=== PATIENT | male | born 1965 | race Caucasian/White ===

== ENCOUNTER 2017-01-13 07:59 | Inpatient (IN) | payer BC, OTHER ==
[~2017-01-13] VITALS: Ht 177.8 cm; Wt 98.7 kg
[2017-01-13] VITALS (22 sets, daily range): BP systolic 72–122; BP diastolic 60–82; PULSE 93–112; TEMP 36.6–37.3; O2SAT 92–96; Ht 177.8 cm; Wt 98.7 kg
[~2017-01-13 07:59] MED LIST: ASPI81TA21 PO; LEVO200T PO; LISI20TA3 PO; SIMV80TA2 PO
[2017-01-13] MEDS ORDERED: SODIUM CHLORIDE 0.9% 1000ML 2,000 ML IV STA (08:07)
[2017-01-13] MEDS ORDERED: ONDANSETRON INJ 2 MG/ML 2 ML VIAL IV STA (08:07)
[2017-01-13] MEDS ORDERED: MoRPHine SULFATE 10 MG/ML CARP/VIAL IV STA (08:07)
[2017-01-13] MEDS ORDERED: OPTIRAY 320 IV PRN (08:15)
--- NOTE | 2017-01-13 08:17 | EMERGENCY ROOM VISIT NOTE ---
History Report prepared by [place]: Austyn Dugan Under the Supervision of: Dr. Naveen Cavazos D.O. First contact with patient: 08:00 Chief Complaint: ABDOMINAL PAIN Stated Complaint: abd pain Nursing Triage Summary: pt arrives via Ems reports awoke with R groin pain radiates into RUQ and abdomen reports hx of hernia with 7hernia repairs History of Present Illness The patient is a 51 year old male who presents to the Emergency Room by EMS with complaints of constant abdominal pain beginning shortly prior to arrival. He has a history of an inguinal hernia that has been present for years. He notes that he has a history of six previous hernias. The patient states that his current pain feels unlike any he has ever had before. He also complains of pain in his groin. His last normal bowel movement was yesterday. The patient states that his pain began suddenly after waking up and turning off his alarm clock. He states that his pain radiates into his back. Pt denies headache, change in vision, fevers, chest pain, shortness of breath, diarrhea, pain with urination, and melena. He has no history of an appendectomy or cholecystectomy. The patient was seen in July 2012 for his inguinal hernia, but it was unable to be reduced. Source of History: patient Onset: Shortly prior to arrival Position: abdomen Timing: constant Associated Symptoms: + back pain, No fevers, No chest pain, No SOB, No nausea, No vomiting Note: The patient also complains of pain radiating into his groin. Review of Systems See HPI for pertinent positives & negatives. A total of 10 systems reviewed and were otherwise negative. Past Medical & Surgical Medical Problems: (1) Aortic aneurysm Family History Myocardial infarction at age less than 60 Social History Smoking Status: Current Every Day Smoker Marital Status: single Occupation Status: employed Current/Historical Medications Scheduled Aspirin Enteric Coated (Ecotrin Or Generic), 81 MG PO DAILY Levothyroxine Sodium (Synthroid), 200 MCG PO DAILY Lisinopril (Prinivil), 20 MG PO DAILY Simvastatin (Zocor), 80 MG PO QAM Allergies Coded Allergies: No Known Allergies (Unverified , 10/31/06) Physical Exam Vital Signs Date Time Temp Pulse Resp B/P (MAP) Pulse Ox O2 Delivery O2 Flow Rate FiO2 01/13/17 10:50 98 28 120/80 91 Nasal Cannula 2.0 01/13/17 10:15 92 Room Air 01/13/17 09:41 114 28 132/70 92 Room Air 01/13/17 08:00 36.6 72 20 141/86 96 Room Air Physical Exam GENERAL: Sitting up in bed, disheveled, moderate distress, holding right mid abdomen EYE EXAM: normal conjunctiva OROPHARYNX: no exudate, no erythema, lips, buccal mucosa, and tongue normal and mucous membranes are moist NECK: supple, no nuchal rigidity, no adenopathy, non-tender LUNGS: Clear to auscultation. Normal chest wall mechanics HEART: no murmurs, S1 normal and S2 normal ABDOMEN: Acutely tender to palpation throughout the right side of the abdomen. no masses, no rebound or guarding. BACK: Back is symmetrical on inspection and there is no deformity, no midline tenderness, no CVA tenderness. : Normal external genitalia. Right inguinal hernia which is non-tender. Tentacles are non-tender. SKIN: no rashes and no bruising UPPER EXTREMITIES: upper extremities are grossly normal. LOWER EXTREMITIES: No pitting edema. NEURO EXAM: Normal sensorium, cranial nerves II-XII grossly intact, normal speech, no gross weakness of arms, no gross weakness of legs. Medical Decision & Procedures ER Provider Diagnostic Interpretation: CT:Per my review, radiologist interpretation CT ABD/PELVIS IV CONTRAST ONLY FINDINGS: Lower chest: There are dependent atelectatic changes. Is small hiatal hernia. Liver: There is a stable 7 mm hepatic hypodensity likely representing a cyst. Gallbladder: Unremarkable. Spleen: Normal in size and attenuation. Pancreas: Unremarkable. Adrenal glands: Unremarkable. Kidneys: There is symmetric renal cortical enhancement. The kidneys are normal in size without hydronephrosis. Bowel: There is a right inguinal hernia which contains a knuckle of sigmoid colon. There is sigmoid colon wall thickening. There is scattered sigmoid diverticula. There is mild diffuse infiltration of the peritoneal fat. There are scattered extraluminal air bubbles. In the setting of abdominal pain, the findings are indicative of a perforated viscus. There is infiltration of the fat within the right inguinal hernia. There are no transition zone to indicate a high-grade bowel obstruction.. There is infiltration the periappendiceal fat. This may be a secondary finding given the diffuse pelvic inflammatory changes. A perforated appendicitis cannot be excluded, although this diagnosis is not suspected Peritoneum: There are small droplets of free intraperitoneal air. There is minimal free fluid within the abdomen and pelvis. Vasculature: The abdominal aorta is normal in course and caliber. Adenopathy: None. Pelvic viscera: The bladder, and pelvic viscera are unremarkable. Skeletal structures: No destructive osseous lesions are seen. IMPRESSION: 1. Small amounts of free intraperitoneal air. In the setting of abdominal pain, the findings are indicative of a perforated viscus. Surgical consultation is recommended 2. Right inguinal hernia containing a small knuckle of sigmoid colon. There is fluid within the hernia sac and infiltration of the fat within the hernia sac. 3. Scattered sigmoid diverticula. Sigmoid wall thickening. Infiltration of the pelvic peritoneal fat. Perforated diverticulitis must be considered as a possible etiology of the patient's free intraperitoneal air 4. No current evidence of bowel obstruction Electronically signed by: Thaddeus Lewis M.D. 01/13/2017 9:33 AM Laboratory Results 01/13/17 08:05 Red Blood Count 5.43, Mean Corpuscular Volume 93.2, Mean Corpuscular Hemoglobin 29.7, Mean Corpuscular Hemoglobin Concent 31.8, Mean Platelet Volume 10.3, Neutrophils (%) (Auto) 69.0, Lymphocytes (%) (Auto) 21.9, Monocytes (%) (Auto) 6.8, Eosinophils (%) (Auto) 1.2, Basophils (%) (Auto) 0.2, Neutrophils # (Auto) 5.57, Lymphocytes # (Auto) 1.77, Monocytes # (Auto) 0.55, Eosinophils # (Auto) 0.10, Basophils # (Auto) 0.02 01/13/17 08:05 Test 01/13/17 08:05 01/13/17 08:30 01/13/17 08:39 01/13/17 10:20 White Blood Count 8.08 K/uL (4.8-10.8) Red Blood Count 5.43 M/uL (4.7-6.1) Hemoglobin 16.1 g/dL (14.0-18.0) Hematocrit 50.6 % (42-52) Mean Corpuscular Volume 93.2 fL (80-100) Mean Corpuscular Hemoglobin 29.7 pg (25-34) Mean Corpuscular Hemoglobin Concent 31.8 g/dl (32-36) Platelet Count 177 K/uL (130-400) Mean Platelet Volume 10.3 fL (7.4-10.4) Neutrophils (%) (Auto) 69.0 % Lymphocytes (%) (Auto) 21.9 % Monocytes (%) (Auto) 6.8 % Eosinophils (%) (Auto) 1.2 % Basophils (%) (Auto) 0.2 % Neutrophils # (Auto) 5.57 K/uL (1.4-6.5) Lymphocytes # (Auto) 1.77 K/uL (1.2-3.4) Monocytes # (Auto) 0.55 K/uL (0.11-0.59) Eosinophils # (Auto) 0.10 K/uL (0-0.5) Basophils # (Auto) 0.02 K/uL (0-0.2) RDW Standard Deviation 50.1 fL (36.4-46.3) RDW Coefficient of Variation 14.6 % (11.5-14.5) Immature Granulocyte % (Auto) 0.9 % Immature Granulocyte # (Auto) 0.07 K/uL (0.00-0.02) Red Blood Cell Morphology Unremarkable Est Creatinine Clear Calc Drug Dose 118.5 ml/min Estimated GFR () 116.9 Estimated GFR (Non- 100.9 BUN/Creatinine Ratio 23.8 (10-20) Calcium Level 8.9 mg/dl (8.5-10.1) Total Bilirubin 0.3 mg/dl (0.2-1) Direct Bilirubin < 0.1 mg/dl (0-0.2) Aspartate Amino Transf (AST/SGOT) 16 U/L (15-37) Alanine Aminotransferase (ALT/SGPT) 32 U/L (12-78) Alkaline Phosphatase 57 U/L (45-117) Total Protein 7.0 gm/dl (6.4-8.2) Albumin 4.1 gm/dl (3.4-5.0) Lipase 848 U/L (73-393) Lactic Acid Level 1.3 mmol/L (0.4-2.0) Bedside Hemoglobin 16.7 g/dl (14.0-18.0) Bedside Hematocrit 49 % (42-52) Bedside Sodium 143 mEq/L (135-144) Bedside Potassium 4.6 mEq/L (3.3-5.0) Bedside Chloride 106 mEq/L (101-112) Bedside Total CO2 21 mEq/l (24-31) Anion Gap 22.0 mmol/L (16-25) Bedside Blood Urea Nitrogen 22 mg/dl (7-18) Bedside Creatinine 0.8 mg/dl (0.6-1.3) Bedside Glucose (other) 125 mg/dl (70-99) Bedside Ionized Calcium (Shankar) 1.18 mmol/l (1.12-1.32) Urine Color YELLOW Urine Appearance CLEAR (CLEAR) Urine pH 5.5 (4.5-7.5) Urine Specific Oliver > 1.045 (1.000-1.030) Urine Protein NEG (NEG) Urine Glucose (UA) NEG (NEG) Urine Ketones NEG (NEG) Urine Occult Blood 1+ (NEG) Urine Nitrite NEG (NEG) Urine Bilirubin NEG (NEG) Urine Urobilinogen NEG (NEG) Urine Leukocyte Esterase NEG (NEG) Urine WBC (Auto) 5-10 /hpf (0-5) Urine RBC (Auto) 0-4 /hpf (0-4) Urine Hyaline Casts (Auto) 1-5 /lpf (0-5) Urine Epithelial Cells (Auto) 20-30 /lpf (0-5) Urine Bacteria (Auto) NEG (NEG) Laboratory results per my review. Medications Administered Medications (Trade) Dose Ordered Sig/Luis Fernando Route Start Time Stop Time Status Last Admin Dose Admin Sodium Chloride 2,000 ml @ 999 mls/hr Q2H1M STAT IV 01/13/17 08:07 01/13/17 10:07 DC 01/13/17 08:12 999 MLS/HR Ondansetron HCl (Zofran Inj) 4 mg NOW STAT IV 01/13/17 08:07 01/13/17 08:09 DC 01/13/17 08:12 4 MG Morphine Sulfate (MoRPHine SULFATE INJ) 6 mg NOW STAT IV 01/13/17 08:07 01/13/17 08:09 DC 01/13/17 08:12 6 MG Hydromorphone HCl (Dilaudid Inj) 1 mg NOW STAT IV 01/13/17 08:24 01/13/17 08:25 DC 01/13/17 08:32 1 MG Fentanyl Citrate (Fentanyl Inj) 50 mcg NOW STAT IV 01/13/17 08:41 01/13/17 08:43 DC 01/13/17 08:41 50 MCG Fentanyl Citrate (Fentanyl Inj) 100 mcg ONE ONCE IV 01/13/17 09:30 01/13/17 09:31 DC 01/13/17 09:30 100 MCG Piperacillin Sod/ Tazobactam Sod (Zosyn Iv) 4.5 gm NOW STAT IV 01/13/17 09:36 01/13/17 09:37 DC 01/13/17 09:36 4.5 GM Fentanyl Citrate (Fentanyl Inj) 50 mcg NOW STAT IV 01/13/17 10:33 01/13/17 10:34 DC 01/13/17 10:33 50 MCG Hydromorphone HCl (Dilaudid Inj) 1 mg STK-MED ONCE .ROUTE 01/13/17 11:00 01/13/17 11:01 DC 01/13/17 11:00 1 MG Metronidazole 500 mg/Prmx 100 ml @ 100 mls/hr TODAY@1200 IV 01/13/17 12:00 01/13/17 16:00 01/13/17 12:15 100 MLS/HR Piperacillin Sod/ Tazobactam Sod 4.5 gm/Dextrose 120 ml @ 200 mls/hr TODAY@1200 IV 01/13/17 12:00 01/13/17 16:00 01/13/17 12:15 200 MLS/HR Vancomycin HCl (Vancomycin Inj) 100 mg STK-MED ONCE .ROUTE 01/13/17 12:41 01/13/17 12:42 DC 01/13/17 12:41 100 MG Lidocaine HCl (Xylocaine 1% Inj (Local)) 20 ml STK-MED ONCE .ROUTE 01/13/17 12:42 01/13/17 12:43 DC 01/13/17 12:42 20 ML Bacitracin (Bacitracin Oint) 45 appln STK-MED ONCE .ROUTE 01/13/17 12:42 01/13/17 12:43 DC 01/13/17 13:37 45 APPLN Bupivacaine HCl (Marcaine 0.5% MPF Inj) 30 ml STK-MED ONCE .ROUTE 01/13/17 12:42 01/13/17 12:43 DC 01/13/17 12:42 30 ML ED Course ED COURSE: Vital signs were reviewed and showed hypertension The patients medical record was reviewed The above diagnostic studies were performed and reviewed. ED treatments and interventions as stated above. 0804: The patient was evaluated in room A3. A complete history and physical examination was performed. 0807: Ordered Morphine Sulfate 6 mg IV, Zofran Inj 4 mg IV, Sodium Chloride 2000 ml @ 999 mls/hr IV. 0824: Ordered Dilaudid Inj 1 mg IV. 0838: The patient is still having significant pain, and states that the pain is going through to his back. 0841: Ordered Fentanyl Inj 50 mcg IV. 0930: Ordered Fentanyl Inj 100 mcg IV. 0936: Ordered Zosyn IV 4.5 gm IV. 0912: The patient has seen no relief from his pain medication. 0945: Upon reevaluation, the patient is resting comfortably. I discussed my findings with the patient and he understands and agrees with the treatment plan. Based on the patients age, coexisting illnesses, exam and lab findings the decision to treat as an inpatient was made. The patient remained stable while under my care. The patient will be evaluated for further management. Medical Decision Differential diagnoses includes but is not limited to gastritis, peptic ulcer disease, GERD, gallbladder disease, pancreatitis, small bowel obstruction, acute coronary syndrome, pericarditis, ischemic bowel, irritable bowel disease, irritable bowel syndrome, appendicitis, diverticulitis, malignancy, hernia, urinary tract infection, torsion, perforation, trauma, infectious. Patient is a 51-year-old male who presents the ER for severe right sided abdominal pain. On exam he does have a inguinal hernia which is nonreducible. He was given IV morphine, Dilaudid and fentanyl with no significant improvement of his pain. He did become hypoxic and was placed on nasal cannula. CT of his abdomen pelvis shows free air associated with fluid around his right inguinal hernia favor an incarcerated hernia. General surgery was consulted emergently. He was given Zosyn. She was given a bolus of normal saline. Patient was admitted and taken to the OR with peritonitis and a perforation likely secondary to his incarcerated hernia. Consults Time Called: [phone] Consulting Physician: Kate Mccrary PA-C -General Surgery Returned Call: [phone] I reviewed the patient's case with Kate Mccrary PA-C. She will evaluate the patient for further management. Impression Primary Impression: Peritonitis Additional Impressions: Intra-abdominal free air of unknown etiology Incarcerated hernia Critical Care I have personally spent 35 minutes of critical care time in the direct management of this patient. This includes bedside care, interpretation of diagnostic studies, and testing, discussion with consultants, patient, and family members, and other required patient management activities. This 35 minutes is in excess of all separately billable procedures. Scribe Attestation The scribe's documentation has been prepared under my direction and personally reviewed by me in its entirety. I confirm that the note above accurately reflects all work, treatment, procedures, and medical decision making performed by me. Departure Information Dispostion Being Evaluated By Surgeon Tc Lockett Jr,D.O. (PCP) Patient Instructions My [facility] Problem Qualifiers
[2017-01-13 08:20] LABS: HEMATOCRIT 50.6 % (42-52); MEAN CELL VOLUME 93.2 fL (80-100); MEAN CORPUSCULAR HEMOGLOBIN 29.7 pg (25-34); MEAN CORPUSCULAR HGB CONC 31.8 g/dl (32-36); MEAN PLATELET VOLUME 10.3 fL (7.4-10.4); PLATELET COUNT 177 K/uL (130-400); RED BLOOD COUNT 5.43 M/uL (4.7-6.1); WHITE BLOOD COUNT 8.08 K/uL (4.8-10.8)
[2017-01-13] MEDS ORDERED: HYDROmorphone INJ 1 MG/ML SYR IV STA (08:24)
[2017-01-13 08:39] LABS: BASO % 0.2 %; BASO ABS # 0.02 K/uL (0-0.2); COMPLETE YES; EOS % 1.2 %; IG% 0.9 %; LYMPH % 21.9 %; LYMPH ABS # 1.77 K/uL (1.2-3.4); MONO % 6.8 %
[2017-01-13] MEDS ORDERED: FENTANYL CITRATE INJ 50 MCG/1 ML 2 ML VIAL IV STA ×2 (08:41→10:33)
[2017-01-13 08:44] LABS: ALT/SGPT 32 U/L (12-78); BLOOD UREA NITROGEN 21 mg/dl (7-18); BUN/CREATININE RATIO 23.8 (10-20); CARBON DIOXIDE 24 mmol/L (21-32); CHLORIDE 111 mmol/L (98-107); CREATININE 0.88 mg/dl (0.60-1.40); GLUCOSE 124 mg/dl (70-99); POTASSIUM 4.4 mmol/L (3.5-5.1); SODIUM 144 mmol/L (136-145)
[2017-01-13 08:47] LABS: ALKALINE PHOSPHATASE 57 U/L (45-117); AST/SGOT 16 U/L (15-37)
[2017-01-13 08:50] LABS: CALCIUM 8.9 mg/dl (8.5-10.1)
[2017-01-13 08:52] LABS: ISTAT CREATININE 0.8 mg/dl (0.6-1.3); ISTAT HEMOGLOBIN 16.7 g/dl (14.0-18.0); ISTAT IONIZED CALCIUM 1.18 mmol/l (1.12-1.32)
[2017-01-13] MEDS ORDERED: FENTANYL CITRATE INJ 50 MCG/1 ML 2 ML VIAL IV ONE (09:30)
--- NOTE | 2017-01-13 09:34 | DIAGNOSTIC IMAGING REPORT ---
CT ABD/PELVIS IV CONTRAST ONLY CLINICAL HISTORY: Right-sided abdominal pain COMPARISON STUDY: 10/04/2013 TECHNIQUE: Following the IV administration of 91 mL of Optiray-320, CT scan of the abdomen and pelvis was performed from the lung bases to the proximal femurs. Images are reviewed in the axial, sagittal, and coronal planes. IV contrast was administered without complication. CT DOSE: 625.48 mGy.cm FINDINGS: Lower chest: There are dependent atelectatic changes. Is small hiatal hernia. Liver: There is a stable 7 mm hepatic hypodensity likely representing a cyst. Gallbladder: Unremarkable. Spleen: Normal in size and attenuation. Pancreas: Unremarkable. Adrenal glands: Unremarkable. Kidneys: There is symmetric renal cortical enhancement. The kidneys are normal in size without hydronephrosis. Bowel: There is a right inguinal hernia which contains a knuckle of sigmoid colon. There is sigmoid colon wall thickening. There is scattered sigmoid diverticula. There is mild diffuse infiltration of the peritoneal fat. There are scattered extraluminal air bubbles. In the setting of abdominal pain, the findings are indicative of a perforated viscus. There is infiltration of the fat within the right inguinal hernia. There are no transition zone to indicate a high-grade bowel obstruction.. There is infiltration the periappendiceal fat. This may be a secondary finding given the diffuse pelvic inflammatory changes. A perforated appendicitis cannot be excluded, although this diagnosis is not suspected Peritoneum: There are small droplets of free intraperitoneal air. There is minimal free fluid within the abdomen and pelvis. Vasculature: The abdominal aorta is normal in course and caliber. Adenopathy: None. Pelvic viscera: The bladder, and pelvic viscera are unremarkable. Skeletal structures: No destructive osseous lesions are seen. IMPRESSION: 1. Small amounts of free intraperitoneal air. In the setting of abdominal pain, the findings are indicative of a perforated viscus. Surgical consultation is recommended 2. Right inguinal hernia containing a small knuckle of sigmoid colon. There is fluid within the hernia sac and infiltration of the fat within the hernia sac. 3. Scattered sigmoid diverticula. Sigmoid wall thickening. Infiltration of the pelvic peritoneal fat. Perforated diverticulitis must be considered as a possible etiology of the patient's free intraperitoneal air 4. No current evidence of bowel obstruction Electronically signed by: Thaddeus Lewis M.D. 01/13/2017 9:33 AM Dictated Date/Time: 01/13/2017 9:19 AM
[2017-01-13] MEDS ORDERED: PIPERACILLIN/TAZOBACTAM 4.5 GM/100ML D5W IV STA (09:36)
--- NOTE | 2017-01-13 10:28 | History and Physical: Surg Cnt ---
History & Physical Date Jan 13, 2017. Chief Complaint Abdominal pain, RLQ around to back History of Present Illness The patient is a 51 year old male with complaints of right sided abdominal pain with radiation to the back that began this morning. States he woke up this morning and pain was severe. States he was in his normal state of health yesterday and was even at his doctors office for routine examination. States he has a known right inguinal hernia for years and has not bothered him. States he has a bulge in the right groin at times but is able to reduce back in. Last bowel movement a few days ago and was normal. Has had 6 previous inguinal hernia repairs in the past. 3 on the right side and 3 on the left. His last hernia repair was in the 's on the left side. 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 Has never had this type of pain before. Labs showed no leukocytosis and lactic acid normal at 1.3. CT scan shows right inguinal hernia with a knuckle of sigmoid colon and sigmoid wall thickening with extraluminal air suggesting perforated viscous. Acute diverticulitis with perforation cannot be excluded. Past Medical/Surgical History Medical Problems: (1) Aortic aneurysm Allergies Coded Allergies: No Known Allergies (Unverified , 10/31/06) Home Medications Scheduled Aspirin Enteric Coated (Ecotrin Or Generic), 81 MG PO DAILY Levothyroxine Sodium (Synthroid), 200 MCG PO DAILY Lisinopril (Prinivil), 20 MG PO DAILY Simvastatin (Zocor), 80 MG PO QAM Physical Examination Skin: warm/dry, no rash Eyes: sclerae normal Head: normocephalic, atraumatic Neck: trachea midline Respiratory/Chest: no respiratory distress Cardiovascular: + pertinent finding (tachycardic) Abdomen / GI: + pertinent finding (peritonitis of the entire abdomen, with rigidity and guarding in the RLQ) Back: normal inspection Extremities: normal inspection Neurologic/Psych: alert, oriented x 3 Addiitonal Comments: patient in moderate distress, uncomfortable Diagnosis CT ABD/PELVIS IV CONTRAST ONLY CLINICAL HISTORY: Right-sided abdominal pain COMPARISON STUDY: 10/04/2013 TECHNIQUE: Following the IV administration of 91 mL of Optiray-320, CT scan of the abdomen and pelvis was performed from the lung bases to the proximal femurs. Images are reviewed in the axial, sagittal, and coronal planes. IV contrast was administered without complication. CT DOSE: 625.48 mGy.cm FINDINGS: Lower chest: There are dependent atelectatic changes. Is small hiatal hernia. Liver: There is a stable 7 mm hepatic hypodensity likely representing a cyst. Gallbladder: Unremarkable. Spleen: Normal in size and attenuation. Pancreas: Unremarkable. Adrenal glands: Unremarkable. Kidneys: There is symmetric renal cortical enhancement. The kidneys are normal in size without hydronephrosis. Bowel: There is a right inguinal hernia which contains a knuckle of sigmoid colon. There is sigmoid colon wall thickening. There is scattered sigmoid diverticula. There is mild diffuse infiltration of the peritoneal fat. There are scattered extraluminal air bubbles. In the setting of abdominal pain, the findings are indicative of a perforated viscus. There is infiltration of the fat within the right inguinal hernia. There are no transition zone to indicate a high-grade bowel obstruction.. There is infiltration the periappendiceal fat. This may be a secondary finding given the diffuse pelvic inflammatory changes. A perforated appendicitis cannot be excluded, although this diagnosis is not suspected Peritoneum: There are small droplets of free intraperitoneal air. There is minimal free fluid within the abdomen and pelvis. Vasculature: The abdominal aorta is normal in course and caliber. Adenopathy: None. Pelvic viscera: The bladder, and pelvic viscera are unremarkable. Skeletal structures: No destructive osseous lesions are seen. IMPRESSION: 1. Small amounts of free intraperitoneal air. In the setting of abdominal pain, the findings are indicative of a perforated viscus. Surgical consultation is recommended 2. Right inguinal hernia containing a small knuckle of sigmoid colon. There is fluid within the hernia sac and infiltration of the fat within the hernia sac. 3. Scattered sigmoid diverticula. Sigmoid wall thickening. Infiltration of the pelvic peritoneal fat. Perforated diverticulitis must be considered as a possible etiology of the patient's free intraperitoneal air 4. No current evidence of bowel obstruction DIAGNOSIS Incarcerated Right inguinal hernia containing Sigmoid colon with free intraperitoneal air -concern for sigmoid colon perforation due to incarceration or acute diverticulitis - abdominal examination shows peritonitis and rigidity - nonreducible right inguinal hernia - no leukocytosis - lactic acid 1.3 Plan of Treatment Plan to take patient back to operating room for exploratory laparotomy, possible bowel resection, possible ostomy, possible right inguinal hernia repair Informed patient of procedure and risks including bleeding, infection, injury to surrounding organs/tissues, cardiopulmonary complications, blood clots, including . Patient understood and informed consent obtained Will be admitted to Med/surg floor post operatively Has received IV zosyn and 1 L of NS 1 L of LR wide open Continue IV Zosyn 1 mg of IV Dilaudid stat Dr. Whitten has seen and examined patient, agrees with assessment and plan.
[2017-01-13 10:41] LABS: URINE APPEARANCE CLEAR (CLEAR); URINE BILIRUBIN NEG (NEG); URINE COLOR YELLOW; URINE EPITHELIAL CELL AUTO 20-30 /lpf (0-5); URINE NITRITE NEG (NEG); URINE PH 5.5 (4.5-7.5); URINE SPECIFIC GRAVITY > 1.045 (1.000-1.030); UROBILINOGEN NEG (NEG); ZZUR CULT IF INDIC CLEAN CATCH NO
[2017-01-13 10:43] LABS: MANUAL MICROSCOPIC REQUIRED? NO; REVIEW REQ? NO
[2017-01-13] MEDS ORDERED: HYDROmorphone INJ 1 MG/ML SYR ONE (11:00)
--- NOTE | 2017-01-13 11:32 | History & Physical Bridge Note ---
H&P Re-Evaluation Bridge Note: I have examined the patient, reviewed the History & Physical and in the interval since the performance of the History & Physical I have noted the following changes of clinical significance: No changes noted
[2017-01-13] MEDS ORDERED: NURSING VERBAL MED ORDER ONE (11:45)
[2017-01-13] MEDS ORDERED: KETAMINE HCL INJ 50 MG/ML 10 ML VIAL ONE (11:50)
[2017-01-13] MEDS ORDERED: FENTANYL CITRATE INJ 50 MCG/1 ML 2 ML VIAL ONE ×3 (11:50→14:18)
[2017-01-13] MEDS ORDERED: MIDAZOLAM HCL 1 MG/ML 2ML VIAL ONE (11:50)
[2017-01-13] MEDS ORDERED: PIPERACILL/TAZOBAC IV 4.5 GM in DEXTROSE 5% 100ML IV SCH (12:00)
[2017-01-13] MEDS ORDERED: METRONIDAZOLE 500MG / NSS IV SCH (12:00)
[2017-01-13] MEDS ORDERED: HYDROmorphone INJ 2 MG/ML SYR/VIAL ONE ×3 (12:37→16:14)
[2017-01-13] MEDS ORDERED: VANCOMYCIN HCL 1000MG/20ML VIAL ONE (12:41)
[2017-01-13] MEDS ORDERED: LIDOCAINE HCL 1% 20 ML VIAL ONE (12:42)
[2017-01-13] MEDS ORDERED: BUPIVACAINE 0.5 % 5 MG/1 ML MPF 30ML VIAL ONE (12:42)
[2017-01-13] MEDS ORDERED: BACITRACIN OINT 15 GM TUBE ONE (12:42)
[2017-01-13] MEDS ORDERED: EpHEDrine SULFATE INJ 50 MG/ML AMP IV PRN (14:00)
[2017-01-13] MEDS ORDERED: ONDANSETRON INJ 2 MG/ML 2 ML VIAL IV PRN ×2 (14:00→15:45)
[2017-01-13] MEDS ORDERED: ATROPINE SULFATE 0.1 MG/ML 5ML SYR IV PRN (14:00)
[2017-01-13] MEDS ORDERED: CISATRACURIUM BESYLATE IV SOLN 2 MG/ML 10 ML VIAL ONE (14:31)
[2017-01-13] MEDS ORDERED: ONDANSETRON INJ 2 MG/ML 2 ML VIAL ONE (14:31)
[2017-01-13] MEDS ORDERED: SUCCINYLCHOLINE CHLORIDE 20 MG/ML 10 ML VIAL IV ONE (14:31)
[2017-01-13] MEDS ORDERED: GLYCOPYRROLATE INJ 0.2 MG/ML VIAL ONE (14:31)
[2017-01-13] MEDS ORDERED: PHENYLEPHRINE HCL INJ 10 MG/ML VIAL ONE (14:31)
[2017-01-13] MEDS ORDERED: NEOSTIGMINE METHYLSULFATE 5 MG/5 ML SYR ONE (14:31)
[2017-01-13] MEDS ORDERED: DEXAMETHASONE SOD INJ 4 MG/ML VIAL ONE (14:31)
[2017-01-13] MEDS ORDERED: VASOPRESSIN 20 UNIT/ML VIAL ONE (15:02)
--- NOTE | 2017-01-13 15:34 | [facility] Post Operative Brief Note ---
Immediate Operative Summary Operative Date Jan 13, 2017. Pre-Operative Diagnosis incarcerated right inguinal hernia, pneumoperitoneum Post-Operative Diagnosis incarcerated right inguinal hernia, pneumoperitoneum, perforated sigmoid colon Procedure(s) Performed Exploratory Laparotomy; Sigmoid Colon Resection, Creation Greg Pouch, Colostomy, primary Repair Right Inguinal Hernia Surgeon Dr. Nacho Whitten [employer] Workflow Consultant Surgeon(s) Valencia Mccrary PA-C Estimated Blood Loss 30mL Findings perforation of sigmoid colon, peritonitis, incarcerated right inguinal hernia Fluids (cc crystalloids) 5000ml Specimens B. Right Hernia Sac, sigmoid colon Drains AYDIN X 1, right inguinal drainage with ayah Anesthesia general Complication(s) None Disposition Surgical ICU
[2017-01-13] MEDS: FENTANYL CITRATE INJ 50 MCG/1 ML 2 ML VIAL IV PRN ×4 (15:42→15:57)
[2017-01-13] MEDS ORDERED: ACETAMINOPHEN 325 MG TAB PO PRN (15:45)
[2017-01-13] MEDS: HYDROmorphone INJ 1 MG/ML SYR IV PRN ×4 (16:14→21:48)
--- NOTE | 2017-01-13 16:41 | Anesthesiology Progress Note ---
Anesthesia Post Op Note Date & Time Jan 13, 2017 at 16:41 Vital Signs Pain Intensity: 4 Vital Signs Past 12 Hours Date Time Temp Pulse Resp B/P (MAP) Pulse Ox O2 Delivery O2 Flow Rate FiO2 01/13/17 16:30 37.4 106 14 115/86 93 Nasal Cannula 4 01/13/17 16:20 37.4 104 14 125/81 93 Nasal Cannula 4 01/13/17 16:10 104 14 124/71 93 Nasal Cannula 4 01/13/17 16:00 105 14 133/86 93 Nasal Cannula 4 01/13/17 15:50 96 14 144/84 92 Nasal Cannula 4 01/13/17 15:40 101 14 138/93 96 Mask 10 01/13/17 15:32 37.1 101 14 146/105 95 Mask 10 01/13/17 10:50 98 28 120/80 91 Nasal Cannula 2.0 01/13/17 10:15 92 Room Air 01/13/17 09:41 114 28 132/70 92 Room Air 01/13/17 08:00 36.6 72 20 141/86 96 Room Air Notes Mental Status: alert / awake / arousable, participated in evaluation Pt Amnestic to Procedure: Yes Nausea / Vomiting: adequately controlled Pain: adequately controlled Airway Patency, RR, SpO2: stable & adequate BP & HR: stable & adequate Hydration State: stable & adequate Anesthetic Complications: no major complications apparent
[2017-01-13] MEDS ORDERED: PIPERACILL/TAZOBAC CONSULT ACTIVE PRN ×2 (17:30→18:10)
[2017-01-13] MEDS ORDERED: VANCOMYCIN CONSULT ACTIVE PRN ×2 (17:30→18:09)
[2017-01-13] MEDS ORDERED: VANCOMYCIN INJ 2,400 MG in SODIUM CHLORIDE 0.9% 500ML 500 ML IV SCH (18:00)
[2017-01-13 18:10] LABS: PROTHROMBIN TIME (PATIENT) 10.9 SECONDS (9.0-12.0)
--- NOTE | 2017-01-13 18:13 | Critical Care Consultation ---
Critical Care Consultation Date of Consultation: Jan 13, 2017. Attending Physician: Nacho Whitten MD Reason for Consultation: post op peritonitis due to perforated viscus History of Present Illness Mr Lin is a 51 year old male who has a long standing history with inguinal hernias. he has had 3 hernia surgeries on each side in the past. He woke up this morning with right sided abdominal pain radiating to the back. He has been to his PCP the day earlier and was in his usual state of health with a bulging hernia on the right. His pain was more severe than any he had experienced before so he presented to ED where a CT scan of the abdomen showed: "Avimor 5d Small amounts of free intraperitoneal air.suggesting a perforated viscus. Right inguinal hernia with incarcerated sigmoid colon. Sigmoid diverticulae and Sigmoid wall thickening. Infiltration of the pelvic peritoneal fat and inguinal far. Therefore he was taken by Dr Whitten who performed Exploratory Laparotomy; Sigmoid Colon Resection, Creation Greg Pouch, Colostomy, primary Repair Right Inguinal Hernia. The patient received 5 liters of crystalloids intraop and had EBL of 30 ml. The patient was then transferred to MICU. He has a AYDIN drain with 50 ml of serosanguinous fluid. He reports pain 5/10, and appropriate tenderness in the belly. He denies headache chest pain or shortness of breath. Family History Myocardial infarction at age less than 60 non contributory to this admission Social History Smoking Status: Current Every Day Smoker Marital Status: single Occupation Status: employed Allergies Coded Allergies: No Known Allergies (Unverified , 10/31/06) Home Medications Scheduled Aspirin Enteric Coated (Ecotrin Or Generic), 81 MG PO DAILY Levothyroxine Sodium (Synthroid), 200 MCG PO DAILY Lisinopril (Prinivil), 20 MG PO DAILY Simvastatin (Zocor), 80 MG PO QAM Current Inpatient Medications Current Inpatient Medications Medications (Trade) Dose Ordered Sig/Luis Fernando Route Start Time Stop Time Status Last Admin Dose Admin Ioversol (Optiray 320) 100 ml UD PRN IV 01/13/17 08:15 01/17/17 08:14 Fentanyl Citrate (Fentanyl Inj) 50 mcg Q5M PRN IV 01/13/17 14:00 01/13/17 19:00 01/13/17 15:57 50 MCG Hydromorphone HCl (Dilaudid Inj) 0.5 mg Q5M PRN IV 01/13/17 14:00 01/13/17 19:00 01/13/17 16:19 0.5 MG Ondansetron HCl (Zofran Inj) 4 mg ONE PRN IV 01/13/17 14:00 01/13/17 19:00 Ephedrine Sulfate (EpHEDrine SULFATE INJ) 5 mg Q5M PRN IV 01/13/17 14:00 01/13/17 19:00 Atropine Sulfate (Atropine Sulfate 0.1MG/Ml Inj) 0.5 mg Q1M PRN IV 01/13/17 14:00 01/13/17 19:00 Potassium Chloride/Dextrose/ Sod Cl 1,000 ml @ 150 mls/hr Q6H40M IV 01/13/17 15:34 02/12/17 15:33 UNV Piperacillin Sod/ Tazobactam Sod 3.375 gm/Dextrose 115 ml @ 28.7 mls/hr Q6 IV 01/13/17 18:00 01/14/17 17:59 UNV Ondansetron HCl (Zofran Inj) 4 mg Q4H PRN IV 01/13/17 15:45 02/12/17 15:44 Acetaminophen (Tylenol Tab) 650 mg Q6H PRN PO 01/13/17 15:45 02/12/17 15:44 Hydromorphone HCl (Dilaudid Inj) 1 mg Q3H PRN IV 01/13/17 15:45 01/27/17 15:44 UNV Hydromorphone HCl (Dilaudid Inj) 1.2 mg Q3H PRN IV 01/13/17 15:45 01/27/17 15:44 UNV Vancomycin HCl 1000 mg/Sodium Chloride 270 ml @ 125 mls/hr Q12 IV 01/13/17 21:00 01/15/17 20:59 UNV Pantoprazole Sodium 40 mg/ Syringe 10 ml @ 5 mls/min DAILY@,21 IV 01/13/17 21:00 02/12/17 20:59 UNV Vancomycin HCl (Consult) 1 ea UD PRN N/A 01/13/17 17:30 02/12/17 17:29 Piperacillin Sod/ Tazobactam Sod (Consult) 1 ea UD PRN N/A 01/13/17 17:30 02/12/17 17:29 Vancomycin HCl 2400 mg/Sodium Chloride 548 ml @ 200 mls/hr TODAY@1800 IV 01/13/17 18:00 01/13/17 23:00 Levothyroxine Sodium 100 mcg/ Syringe 5 ml @ 2 mls/min DAILY@09 IV 01/14/17 09:00 02/13/17 08:59 UNV Enalaprilat 2.5 mg/Dextrose 27 ml @ 100 mls/hr Q12 IV 01/14/17 09:00 02/13/17 08:59 UNV Miscellaneous Information (Pharmacy Consult) 1 ea NOW STAT N/A 01/13/17 17:25 01/13/17 17:26 UNV Miscellaneous Information (Pharmacy Consult) 1 ea NOW STAT N/A 01/13/17 17:25 01/13/17 17:26 UNV Miscellaneous (Xopenex/ Atrovent Neb) 1 ea Q6R INH 01/13/17 21:00 02/12/17 20:59 UNV Heparin Sodium (Porcine) (Heparin Sq 5000 Unit/0.5ml) 5,000 unit Q8 SQ 01/14/17 08:00 02/13/17 07:59 UNV Review of Systems The patient admits to having hypertension hyperlipidemia and hypothryoidism with constipation. No headaches no wheezing. He says he has daily cough prodcutive of yellowish sputum. he has no urinary symptoms and no symptoms of polydipsi polyuria or diagnosis of DM. Denies chronic headaches or other pain syndromes aside from the inguinal hernia problem. No claudication or leg swelling either. Denies a history of KUSHAL. otherwise a 10 point ROS is negative Physical Exam Date Time Temp Pulse Resp B/P (MAP) Pulse Ox O2 Delivery O2 Flow Rate FiO2 01/13/17 17:30 110 25 105/71 (82) 95 01/13/17 17:15 37.3 112 23 109/68 (82) 94 Nasal Cannula 4.0 01/13/17 16:40 37.4 106 16 115/86 93 Nasal Cannula 4 01/13/17 16:30 37.4 106 14 115/86 93 Nasal Cannula 4 01/13/17 16:20 37.4 104 14 125/81 93 Nasal Cannula 4 01/13/17 16:10 104 14 124/71 93 Nasal Cannula 4 01/13/17 16:00 105 14 133/86 93 Nasal Cannula 4 01/13/17 15:50 96 14 144/84 92 Nasal Cannula 4 01/13/17 15:40 101 14 138/93 96 Mask 10 01/13/17 15:32 37.1 101 14 146/105 95 Mask 10 01/13/17 10:50 98 28 120/80 91 Nasal Cannula 2.0 01/13/17 10:15 92 Room Air 01/13/17 09:41 114 28 132/70 92 Room Air 01/13/17 08:00 36.6 72 20 141/86 96 Room Air General Appearance: mild distress Head: normocephalic, atraumatic Eyes: PERRLA, no discharge, sclerae normal ENT: normal ear exam, poor dentition Neck: normal range of motion, supple Respiratory: wheezing (bilateral end expiratory) Cardiovasular: regular rate/rhythm, normal S1S2, no M/G/R Abdomen: other (right paraambilical and inguinal dressing with colostomy in the LLQ, clean and pink. with minimal clear fluid in the bag. There is no oozing or bleeding. He has direct tenderness in the RLQ and epigastic areas less so in the LLQ) Genitourinary - Male: external genitalia normal Upper Extremities: no edema, other (no cyanosis and no clubbing) Lower Extremities: no edema (no cyanosis and no clubbing) Neuro: alert, oriented x 3, normal motor exam Psychiatric: normal affect Laboratory Results Last 24 Hours Test 01/13/17 08:05 01/13/17 08:30 01/13/17 08:39 01/13/17 10:20 White Blood Count 8.08 K/uL Red Blood Count 5.43 M/uL Hemoglobin 16.1 g/dL Hematocrit 50.6 % Mean Corpuscular Volume 93.2 fL Mean Corpuscular Hemoglobin 29.7 pg Mean Corpuscular Hemoglobin Concent 31.8 g/dl Platelet Count 177 K/uL Mean Platelet Volume 10.3 fL Neutrophils (%) (Auto) 69.0 % Lymphocytes (%) (Auto) 21.9 % Monocytes (%) (Auto) 6.8 % Eosinophils (%) (Auto) 1.2 % Basophils (%) (Auto) 0.2 % Neutrophils # (Auto) 5.57 K/uL Lymphocytes # (Auto) 1.77 K/uL Monocytes # (Auto) 0.55 K/uL Eosinophils # (Auto) 0.10 K/uL Basophils # (Auto) 0.02 K/uL RDW Standard Deviation 50.1 fL RDW Coefficient of Variation 14.6 % Immature Granulocyte % (Auto) 0.9 % Immature Granulocyte # (Auto) 0.07 K/uL Red Blood Cell Morphology Unremarkable Sodium Level 144 mmol/L Potassium Level 4.4 mmol/L Chloride Level 111 mmol/L Carbon Dioxide Level 24 mmol/L Anion Gap 9.0 mmol/L 22.0 mmol/L Blood Urea Nitrogen 21 mg/dl Creatinine 0.88 mg/dl Est Creatinine Clear Calc Drug Dose 118.5 ml/min Estimated GFR () 116.9 Estimated GFR (Non- 100.9 BUN/Creatinine Ratio 23.8 Random Glucose 124 mg/dl Calcium Level 8.9 mg/dl Total Bilirubin 0.3 mg/dl Direct Bilirubin < 0.1 mg/dl Aspartate Amino Transf (AST/SGOT) 16 U/L Alanine Aminotransferase (ALT/SGPT) 32 U/L Alkaline Phosphatase 57 U/L Total Protein 7.0 gm/dl Albumin 4.1 gm/dl Lipase 848 U/L Lactic Acid Level 1.3 mmol/L Bedside Hemoglobin 16.7 g/dl Bedside Hematocrit 49 % Bedside Sodium 143 mEq/L Bedside Potassium 4.6 mEq/L Bedside Chloride 106 mEq/L Bedside Total CO2 21 mEq/l Bedside Blood Urea Nitrogen 22 mg/dl Bedside Creatinine 0.8 mg/dl Bedside Glucose (other) 125 mg/dl Bedside Ionized Calcium (Shankar) 1.18 mmol/l Urine Color YELLOW Urine Appearance CLEAR Urine pH 5.5 Urine Specific [place] > 1.045 Urine Protein NEG Urine Glucose (UA) NEG Urine Ketones NEG Urine Occult Blood 1+ Urine Nitrite NEG Urine Bilirubin NEG Urine Urobilinogen NEG Urine Leukocyte Esterase NEG Urine WBC (Auto) 5-10 /hpf Urine RBC (Auto) 0-4 /hpf Urine Hyaline Casts (Auto) 1-5 /lpf Urine Epithelial Cells (Auto) 20-30 /lpf Urine Bacteria (Auto) NEG Test 01/13/17 17:37 01/13/17 17:38 01/13/17 17:[address] scan as above Assessment & Plan This is a 51 year old male known to have HTN hypothyroidism smoker of 1 ppd hyperlipidemia admitted with incarcerated R inguinal hernia and sigmoid perforation with peritonitis s/p resection lockett's pouch construction and colostomy. for further observation and management in MICU neurologic pain control with hydromorphone IV Q3 PRN. We may escalate if patient has pain respiratory He seems to have COPD and is wheezing. Ipratropium/levalbuterol Q6 hours incentive spirometer and would suggest outpatietn PFT and pulmonary eval for sleep study as well cardiovascular will resume his simvastatin once it is OK with surgery to have PO intake Will resume ASA once he is able to have PO intake enalaprilat 2.5 mg IV Q12 to control BP until his lisinopril can be resumed 20 mg daily obtain Echo in am GI NPO overnight pantoprazole IV Renal 100 ml/hr LR FU Mg and Phosphorus Maintain UO 0.5ml/kg Bw -hr overnight ID vancomycin and zosyn with pharmacy dosing to cover for colonic star related peritonitis blood culture and urine culture given WBC DVT prophylaxis with SCDs in am will start heparin then progress to lovenox depending on Cr level He has a garcia catheter, an A line in the left radial artery and peripheral IVs. Patient is critically ill and will monitor and manage in ICU total CC time 50 minutes. Family updated at bedside,
[2017-01-13] MEDS ORDERED: LACTATED RINGER'S 1000ML 1,000 ML IV SCH (18:15)
[2017-01-13 18:19] LABS: MAGNESIUM 1.3 mg/dl (1.8-2.4); PHOSPHORUS 2.7 mg/dl (2.5-4.9)
--- NOTE | 2017-01-13 18:28 | Surgery Progress Note ---
Surgery Progress Note Date of Service Jan 13, 2017. Subjective + feeling well pt is doing better, less abdominal pain, no nausea, no vomiting, Objective Vital Signs: Date Time Temp Pulse Resp B/P (MAP) Pulse Ox O2 Delivery O2 Flow Rate FiO2 01/13/17 18:15 100 14 93/71 (78) 94 01/13/17 18:00 109 20 102/71 (81) 93 01/13/17 18:00 109 20 102/71 (81) 93 01/13/17 17:45 104 18 108/70 (83) 95 01/13/17 17:30 110 25 105/71 (82) 95 01/13/17 17:15 37.3 112 23 109/68 (82) 94 Nasal Cannula 4.0 01/13/17 16:40 37.4 106 16 115/86 93 Nasal Cannula 4 01/13/17 16:30 37.4 106 14 115/86 93 Nasal Cannula 4 01/13/17 16:20 37.4 104 14 125/81 93 Nasal Cannula 4 01/13/17 16:10 104 14 124/71 93 Nasal Cannula 4 01/13/17 16:00 105 14 133/86 93 Nasal Cannula 4 01/13/17 15:50 96 14 144/84 92 Nasal Cannula 4 01/13/17 15:40 101 14 138/93 96 Mask 10 01/13/17 15:32 37.1 101 14 146/105 95 Mask 10 01/13/17 10:50 98 28 120/80 91 Nasal Cannula 2.0 01/13/17 10:15 92 Room Air 01/13/17 09:41 114 28 132/70 92 Room Air 01/13/17 08:00 36.6 72 20 141/86 96 Room Air General Appearance: WD/WN Head: normocephalic Neck: supple Respiratory/Chest: lungs clear, normal breath sounds Cardiovascular: regular rate, rhythm, no edema, no gallop, no JVD Abdomen: normal bowel sounds, + tenderness Incision(s): intact Extremities: normal range of motion, non-tender, normal inspection Laboratory Results: Results Past 24 Hours Test 01/13/17 08:05 01/13/17 08:30 01/13/17 08:39 01/13/17 10:20 Range/Units White Blood Count 8.08 4.8-10.8 K/uL Red Blood Count 5.43 4.7-6.1 M/uL Hemoglobin 16.1 14.0-18.0 g/dL Hematocrit 50.6 42-52 % Mean Corpuscular Volume 93.2 80-100 fL Mean Corpuscular Hemoglobin 29.7 25-34 pg Mean Corpuscular Hemoglobin Concent 31.8 32-36 g/dl Platelet Count 177 130-400 K/uL Mean Platelet Volume 10.3 7.4-10.4 fL Neutrophils (%) (Auto) 69.0 % Lymphocytes (%) (Auto) 21.9 % Monocytes (%) (Auto) 6.8 % Eosinophils (%) (Auto) 1.2 % Basophils (%) (Auto) 0.2 % Neutrophils # (Auto) 5.57 1.4-6.5 K/uL Lymphocytes # (Auto) 1.77 1.2-3.4 K/uL Monocytes # (Auto) 0.55 0.11-0.59 K/uL Eosinophils # (Auto) 0.10 0-0.5 K/uL Basophils # (Auto) 0.02 0-0.2 K/uL RDW Standard Deviation 50.1 36.4-46.3 fL RDW Coefficient of Variation 14.6 11.5-14.5 % Immature Granulocyte % (Auto) 0.9 % Immature Granulocyte # (Auto) 0.07 0.00-0.02 K/uL Red Blood Cell Morphology Unremarkable Sodium Level 144 136-145 mmol/L Potassium Level 4.4 3.5-5.1 mmol/L Chloride Level 111 98-107 mmol/L Carbon Dioxide Level 24 21-32 mmol/L Anion Gap 9.0 22.0 16-25 mmol/L Blood Urea Nitrogen 21 7-18 mg/dl Creatinine 0.88 0.60-1.40 mg/dl Est Creatinine Clear Calc Drug Dose 118.5 ml/min Estimated GFR () 116.9 Estimated GFR (Non- 100.9 BUN/Creatinine Ratio 23.8 10-20 Random Glucose 124 70-99 mg/dl Calcium Level 8.9 8.5-10.1 mg/dl Total Bilirubin 0.3 0.2-1 mg/dl Direct Bilirubin < 0.1 0-0.2 mg/dl Aspartate Amino Transf (AST/SGOT) 16 15-37 U/L Alanine Aminotransferase (ALT/SGPT) 32 12-78 U/L Alkaline Phosphatase 57 45-117 U/L Total Protein 7.0 6.4-8.2 gm/dl Albumin 4.1 3.4-5.0 gm/dl Lipase 848 73-393 U/L Lactic Acid Level 1.3 0.4-2.0 mmol/L Bedside Hemoglobin 16.7 14.0-18.0 g/dl Bedside Hematocrit 49 42-52 % Bedside Sodium 143 135-144 mEq/L Bedside Potassium 4.6 3.3-5.0 mEq/L Bedside Chloride 106 101-112 mEq/L Bedside Total CO2 21 24-31 mEq/l Bedside Blood Urea Nitrogen 22 7-18 mg/dl Bedside Creatinine 0.8 0.6-1.3 mg/dl Bedside Glucose (other) 125 70-99 mg/dl Bedside Ionized Calcium (Shankar) 1.18 1.12-1.32 mmol/l Urine Color YELLOW Urine Appearance CLEAR CLEAR Urine pH 5.5 4.5-7.5 Urine Specific [place] > 1.045 1.000-1.030 Urine Protein NEG NEG Urine Glucose (UA) NEG NEG Urine Ketones NEG NEG Urine Occult Blood 1+ NEG Urine Nitrite NEG NEG Urine Bilirubin NEG NEG Urine Urobilinogen NEG NEG Urine Leukocyte Esterase NEG NEG Urine WBC (Auto) 5-10 0-5 /hpf Urine RBC (Auto) 0-4 0-4 /hpf Urine Hyaline Casts (Auto) 1-5 0-5 /lpf Urine Epithelial Cells (Auto) 20-30 0-5 /lpf Urine Bacteria (Auto) NEG NEG Test 01/13/17 17:45 Range/Units Prothrombin Time 10.9 9.0-12.0 SECONDS Prothromb Time International Ratio 1.0 0.9-1.1 Activated Partial Thromboplast Time 24.9 21.0-31.0 SECONDS Partial Thromboplastin Ratio 1.0 Phosphorus Level 2.7 2.5-4.9 mg/dl Magnesium Level 1.3 1.8-2.4 mg/dl Microbiology Results 01/13/17 Blood Culture, Received Pending 01/13/17 Urine Culture, Received Pending 01/13/17 Gram Stain, Received Pending 01/13/17 Bacterial Culture, Received Pending Assessment & Plan IMP S/P Exp lap eliu procedure, repair right inguinal hernia,AYDIN X 1, I update information to pt and pt's family members about OR finding and the procedures pt had, they understood, I answered all questions, continue treatment I called ICU attending, repeat labs in am, ID consult, will F/U
[2017-01-13] MEDS ORDERED: PIPERACILL/TAZOBAC IV 4.5 GM in DEXTROSE 5% 100ML 100 ML IV SCH (18:30)
[2017-01-13] MEDS: D5W AND 1/2NSS 1,000 ML IV SCH (18:42)
[2017-01-13] MEDS ORDERED: D5W AND 1/2NSS + 20MEQ KCL 1,000 ML IV SCH (18:45)
[2017-01-13] MEDS: MAGNESIUM SULFATE 1GM / D5W 1 GM in PREMIXED IN D5W 100 ML IV SCH ×4 (18:45→22:19)
--- NOTE | 2017-01-13 20:22 | OPERATIVE REPORT ---
DATE OF OPERATION: 01/13/2017 PREOPERATIVE DIAGNOSIS: Pneumoperitoneum, free air, possible perforated sigmoid colon, incarcerated right inguinal hernia. POSTOPERATIVE DIAGNOSIS: Perforation sigmoid colon, incarcerated right inguinal hernia, peritonitis, severe contamination of the abdominal cavity. PROCEDURE: Exploratory laparotomy, resection of sigmoid colon partially, Greg procedure, colostomy, AYDIN drainage at x1, primary repair right inguinal hernia. SURGEON: Dr. Nacho Whitten. SENIOR MANAGER CREATIVE SERVICES: Kate Mccrary PA-C. ANESTHESIA: General. ESTIMATED BLOOD LOSS: About 30 mL. IV FLUIDS: 5000 mL. URINE OUTPUT: 250 mL. FINDINGS: The OR finding is pneumoperitoneum, perforated sigmoid colon, incarcerated right inguinal hernia, severe peritonitis. COMPLICATIONS: None. INDICATIONS FOR THE PROCEDURE: This is a 51-year-old gentleman who presented to the ED with 1 day history of severe abdominal pain. The patient had a CT scan showing free air in the intra-abdominal cavity and a possible perforated sigmoid colon and the right inguinal hernia. So we decided to take the patient to the OR to do exploratory laparotomy, possible bowel resection, colostomy. I did talk to the patient and patient's about the benefit and risk, alternate procedure. I indicated the risks may include but not limited such as bleeding, infection, abscess, sepsis, multiple organ failure, myocardial infarction, DVT, stroke, injury to bowel, incisional hernia, even . They understand and the patient and the patient's signed informed consent and I answered all questions. DETAILS OF PROCEDURE: We brought the patient to the OR, put the patient on the supine position. The patient received SCD on bilateral legs to prevent DVT. Also, the patient received 3.375 grams Zosyn IV for prophylactic antibiotic and the patient received general anesthesia without difficulty. Also, the patient received Castelan catheter insertion. The abdomen was prepped and draped in routine sterile fashion. After time out, I made a midline incision, opened the fascia, and opened peritoneum under direct vision. Once we get inside the abdomen, there was some free air coming out, also showing significant peritonitis. There is some stool in tra-abdominal cavity and then we found the patient had his right incarcerated hernia. We tried to reduce this hernia from inside the abdominal cavity and we could not pull out the sigmoid colon which was in right inguinal hernia area. At this moment, we decided to make another incision on the right inguinal area and then we enlarged the hernia sac, hernia neck and completely remove the hernia sac. At this moment, we cannot completely reduce the hernia content back to the abdominal cavity. Now, we found the patient had a perforated sigmoid colon. At this moment, because the patient has significant contamination in the abdominal cavity, we decided to do Greg pouch procedure. We used 80 mm SAM staple transection of the colon near the rectal area and then we used another 80 mm SAM staple transection above the perforation of sigmoid colon about 5 cm and then I used the Endo-SAM vascular staple for transection of the mesentery and I put 2-0 Prolene on the remainder distal of the sigmoid colon to later to identify easily and then we decided to create his colostomy. I made a small incision on the left side of the abdominal wall and passed 2 finger from the incision and we pulled out the sigmoid colon towards the colostomy and I used 2-0 Vicryl to fix the colostomy on the colostomy site. Then, we opened the sigmoid colon and removed the sigmoid colon stable and we created the colostomy as the blood circulation is nicely on the sigmoid colon on the colostomy. No active bleeding and then I used normal saline 2 liter mix 2 gram vancomycin completely flushed the abdominal cavity, suctioned out, and I put a one 10 mm AYDIN drain on the pelvic area. At this moment, we moved onto the right-sided inguinal hernia. We removed the hernia sac and then I used 2-0 Prolene to primarily closed the right inguinal hernia. Then, we used a staple to close the skin, also I put one Oscar drainage on the right inguinal incision area, then moved onto the abdominal cavity. Hemostasis was obtained. I closed the abdominal fascial layer by using #1 PDS continuous running and also interrupted and closed the skin by using staple, packing with tyfon iodin interrupted on the skin. Then, we put the dressing on. I put a colostomy bag, so the patient tolerated the procedure well and all the instrument, needle and sponge count were correct x2 at the end of the case. The specimen sent to pathology. The patient transferred to recovery room in stable condition. After the procedure, I did talk to the patient's , patient's parents about the OR finding and procedure we did, they understand. Also, we informed the patient possibility of develops sepsis in the future and they understand. I attest to the content of the Intraoperative Record and any orders documented therein. Any exceptions are noted below. MTDD
--- NOTE | 2017-01-13 20:30 | Pharmacy Progress Note ---
Pharmacy Antibiotic Consult Date of Service: Jan 13, 2017. Pharmacy Dosing Scope Pharmacy is consulted to initiate vancomycin and Zosyn IV dosing therapy, order appropriate labs and adjust drug dose/frequency. Subjective The patient is a 51 year old male admitted on Jan 13, 2017 at 15:51 with incarcerated hernia. Now S/P exp.lap. with colectomy. Objective Height (Feet): 5 Height (Inches): 10.00 Weight (Kilograms): 96.800 Lab Results (24hrs): Test 01/13/17 08:05 01/13/17 08:30 01/13/17 08:39 01/13/17 10:20 White Blood Count 8.08 K/uL (4.8-10.8) Red Blood Count 5.43 M/uL (4.7-6.1) Hemoglobin 16.1 g/dL (14.0-18.0) Hematocrit 50.6 % (42-52) Mean Corpuscular Volume 93.2 fL (80-100) Mean Corpuscular Hemoglobin 29.7 pg (25-34) Mean Corpuscular Hemoglobin Concent 31.8 g/dl (32-36) Platelet Count 177 K/uL (130-400) Mean Platelet Volume 10.3 fL (7.4-10.4) Neutrophils (%) (Auto) 69.0 % Lymphocytes (%) (Auto) 21.9 % Monocytes (%) (Auto) 6.8 % Eosinophils (%) (Auto) 1.2 % Basophils (%) (Auto) 0.2 % Neutrophils # (Auto) 5.57 K/uL (1.4-6.5) Lymphocytes # (Auto) 1.77 K/uL (1.2-3.4) Monocytes # (Auto) 0.55 K/uL (0.11-0.59) Eosinophils # (Auto) 0.10 K/uL (0-0.5) Basophils # (Auto) 0.02 K/uL (0-0.2) RDW Standard Deviation 50.1 fL (36.4-46.3) RDW Coefficient of Variation 14.6 % (11.5-14.5) Immature Granulocyte % (Auto) 0.9 % Immature Granulocyte # (Auto) 0.07 K/uL (0.00-0.02) Red Blood Cell Morphology Unremarkable Sodium Level 144 mmol/L (136-145) Potassium Level 4.4 mmol/L (3.5-5.1) Chloride Level 111 mmol/L (98-107) Carbon Dioxide Level 24 mmol/L (21-32) Anion Gap 9.0 mmol/L (3-11) 22.0 mmol/L (16-25) Blood Urea Nitrogen 21 mg/dl (7-18) Creatinine 0.88 mg/dl (0.60-1.40) Est Creatinine Clear Calc Drug Dose 118.5 ml/min Estimated GFR () 116.9 Estimated GFR (Non- 100.9 BUN/Creatinine Ratio 23.8 (10-20) Random Glucose 124 mg/dl (70-99) Calcium Level 8.9 mg/dl (8.5-10.1) Total Bilirubin 0.3 mg/dl (0.2-1) Direct Bilirubin < 0.1 mg/dl (0-0.2) Aspartate Amino Transf (AST/SGOT) 16 U/L (15-37) Alanine Aminotransferase (ALT/SGPT) 32 U/L (12-78) Alkaline Phosphatase 57 U/L (45-117) Total Protein 7.0 gm/dl (6.4-8.2) Albumin 4.1 gm/dl (3.4-5.0) Lipase 848 U/L (73-393) Lactic Acid Level 1.3 mmol/L (0.4-2.0) Bedside Hemoglobin 16.7 g/dl (14.0-18.0) Bedside Hematocrit 49 % (42-52) Bedside Sodium 143 mEq/L (135-144) Bedside Potassium 4.6 mEq/L (3.3-5.0) Bedside Chloride 106 mEq/L (101-112) Bedside Total CO2 21 mEq/l (24-31) Bedside Blood Urea Nitrogen 22 mg/dl (7-18) Bedside Creatinine 0.8 mg/dl (0.6-1.3) Bedside Glucose (other) 125 mg/dl (70-99) Bedside Ionized Calcium (Shankar) 1.18 mmol/l (1.12-1.32) Urine Color YELLOW Urine Appearance CLEAR (CLEAR) Urine pH 5.5 (4.5-7.5) Urine Specific [place] > 1.045 (1.000-1.030) Urine Protein NEG (NEG) Urine Glucose (UA) NEG (NEG) Urine Ketones NEG (NEG) Urine Occult Blood 1+ (NEG) Urine Nitrite NEG (NEG) Urine Bilirubin NEG (NEG) Urine Urobilinogen NEG (NEG) Urine Leukocyte Esterase NEG (NEG) Urine WBC (Auto) 5-10 /hpf (0-5) Urine RBC (Auto) 0-4 /hpf (0-4) Urine Hyaline Casts (Auto) 1-5 /lpf (0-5) Urine Epithelial Cells (Auto) 20-30 /lpf (0-5) Urine Bacteria (Auto) NEG (NEG) Test 01/13/17 17:45 Prothrombin Time 10.9 SECONDS (9.0-12.0) Prothromb Time International Ratio 1.0 (0.9-1.1) Activated Partial Thromboplast Time 24.9 SECONDS (21.0-31.0) Partial Thromboplastin Ratio 1.0 Phosphorus Level 2.7 mg/dl (2.5-4.9) Magnesium Level 1.3 mg/dl (1.8-2.4) Procalcitonin 28.74 ng/ml (0-0.5) Micro Results: 01/13 blood pending 01/13 peritoneal fluid pending 01/13 cath urine pending Recent Pertinent Medications Item Value Date Time Piperacillin Sod/ 120 ml @ 30 mls/hr 01/14/17 0400 Tazobactam Sod Q8@0400,1200,2000/IV 4.5 gm/Dextrose Vancomycin HCl 276 ml @ 125 mls/hr 01/14/17 0200 1300 mg/Sodium Q8@0200,1000,1800/IV Chloride Vancomycin HCl 548 ml @ 200 mls/hr 01/13/17 1800 2400 mg/Sodium TODAY@1800/IV 01/13/17 1808 Chloride Metronidazole 500 100 ml @ 100 mls/hr 01/13/17 1200 mg/Prmx TODAY@1200/IV 01/13/17 1215 Piperacillin Sod/ 120 ml @ 200 mls/hr 01/13/17 1200 Tazobactam Sod TODAY@1200/IV 01/13/17 1215 4.5 gm/Dextrose Piperacillin Sod/ 4.5 gm 01/13/17 0936 Tazobactam Sod NOW STAT/IV 01/13/17 0936 (Zosyn Iv) Assessment & Plan Loading dose: vancomycin 2400 mg IV X 1 dose (~25 mg/kg) then: vancomycin 1300 mg IV every 8 hours. Goal peak level estimate: between 25-40 mcg/mL. Goal trough level estimate: between 15-20 mcg/mL. Trough has been ordered for: 01/15/17 before 0200 dose. Zosyn 4.5 gm given over 30 minutes in ED, another 4.5 Gm preop, then Zosyn 4.5 Gm extended infusion (infused over 4 hr) every 8 hr. Pharmacy will continue to follow and will adjust dose/frequency as necessary. Thank you
[2017-01-13] MEDS: LEVALBUTEROL 1.25MG/0.5ML NEB INH SCH (20:34)
[2017-01-13] MEDS: IPRATROPIUM BROMIDE NEB SOLN 0.02% 2.5 ML VIAL INH SCH (20:34)
[2017-01-13] MEDS ORDERED: LEVALBUTEROL/IPRATROPIUM NEB INH SCH (21:00)
[2017-01-13] MEDS: PANTOprazole INJ 40 MG in SYRINGE 0 ML IV SCH (21:16)
[2017-01-14] VITALS (36 sets, daily range): BP systolic 69–148; BP diastolic 50–95; PULSE 91–113; TEMP 36.6–37.3; O2SAT 86–95
[2017-01-14] MEDS: HYDROmorphone INJ 2 MG/ML SYR/VIAL IV PRN ×5 (00:04→20:06)
[2017-01-14] MEDS: VANCOMYCIN INJ 1,300 MG in SODIUM CHLORIDE 0.9% 250ML 250 ML IV SCH ×3 (01:44→17:33)
[2017-01-14] MEDS: HYDROmorphone INJ 1 MG/ML SYR IV PRN ×3 (01:45→09:17)
[2017-01-14] MEDS: IPRATROPIUM BROMIDE NEB SOLN 0.02% 2.5 ML VIAL INH SCH ×4 (02:07→19:25)
[2017-01-14] MEDS: LEVALBUTEROL 1.25MG/0.5ML NEB INH SCH ×4 (02:07→19:25)
[2017-01-14] MEDS ORDERED: NURSING VERBAL MED ORDER ONE ×2 (03:00→20:00)
[2017-01-14] MEDS: PIPERACILL/TAZOBAC IV 4.5 GM in DEXTROSE 5% 100ML 100 ML IV SCH ×3 (03:41→20:04)
[2017-01-14] MEDS: FENTANYL CITRATE INJ 50 MCG/1 ML 2 ML VIAL IV PRN ×7 (03:42→23:02)
[2017-01-14 05:55] LABS: BASO % 0.1 %; BASO ABS # 0.01 K/uL (0-0.2); COMPLETE YES; HEMATOCRIT 43.1 % (42-52); IG% 0.7 %; LYMPH % 7.4 %; LYMPH ABS # 0.78 K/uL (1.2-3.4); MEAN CELL VOLUME 93.5 fL (80-100); MEAN CORPUSCULAR HEMOGLOBIN 29.9 pg (25-34); MEAN PLATELET VOLUME 10.2 fL (7.4-10.4); MONO % 8.4 %; NEUT % 83.4 %; PLATELET COUNT 135 K/uL (130-400); RED BLOOD COUNT 4.61 M/uL (4.7-6.1); WHITE BLOOD COUNT 10.59 K/uL (4.8-10.8)
[2017-01-14] MEDS: D5W AND 1/2NSS 1,000 ML IV SCH ×2 (06:16→07:31)
[2017-01-14 06:32] LABS: BUN/CREATININE RATIO 18.2 (10-20); CALCIUM 7.8 mg/dl (8.5-10.1); CREATININE 0.84 mg/dl (0.60-1.40); POTASSIUM 4.4 mmol/L (3.5-5.1)
[2017-01-14 06:38] LABS: ALB/GLOB RATIO 1.1 (0.9-2)
--- NOTE | 2017-01-14 07:40 | DIAGNOSTIC IMAGING REPORT ---
CHEST ONE VIEW PORTABLE HISTORY: post op wheezing ? aspiration COMPARISON: Chest 10/04/2013. FINDINGS: Low lung volumes. Nasogastric tube terminates in the stomach. No pneumothorax. The heart is mildly enlarged. Mild central pulmonary vascular congestion without overt edema. Bibasilar densities. IMPRESSION: 1. Mild cardiomegaly with mild pulmonary vascular congestion. 2. Bibasilar densities, left greater than right. This could represent atelectasis or pneumonia. Electronically signed by: Uday Gracia M.D. 01/14/2017 7:39 AM Dictated Date/Time: 01/14/2017 7:37 AM
[2017-01-14] MEDS ORDERED: HEPARIN SOD 5000 UNIT/0.5 ML CARP SQ SCH (08:00)
[2017-01-14] MEDS: LEVOTHYROXINE SODIUM INJ 100 MCG in SYRINGE 0 ML IV SCH (09:03)
[2017-01-14] MEDS: ENALAPRILAT IV 2.5 MG in DEXTROSE 5% 25ML 25 ML IV SCH ×2 (09:04→21:04)
[2017-01-14] MEDS: PANTOprazole INJ 40 MG in SYRINGE 0 ML IV SCH ×2 (09:07→21:04)
--- NOTE | 2017-01-14 11:32 | Surgery Progress Note ---
Surgery Progress Note Date of Service Jan 14, 2017. Subjective Post OP Day: 1 + feeling well pt is doing better, no nausea, no vomiting, good urine output, Objective Vital Signs: Date Time Temp Pulse Resp B/P (MAP) Pulse Ox O2 Delivery O2 Flow Rate FiO2 01/14/17 08:00 91 Nasal Cannula 3.0 01/14/17 08:00 37.2 100 24 109/72 (84) 91 3.0 01/14/17 07:32 99 14 93 Nasal Cannula 3.0 01/14/17 06:04 99 31 90 105/91 01/14/17 06:02 96 25 111/72 90 103/90 01/14/17 06:02 96 25 103/90 (94) 90 01/14/17 05:02 91 19 99/58 92 78/66 01/14/17 05:02 91 19 78/66 (70) 92 01/14/17 04:02 92 16 101/68 92 81/68 01/14/17 04:02 36.6 92 16 101/68 92 81/68 01/14/17 04:02 36.6 92 16 81/68 (72) 92 Nasal Cannula 3.0 01/14/17 04:02 92 16 81/68 (72) 92 01/14/17 04:00 93 Nasal Cannula 3.0 01/14/17 03:02 96 17 109/67 92 74/63 01/14/17 03:02 96 17 74/63 (67) 92 01/14/17 02:07 95 14 92 Nasal Cannula 3.0 01/14/17 02:02 91 18 84/72 (76) 93 01/14/17 02:02 91 18 95/66 93 84/72 01/14/17 01:02 92 22 116/82 94 97/79 01/14/17 01:02 92 22 97/79 (85) 94 01/14/17 00:02 37.0 94 22 85/69 (74) 93 Nasal Cannula 3.0 01/14/17 00:02 37.0 94 22 104/70 93 85/69 01/13/17 23:59 93 Nasal Cannula 3.0 01/13/17 23:04 99 27 86/65 (72) 93 01/13/17 23:04 99 27 99/63 93 86/65 01/13/17 22:30 97 29 90/76 (81) 93 01/13/17 22:02 95 15 76/63 (67) 92 3.0 01/13/17 22:00 94 13 78/64 (69) 92 Nasal Cannula 3.0 01/13/17 22:00 94 13 78/64 (69) 92 01/13/17 22:00 94 13 96/68 92 78/64 01/13/17 21:30 95 15 72/60 (64) 92 3.0 01/13/17 21:02 93 14 83/70 (74) 93 01/13/17 21:02 93 14 102/67 93 83/70 01/13/17 21:00 95 15 84/70 (75) 93 3.0 01/13/17 20:35 96 16 94 Nasal Cannula 3.0 01/13/17 20:30 103 20 108/65 (79) 93 01/13/17 20:15 96 18 90/60 (70) 94 01/13/17 20:15 96 18 90/60 (70) 94 01/13/17 20:15 36.6 96 18 98/66 94 90/60 01/13/17 20:00 36.6 100 22 93/76 (82) 94 01/13/17 20:00 96 Nasal Cannula 3.0 01/13/17 20:00 36.6 100 22 93/76 (82) 94 3.0 01/13/17 19:30 109 23 97/82 (87) 94 01/13/17 19:30 109 23 97/82 (87) 94 01/13/17 19:30 109 23 97/82 (87) 94 4.0 01/13/17 19:02 109 23 122/73 95 112/74 01/13/17 19:02 109 23 112/74 (87) 95 01/13/17 19:00 107 26 111/72 (85) 96 01/13/17 18:30 109 23 108/68 (81) 95 01/13/17 18:15 100 14 93/71 (78) 94 01/13/17 18:00 109 20 102/71 (81) 93 01/13/17 18:00 109 20 102/71 (81) 93 01/13/17 17:45 104 18 108/70 (83) 95 01/13/17 17:30 110 25 105/71 (82) 95 01/13/17 17:15 37.3 112 23 109/68 (82) 94 Nasal Cannula 4.0 01/13/17 16:40 37.4 106 16 115/86 93 Nasal Cannula 4 01/13/17 16:30 37.4 106 14 115/86 93 Nasal Cannula 4 01/13/17 16:20 37.4 104 14 125/81 93 Nasal Cannula 4 01/13/17 16:10 104 14 124/71 93 Nasal Cannula 4 01/13/17 16:00 105 14 133/86 93 Nasal Cannula 4 01/13/17 15:50 96 14 144/84 92 Nasal Cannula 4 01/13/17 15:40 101 14 138/93 96 Mask 10 01/13/17 15:32 37.1 101 14 146/105 95 Mask 10 General Appearance: WD/WN, + mild distress Head: normocephalic Neck: supple, no JVD Respiratory/Chest: chest non-tender, lungs clear, normal breath sounds Cardiovascular: regular rate, rhythm, no edema, no gallop, no JVD Abdomen: normal bowel sounds, non distended, soft, + tenderness Incision(s): clean, dry, intact Extremities: normal range of motion, non-tender, normal inspection Laboratory Results: Results Past 24 Hours Test 01/13/17 17:45 01/14/17 00:06 01/14/17 05:40 01/14/17 11:04 Range/Units Prothrombin Time 10.9 9.0-12.0 SECONDS Prothromb Time International Ratio 1.0 0.9-1.1 Activated Partial Thromboplast Time 24.9 21.0-31.0 SECONDS Partial Thromboplastin Ratio 1.0 Phosphorus Level 2.7 2.5-4.9 mg/dl Magnesium Level 1.3 1.8-2.4 mg/dl Procalcitonin 28.74 0-0.5 ng/ml Bedside Glucose 155 70-99 mg/dl White Blood Count 10.59 4.8-10.8 K/uL Red Blood Count 4.61 4.7-6.1 M/uL Hemoglobin 13.8 14.0-18.0 g/dL Hematocrit 43.1 42-52 % Mean Corpuscular Volume 93.5 80-100 fL Mean Corpuscular Hemoglobin 29.9 25-34 pg Mean Corpuscular Hemoglobin Concent 32.0 32-36 g/dl Platelet Count 135 130-400 K/uL Mean Platelet Volume 10.2 7.4-10.4 fL Neutrophils (%) (Auto) 83.4 % Lymphocytes (%) (Auto) 7.4 % Monocytes (%) (Auto) 8.4 % Eosinophils (%) (Auto) 0.0 % Basophils (%) (Auto) 0.1 % Neutrophils # (Auto) 8.84 1.4-6.5 K/uL Lymphocytes # (Auto) 0.78 1.2-3.4 K/uL Monocytes # (Auto) 0.89 0.11-0.59 K/uL Eosinophils # (Auto) 0.00 0-0.5 K/uL Basophils # (Auto) 0.01 0-0.2 K/uL RDW Standard Deviation 52.8 36.4-46.3 fL RDW Coefficient of Variation 15.3 11.5-14.5 % Immature Granulocyte % (Auto) 0.7 % Immature Granulocyte # (Auto) 0.07 0.00-0.02 K/uL Sodium Level 140 136-145 mmol/L Potassium Level 4.4 3.5-5.1 mmol/L Chloride Level 108 98-107 mmol/L Carbon Dioxide Level 23 21-32 mmol/L Anion Gap 9.0 3-11 mmol/L Blood Urea Nitrogen 15 7-18 mg/dl Creatinine 0.84 0.60-1.40 mg/dl Est Creatinine Clear Calc Drug Dose 124.2 ml/min Estimated GFR () 119.2 Estimated GFR (Non- 102.8 BUN/Creatinine Ratio 18.2 10-20 Random Glucose 152 70-99 mg/dl Calcium Level 7.8 8.5-10.1 mg/dl Total Bilirubin 0.6 0.2-1 mg/dl Aspartate Amino Transf (AST/SGOT) 15 15-37 U/L Alanine Aminotransferase (ALT/SGPT) 29 12-78 U/L Alkaline Phosphatase 31 45-117 U/L Total Protein 5.5 6.4-8.2 gm/dl Albumin 2.9 3.4-5.0 gm/dl Globulin 2.6 2.5-4.0 gm/dl Albumin/Globulin Ratio 1.1 0.9-2 Microbiology Results 01/13/17 Blood Culture, Received Pending Assessment & Plan IMP S/P Exp lap eliu procedure, repair right inguinal hernia,AYDIN X 1, I update information to pt and pt's family members about OR finding and the procedures pt had, they understood, I answered all questions, continue treatment I called ICU attending, repeat labs in am, ID consult, will F/U 01/14/2017 AYDIN minimal pt is doing better, continue treatment, will F/U IMP S/P Exp lap eliu procedure, repair right inguinal hernia,AYDIN X 1, I update information to pt and pt's family members about OR finding and the procedures pt had, they understood, I answered all questions, continue treatment I called ICU attending, repeat labs in am, ID consult, will F/U
[2017-01-14 12:13] LABS: MAGNESIUM 2.1 mg/dl (1.8-2.4); PHOSPHORUS 2.4 mg/dl (2.5-4.9)
[2017-01-14] MEDS ORDERED: ENOXAPARIN 40 MG/0.4 ML SYR SQ SCH (14:00)
[2017-01-14] MEDS ORDERED: SODIUM PHOSPHATE 3 MMOL/1 ML INFUSION IV STA (14:02)
[2017-01-14] MEDS ORDERED: SODIUM PHOSPHATE INJ 21 MMOL in SODIUM CHLORIDE 0.9% 500ML 500 ML IV SCH (14:15)
--- NOTE | 2017-01-14 14:15 | Critical Care Progress Note ---
Critical Care Progress Note Date of Service Jan 14, 2017. ICU Day ICU Day Number: [address] Del Valle Subjective 51 yo male known to have HTn, hypothyroidism and hyperlipidemia as well as bilateral inguinal hernia s/p surgical correction x 3 /site He was admitted yesterday with incarcerated inguinal hernia on the right with perforate viscus likely sigmoidcolon. Dr Whitten took him to the OR and performed partial colectomy with heartmans pouch and colostomy construction. Patient has been stable in ICU and is on IVF with antiobiotics due to peritonitis. His says his pain is slightly worse than yesterday. The colostomy bag has minimal clear fluid in it. Spoke to surgical physician Dr Whitten and he would likely to keep him NPO one more day since colostomy is still not fully functional Objective General Appearance: mild distress Head: normocephalic, atraumatic Eyes: PERRLA, no discharge, sclerae normal ENT: normal ear exam, poor dentition Neck: normal range of motion, supple Respiratory: wheezing cleared Cardiovasular: regular rate/rhythm, normal S1S2, no M/G/R Abdomen: other (right paraambilical and inguinal dressing with colostomy in the LLQ, clean and pink. with minimal clear fluid in the bag. There is no oozing or bleeding. He has direct tenderness in the RLQ and epigastic areas less so in the LLQ) Genitourinary - Male: external genitalia normal Extremities: no edema clubbing or cyanosis Neuro: alert, oriented x 3, normal motor exam Psychiatric: normal affect Current SOFA Score SOFA Score Response (Comments) Value Platelets (x10) < 150 1 Bilirubin (mg/dL) < 1.2 0 Renny Coma Score 15 0 Level of Hypotension No Hypotension 0 Creatinine (mg/dL) < 1.2 0 Total 1 Previous SOFA Scores 0 Assessment & Plan Assessment & Plan This is a 51 year old male known to have HTN hypothyroidism smoker of 1 ppd hyperlipidemia admitted with incarcerated R inguinal hernia and sigmoid perforation with peritonitis s/p resection lockett's pouch construction and colostomy. for further observation and management in MICU neurologic pain control with hydromorphone escalate to 1.5 mg IV Q3 PRN. respiratory He seems to have COPD his wheezing responded to nebulizers Ipratropium/levalbuterol Q6 hours incentive spirometer and would suggest outpatietn PFT and pulmonary eval for sleep study as well cardiovascular will resume his simvastatin once it is OK with surgery to have PO intake Will resume ASA once he is able to have PO intake enalaprilat 2.5 mg IV Q12 to control BP until his lisinopril can be resumed 20 mg daily obtain Echo in am GI NPO one more day pantoprazole IV Renal 125 ml NS His U O is 0.49 ml/Kg BW-hr last 24 hour FU Mg and Phosphorus replete Phosphorus today ID vancomycin and zosyn with pharmacy dosing to cover for colonic star related peritonitis blood culture and urine culture given WBC DVT prophylaxis lovenox SQ Q am He has a garcia catheter, an A line removed Patient is critically ill and will monitor and manage in ICU total CC time 45 minutes. Family updated at bedside, Consults & Procedures Consultants: surgery Procedures: inguinal hernia repair and colostomy a line insertion Data Medications: Current Inpatient Medications Medications (Trade) Dose Ordered Sig/Luis Fernando Route Start Time Stop Time Status Last Admin Dose Admin Ioversol (Optiray 320) 100 ml UD PRN IV 01/13/17 08:15 01/17/17 08:14 Potassium Chloride/Dextrose/ Sod Cl 1,000 ml @ 150 mls/hr Q6H40M IV 01/13/17 18:45 02/12/17 15:33 Future Hold Ondansetron HCl (Zofran Inj) 4 mg Q4H PRN IV 01/13/17 15:45 02/12/17 15:44 Acetaminophen (Tylenol Tab) 650 mg Q6H PRN PO 01/13/17 15:45 02/12/17 15:44 Hydromorphone HCl (Dilaudid Inj) 1 mg Q3H PRN IV 01/13/17 15:45 01/27/17 15:44 01/14/17 09:17 1 MG Hydromorphone HCl (Dilaudid Inj) 1.2 mg Q3H PRN IV 01/13/17 15:45 01/27/17 15:44 01/14/17 11:23 1.2 MG Vancomycin HCl 1300 mg/Sodium Chloride 276 ml @ 125 mls/hr Q8@0200,1000,1800 IV 01/14/17 02:00 01/23/17 17:59 01/14/17 09:09 125 MLS/HR Pantoprazole Sodium 40 mg/ Syringe 10 ml @ 5 mls/min DAILY@09,21 IV 01/13/17 21:00 02/12/17 20:59 01/14/17 09:07 5 MLS/MIN Levothyroxine Sodium 100 mcg/ Syringe 5 ml @ 2 mls/min DAILY@09 IV 01/14/17 09:00 02/13/17 08:59 01/14/17 09:03 2 MLS/MIN Enalaprilat 2.5 mg/Dextrose 27 ml @ 100 mls/hr Q12 IV 01/14/17 09:00 02/13/17 08:59 01/14/17 09:04 100 MLS/HR Piperacillin Sod/ Tazobactam Sod (Consult) 1 ea UD PRN N/A 01/13/17 18:10 02/12/17 18:09 Vancomycin HCl (Consult) 1 ea UD PRN N/A 01/13/17 18:09 02/12/17 18:08 Ipratropium [place] (Atrovent 0.02% 0.5MG/2.5ML Neb) 0.5 mg Q6R INH 01/13/17 21:00 02/12/17 20:59 01/14/17 07:30 0.5 MG Levalbuterol (Xopenex 1.25MG/ 0.5ML Neb) 1.25 mg Q6R INH 01/13/17 21:00 02/12/17 20:59 01/14/17 07:30 1.25 MG Piperacillin Sod/ Tazobactam Sod 4.5 gm/Dextrose 120 ml @ 30 mls/hr Q8@0400,1200,2000 IV 01/14/17 04:00 01/23/17 19:59 01/14/17 11:26 30 MLS/HR Fentanyl Citrate (Fentanyl Inj) 50 mcg Q2H PRN IV 01/14/17 03:15 01/28/17 03:14 01/14/17 13:29 50 MCG Enoxaparin Sodium (Lovenox Inj) 40 mg QAM SQ 01/15/17 09:00 02/14/17 08:59 Enoxaparin Sodium (Lovenox Inj) 40 mg TODAY@1400 SQ 01/14/17 14:00 01/14/17 18:00 01/14/17 13:04 40 MG I & O: 24-Hour Column 01/15/17 08:00 Intake Total 1070 ml Output Total 725 ml Balance 345 ml Vital Signs: Date Time Temp Pulse Resp B/P (MAP) Pulse Ox O2 Delivery O2 Flow Rate FiO2 01/14/17 12:00 91 20 92 01/14/17 12:00 37.1 100 24 99/69 (79) 92 2.0 01/14/17 11:58 92 Nasal Cannula 2.0 01/14/17 11:56 37.1 98 24 99/69 (79) 92 01/14/17 11:01 92 22 97/56 (70) 91 01/14/17 11:00 93 18 91 01/14/17 10:46 100/67 (78) 01/14/17 10:39 110 30 126/87 (100) 01/14/17 10:35 96 24 93/53 (66) 91 01/14/17 10:02 96 19 78/51 (60) 91 01/14/17 10:00 98 19 91 01/14/17 09:02 105 27 69/50 (56) 92 01/14/17 09:00 103 29 93/78 (83) 91 01/14/17 08:00 91 Nasal Cannula 3.0 01/14/17 08:00 37.2 100 24 109/72 (84) 91 3.0 01/14/17 07:32 99 14 93 Nasal Cannula 3.0 01/14/17 06:04 99 31 90 105/91 01/14/17 06:02 96 25 111/72 90 103/90 01/14/17 06:02 96 25 103/90 (94) 90 01/14/17 05:02 91 19 99/58 92 78/66 01/14/17 05:02 91 19 78/66 (70) 92 01/14/17 04:02 92 16 101/68 92 81/68 01/14/17 04:02 36.6 92 16 101/68 92 81/68 01/14/17 04:02 36.6 92 16 81/68 (72) 92 Nasal Cannula 3.0 01/14/17 04:02 92 16 81/68 (72) 92 01/14/17 04:00 93 Nasal Cannula 3.0 01/14/17 03:02 96 17 109/67 92 74/63 01/14/17 03:02 96 17 74/63 (67) 92 01/14/17 02:07 95 14 92 Nasal Cannula 3.0 01/14/17 02:02 91 18 84/72 (76) 93 01/14/17 02:02 91 18 95/66 93 84/72 01/14/17 01:02 92 22 116/82 94 97/79 01/14/17 01:02 92 22 97/79 (85) 94 01/14/17 00:02 37.0 94 22 85/69 (74) 93 Nasal Cannula 3.0 01/14/17 00:02 37.0 94 22 104/70 93 85/69 01/13/17 23:59 93 Nasal Cannula 3.0 01/13/17 23:04 99 27 86/65 (72) 93 01/13/17 23:04 99 27 99/63 93 86/65 01/13/17 22:30 97 29 90/76 (81) 93 01/13/17 22:02 95 15 76/63 (67) 92 3.0 01/13/17 22:00 94 13 78/64 (69) 92 Nasal Cannula 3.0 01/13/17 22:00 94 13 78/64 (69) 92 01/13/17 22:00 94 13 96/68 92 78/64 01/13/17 21:30 95 15 72/60 (64) 92 3.0 01/13/17 21:02 93 14 83/70 (74) 93 01/13/17 21:02 93 14 102/67 93 83/70 01/13/17 21:00 95 15 84/70 (75) 93 3.0 01/13/17 20:35 96 16 94 Nasal Cannula 3.0 01/13/17 20:30 103 20 108/65 (79) 93 01/13/17 20:15 96 18 90/60 (70) 94 01/13/17 20:15 96 18 90/60 (70) 94 01/13/17 20:15 36.6 96 18 98/66 94 90/60 01/13/17 20:00 36.6 100 22 93/76 (82) 94 01/13/17 20:00 96 Nasal Cannula 3.0 01/13/17 20:00 36.6 100 22 93/76 (82) 94 3.0 01/13/17 19:30 109 23 97/82 (87) 94 01/13/17 19:30 109 23 97/82 (87) 94 01/13/17 19:30 109 23 97/82 (87) 94 4.0 01/13/17 19:02 109 23 122/73 95 112/74 01/13/17 19:02 109 23 112/74 (87) 95 01/13/17 19:00 107 26 111/72 (85) 96 01/13/17 18:30 109 23 108/68 (81) 95 01/13/17 18:15 100 14 93/71 (78) 94 01/13/17 18:00 109 20 102/71 (81) 93 01/13/17 18:00 109 20 102/71 (81) 93 01/13/17 17:45 104 18 108/70 (83) 95 01/13/17 17:30 110 25 105/71 (82) 95 01/13/17 17:15 37.3 112 23 109/68 (82) 94 Nasal Cannula 4.0 01/13/17 16:40 37.4 106 16 115/86 93 Nasal Cannula 4 01/13/17 16:30 37.4 106 14 115/86 93 Nasal Cannula 4 01/13/17 16:20 37.4 104 14 125/81 93 Nasal Cannula 4 01/13/17 16:10 104 14 124/71 93 Nasal Cannula 4 01/13/17 16:00 105 14 133/86 93 Nasal Cannula 4 01/13/17 15:50 96 14 144/84 92 Nasal Cannula 4 01/13/17 15:40 101 14 138/93 96 Mask 10 01/13/17 15:32 37.1 101 14 146/105 95 Mask 10 Laboratory Results: Last 24 Hours Test 01/13/17 17:45 01/14/17 00:06 01/14/17 05:40 01/14/17 11:31 Prothrombin Time 10.9 SECONDS Prothromb Time International Ratio 1.0 Activated Partial Thromboplast Time 24.9 SECONDS Partial Thromboplastin Ratio 1.0 Phosphorus Level 2.7 mg/dl 2.4 mg/dl Magnesium Level 1.3 mg/dl 2.1 mg/dl Procalcitonin 28.74 ng/ml Bedside Glucose 155 mg/dl 117 mg/dl White Blood Count 10.59 K/uL Red Blood Count 4.61 M/uL Hemoglobin 13.8 g/dL Hematocrit 43.1 % Mean Corpuscular Volume 93.5 fL Mean Corpuscular Hemoglobin 29.9 pg Mean Corpuscular Hemoglobin Concent 32.0 g/dl Platelet Count 135 K/uL Mean Platelet Volume 10.2 fL Neutrophils (%) (Auto) 83.4 % Lymphocytes (%) (Auto) 7.4 % Monocytes (%) (Auto) 8.4 % Eosinophils (%) (Auto) 0.0 % Basophils (%) (Auto) 0.1 % Neutrophils # (Auto) 8.84 K/uL Lymphocytes # (Auto) 0.78 K/uL Monocytes # (Auto) 0.89 K/uL Eosinophils # (Auto) 0.00 K/uL Basophils # (Auto) 0.01 K/uL RDW Standard Deviation 52.8 fL RDW Coefficient of Variation 15.3 % Immature Granulocyte % (Auto) 0.7 % Immature Granulocyte # (Auto) 0.07 K/uL Sodium Level 140 mmol/L Potassium Level 4.4 mmol/L Chloride Level 108 mmol/L Carbon Dioxide Level 23 mmol/L Anion Gap 9.0 mmol/L Blood Urea Nitrogen 15 mg/dl Creatinine 0.84 mg/dl Est Creatinine Clear Calc Drug Dose 124.2 ml/min Estimated GFR () 119.2 Estimated GFR (Non- 102.8 BUN/Creatinine Ratio 18.2 Random Glucose 152 mg/dl Calcium Level 7.8 mg/dl Total Bilirubin 0.6 mg/dl Aspartate Amino Transf (AST/SGOT) 15 U/L Alanine Aminotransferase (ALT/SGPT) 29 U/L Alkaline Phosphatase 31 U/L Total Protein 5.5 gm/dl Albumin 2.9 gm/dl Globulin 2.6 gm/dl Albumin/Globulin Ratio 1.1
[2017-01-14] MEDS: D5W AND NSS 1,000 ML IV SCH (14:35)
[2017-01-14] MEDS ORDERED: HYDROmorphone INJ 2 MG/ML SYR/VIAL IV PRN (15:45)
[2017-01-15] VITALS (50 sets, daily range): BP systolic 86–136; BP diastolic 60–84; PULSE 87–112; TEMP 36.7–37.2; O2SAT 88–95
[2017-01-15] MEDS: HYDROmorphone INJ 2 MG/ML SYR/VIAL IV PRN ×7 (00:03→22:39)
[2017-01-15] MEDS ORDERED: VANCOMYCIN TROUGH SCH (01:30)
[2017-01-15 01:33] LABS: HEMATOCRIT 36.6 % (42-52); MEAN CELL VOLUME 93.1 fL (80-100); MEAN CORPUSCULAR HEMOGLOBIN 30.5 pg (25-34); MEAN CORPUSCULAR HGB CONC 32.8 g/dl (32-36); MEAN PLATELET VOLUME 9.8 fL (7.4-10.4); PLATELET COUNT 121 K/uL (130-400); RED BLOOD COUNT 3.93 M/uL (4.7-6.1); WHITE BLOOD COUNT 12.06 K/uL (4.8-10.8)
[2017-01-15 01:55] LABS: BUN/CREATININE RATIO 14.9 (10-20); CALCIUM 7.8 mg/dl (8.5-10.1); CREATININE 0.94 mg/dl (0.60-1.40); POTASSIUM 3.8 mmol/L (3.5-5.1)
[2017-01-15] MEDS: IPRATROPIUM BROMIDE NEB SOLN 0.02% 2.5 ML VIAL INH SCH ×4 (02:18→19:32)
[2017-01-15] MEDS: LEVALBUTEROL 1.25MG/0.5ML NEB INH SCH ×4 (02:18→19:32)
[2017-01-15] MEDS: VANCOMYCIN INJ 1,300 MG in SODIUM CHLORIDE 0.9% 250ML 250 ML IV SCH (02:36)
[2017-01-15] MEDS: FENTANYL CITRATE INJ 50 MCG/1 ML 2 ML VIAL IV PRN ×6 (02:37→20:27)
[2017-01-15] MEDS: PIPERACILL/TAZOBAC IV 4.5 GM in DEXTROSE 5% 100ML 100 ML IV SCH ×3 (04:07→20:14)
--- NOTE | 2017-01-15 05:30 | Medical Consult ---
Consultation Date of Consultation: Jan 14, 2017. Attending Physician: Nacho Whitten MD Reason for Consultation: Sepsis History of Present Illness 51-year-old male with long history of problems with inguinal hernias, status post multiple repair surgeries in the past, who was dealing with known right inguinal hernia, who presented to the hospital with 1 day history of progressively worsening excruciating right lower quadrant abdominal pain. In the emergency department, CT scan was obtained which showed evidence of incarcerated hernia as well as probable perforation of the sigmoid colon with free air in the peritoneal cavity. He underwent emergency surgery with the above findings were confirmed, the patient underwent repair of incarcerated hernia, partial colectomy, and creation of colostomy. He has been started on broad-spectrum antibiotics with vancomycin and Zosyn. patient has been reasonably hemodynamically stable postoperatively, and has had no fever. Cultures thus far growing gram-negative bacilli and gram-positive cocci. Abdominal pain currently rated 5/10 in intensity. Past Medical/Surgical History Medical Problems: (1) Incarcerated hernia Status: Acute (2) Intra-abdominal free air of unknown etiology Status: Acute (3) Peritonitis Status: Acute Medical Problems: (1) Aortic aneurysm (2) Perforation of colon Family History Myocardial infarction at age less than 60 Social History Smoking Status: Current Every Day Smoker Marital Status: single Occupation Status: employed Allergies Coded Allergies: No Known Allergies (Unverified , 10/31/06) Current Inpatient Medications Current Inpatient Medications Medications (Trade) Dose Ordered Sig/Luis Fernando Route Start Time Stop Time Status Last Admin Dose Admin Ioversol (Optiray 320) 100 ml UD PRN IV 01/13/17 08:15 01/17/17 08:14 Ondansetron HCl (Zofran Inj) 4 mg Q4H PRN IV 01/13/17 15:45 02/12/17 15:44 Acetaminophen (Tylenol Tab) 650 mg Q6H PRN PO 01/13/17 15:45 02/12/17 15:44 Vancomycin HCl 1300 mg/Sodium Chloride 276 ml @ 125 mls/hr Q8@0200,1000,1800 IV 01/14/17 02:00 01/23/17 17:59 01/15/17 02:36 125 MLS/HR Pantoprazole Sodium 40 mg/ Syringe 10 ml @ 5 mls/min DAILY@ IV 01/13/17 21:00 02/12/17 20:59 01/14/17 21:04 5 MLS/MIN Levothyroxine Sodium 100 mcg/ Syringe 5 ml @ 2 mls/min DAILY@09 IV 01/14/17 09:00 02/13/17 08:59 01/14/17 09:03 2 MLS/MIN Enalaprilat 2.5 mg/Dextrose 27 ml @ 100 mls/hr Q12 IV 01/14/17 09:00 02/13/17 08:59 01/14/17 21:04 100 MLS/HR Piperacillin Sod/ Tazobactam Sod (Consult) 1 ea UD PRN N/A 01/13/17 18:10 02/12/17 18:09 Vancomycin HCl (Consult) 1 ea UD PRN N/A 01/13/17 18:09 02/12/17 18:08 Ipratropium [place] (Atrovent 0.02% 0.5MG/2.5ML Neb) 0.5 mg Q6R INH 01/13/17 21:00 02/12/17 20:59 01/15/17 02:18 0.5 MG Levalbuterol (Xopenex 1.25MG/ 0.5ML Neb) 1.25 mg Q6R INH 01/13/17 21:00 02/12/17 20:59 01/15/17 02:18 1.25 MG Piperacillin Sod/ Tazobactam Sod 4.5 gm/Dextrose 120 ml @ 30 mls/hr Q8@0400,1200,2000 IV 01/14/17 04:00 01/23/17 19:59 01/15/17 04:07 30 MLS/HR Enoxaparin Sodium (Lovenox Inj) 40 mg QAM SQ 01/15/17 09:00 02/14/17 08:59 Dextrose/Sodium Chloride 1,000 ml @ 125 mls/hr Q8H IV 01/14/17 14:15 01/15/17 14:14 01/14/17 14:35 125 MLS/HR Hydromorphone HCl (Dilaudid Inj) 1.5 mg Q3H PRN IV 01/14/17 15:45 01/27/17 15:44 Hydromorphone HCl (Dilaudid Inj) 2 mg Q3H PRN IV 01/14/17 14:30 01/28/17 14:29 01/15/17 04:07 2 MG Fentanyl Citrate (Fentanyl Inj) 75 mcg Q2H PRN IV 01/14/17 20:15 01/28/17 20:14 01/15/17 02:37 75 MCG Review of Systems Constitutional: No fever Eyes: No problem reported ENT: No problem reported Respiratory: No problem reported Abdomen: + pain, + nausea Musculoskeletal: No problem reported Genitourinary - Male: No problem reported Neurologic: No problem reported Psychiatric: No problem reported Endocrine: No problem reported Hematologic / Lymphatic: No problem reported Integumentary: No problem reported Allergic / Immunologic: No problem reported Physical Exam Date Time Temp Pulse Resp B/P (MAP) Pulse Ox O2 Delivery O2 Flow Rate FiO2 01/15/17 04:01 37.0 105 18 113/68 (83) 92 1.0 01/15/17 04:00 95 Nasal Cannula 1.0 01/15/17 03:02 108 18 110/64 (79) 92 1.0 01/15/17 02:18 97 16 89 Room Air 01/15/17 02:02 99 18 113/60 (77) 89 2.0 01/15/17 01:02 103 17 111/65 (80) 88 2.0 01/15/17 00:01 37.1 112 30 124/74 (91) 92 2.0 01/14/17 23:59 95 Nasal Cannula 1.0 01/14/17 23:02 100 18 97/57 (70) 92 2.0 01/14/17 22:02 111 23 107/57 (74) 91 1.0 01/14/17 21:02 111 17 97/68 (78) 90 01/14/17 20:02 37.3 113 23 120/79 (93) 91 1.0 01/14/17 20:00 93 Nasal Cannula 1.0 01/14/17 19:45 112 33 148/95 (112) 86 01/14/17 19:26 100 16 93 Nasal Cannula 1.0 01/14/17 18:00 106 22 113/75 (88) 94 2.0 01/14/17 16:00 36.7 108 24 122/79 (93) 91 2.0 01/14/17 15:28 104 14 92 Nasal Cannula 2.0 01/14/17 15:28 91 Nasal Cannula 2.0 01/14/17 14:00 104 24 124/76 (92) 92 2.0 01/14/17 12:00 91 20 92 01/14/17 12:00 37.1 100 24 99/69 (79) 92 2.0 01/14/17 11:58 92 Nasal Cannula 2.0 01/14/17 11:56 37.1 98 24 99/69 (79) 92 01/14/17 11:01 92 22 97/56 (70) 91 01/14/17 11:00 93 18 91 01/14/17 10:46 100/67 (78) 01/14/17 10:39 110 30 126/87 (100) 01/14/17 10:35 96 24 93/53 (66) 91 01/14/17 10:02 96 19 78/51 (60) 91 01/14/17 10:00 98 19 91 01/14/17 09:02 105 27 69/50 (56) 92 01/14/17 09:00 103 29 93/78 (83) 91 01/14/17 08:00 91 Nasal Cannula 3.0 01/14/17 08:00 37.2 100 24 109/72 (84) 91 3.0 01/14/17 07:32 99 14 93 Nasal Cannula 3.0 01/14/17 06:04 99 31 90 105/91 01/14/17 06:02 96 25 111/72 90 103/90 01/14/17 06:02 96 25 103/90 (94) 90 General Appearance: WD/WN, + mild distress Head: normocephalic, atraumatic Eyes: normal inspection, EOMI, sclerae normal ENT: normal ENT inspection, pharynx normal Neck: supple, no adenopathy, thyroid normal, trachea midline Respiratory/Chest: chest non-tender, lungs clear, normal breath sounds, no respiratory distress Cardiovascular: regular rate, rhythm, no gallop, no murmur Abdomen/GI: normal bowel sounds, soft, no organomegaly, + tenderness, + pertinent finding ( Ostomy site without bleeding) Back: normal inspection, no CVA tenderness Extremities/Musculoskelatal: normal inspection, normal capillary refill Neurologic/Psych: alert, oriented x 3 Skin: normal color, warm/dry, no rash Lymphatic: no adenopathy Laboratory Results RUN DATE: 01/14/17 [facility] PAGE 1 RUN TIME: 1300 Specimen Inquiry PATIENT: ERICKA SHEPPARD LOC: [facility] U # : [id number] AGE/SX: 51/M ROOM: E107 REG : 01/13/[address]: Nacho Whitten MD : 1965 BED: 1 DIS : STATUS: ADM IN TLOC: SPEC #: [id number] DENNIS: 01/13/17-UNK STATUS: RES REQ #: [id number] RECD: 01/13/[address]: Naveen Cavazos DO SOURCE: PER FLD ENTR: 01/13/17-[address]: Kate Mccrary, PA-Keren SPDESC: Tc Desouza Jr,D.ONacho Lopez MD ORDERED: AER/GIOVANI CULTSMR Procedure Result Verified Site GRAM STAIN Final 01/14/17-1042 Test not performed OR AER/GIOVANI CULT Preliminary 01/14/17-1300 Organism 1 GRAM NEGATIVE BACILLI QUANITY RARE SENS SENSITIVITY TO FOLLOW Organism 2 GRAM NEGATIVE BACILLI#2 QUANITY RARE SENS SENSITIVITY TO FOLLOW Organism 3 GRAM POSITIVE COCCI QUANITY RARE SENS SENSITIVITIES DEPENDENT ON FURTHER IDENTIFICATION Last 24 Hours Test 01/14/17 05:40 01/14/17 11:31 01/14/17 23:39 01/15/17 01:25 White Blood Count 10.59 K/uL 12.06 K/uL Red Blood Count 4.61 M/uL 3.93 M/uL Hemoglobin 13.8 g/dL 12.0 g/dL Hematocrit 43.1 % 36.6 % Mean Corpuscular Volume 93.5 fL 93.1 fL Mean Corpuscular Hemoglobin 29.9 pg 30.5 pg Mean Corpuscular Hemoglobin Concent 32.0 g/dl 32.8 g/dl Platelet Count 135 K/uL 121 K/uL Mean Platelet Volume 10.2 fL 9.8 fL Neutrophils (%) (Auto) 83.4 % Lymphocytes (%) (Auto) 7.4 % Monocytes (%) (Auto) 8.4 % Eosinophils (%) (Auto) 0.0 % Basophils (%) (Auto) 0.1 % Neutrophils # (Auto) 8.84 K/uL Lymphocytes # (Auto) 0.78 K/uL Monocytes # (Auto) 0.89 K/uL Eosinophils # (Auto) 0.00 K/uL Basophils # (Auto) 0.01 K/uL RDW Standard Deviation 52.8 fL 52.4 fL RDW Coefficient of Variation 15.3 % 15.2 % Immature Granulocyte % (Auto) 0.7 % Immature Granulocyte # (Auto) 0.07 K/uL Sodium Level 140 mmol/L 141 mmol/L Potassium Level 4.4 mmol/L 3.8 mmol/L Chloride Level 108 mmol/L 109 mmol/L Carbon Dioxide Level 23 mmol/L 26 mmol/L Anion Gap 9.0 mmol/L 6.0 mmol/L Blood Urea Nitrogen 15 mg/dl 14 mg/dl Creatinine 0.84 mg/dl 0.94 mg/dl Est Creatinine Clear Calc Drug Dose 124.2 ml/min 111.0 ml/min Estimated GFR () 119.2 109.9 Estimated GFR (Non- 102.8 94.8 BUN/Creatinine Ratio 18.2 14.9 Random Glucose 152 mg/dl 131 mg/dl Calcium Level 7.8 mg/dl 7.8 mg/dl Phosphorus Level 2.4 mg/dl Magnesium Level 2.1 mg/dl Total Bilirubin 0.6 mg/dl Aspartate Amino Transf (AST/SGOT) 15 U/L Alanine Aminotransferase (ALT/SGPT) 29 U/L Alkaline Phosphatase 31 U/L Total Protein 5.5 gm/dl Albumin 2.9 gm/dl Globulin 2.6 gm/dl Albumin/Globulin Ratio 1.1 Bedside Glucose 117 mg/dl 129 mg/dl Vancomycin Level Trough 11.8 mcg/ml Patient Name: VALARIEERICKA Unit Number: [id number] Dictated: 01/13/17918 Transcribed: 01/13/17918 ARG Printed Date/Time: [~ rep prt dt]/[~ rep prt tm] [~ rep ct labl] - [~ rep ct ivnm] [facility] [place] [address] Dictated: 01/13/17918 Transcribed: 01/13/17918 ARG Printed Date/Time: [~ rep prt dt]/[~ rep prt tm] [~ rep ct labl] - [~ rep ct ivnm] CT ABD/PELVIS IV CONTRAST ONLY CLINICAL HISTORY: Right-sided abdominal pain COMPARISON STUDY: 10/04/2013 TECHNIQUE: Following the IV administration of 91 mL of Optiray-320, CT scan of the abdomen and pelvis was performed from the lung bases to the proximal femurs. Images are reviewed in the axial, sagittal, and coronal planes. IV contrast was administered without complication. CT DOSE: 625.48 mGy.cm FINDINGS: Lower chest: There are dependent atelectatic changes. Is small hiatal hernia. Liver: There is a stable 7 mm hepatic hypodensity likely representing a cyst. Gallbladder: Unremarkable. Spleen: Normal in size and attenuation. Pancreas: Unremarkable. Adrenal glands: Unremarkable. Kidneys: There is symmetric renal cortical enhancement. The kidneys are normal in size without hydronephrosis. Bowel: There is a right inguinal hernia which contains a knuckle of sigmoid colon. There is sigmoid colon wall thickening. There is scattered sigmoid diverticula. There is mild diffuse infiltration of the peritoneal fat. There are scattered extraluminal air bubbles. In the setting of abdominal pain, the findings are indicative of a perforated viscus. There is infiltration of the fat within the right inguinal hernia. There are no transition zone to indicate a high-grade bowel obstruction.. There is infiltration the periappendiceal fat. This may be a secondary finding given the diffuse pelvic inflammatory changes. A perforated appendicitis cannot be excluded, although this diagnosis is not suspected Peritoneum: There are small droplets of free intraperitoneal air. There is minimal free fluid within the abdomen and pelvis. Vasculature: The abdominal aorta is normal in course and caliber. Adenopathy: None. Pelvic viscera: The bladder, and pelvic viscera are unremarkable. Skeletal structures: No destructive osseous lesions are seen. IMPRESSION: 1. Small amounts of free intraperitoneal air. In the setting of abdominal pain, the findings are indicative of a perforated viscus. Surgical consultation is recommended 2. Right inguinal hernia containing a small knuckle of sigmoid colon. There is fluid within the hernia sac and infiltration of the fat within the hernia sac. 3. Scattered sigmoid diverticula. Sigmoid wall thickening. Infiltration of the pelvic peritoneal fat. Perforated diverticulitis must be considered as a possible etiology of the patient's free intraperitoneal air 4. No current evidence of bowel obstruction Electronically signed by: Thaddeus Lewis M.D. 01/13/2017 9:33 AM Dictated Date/Time: 01/13/2017 9:19 AM The status of this report is Signed. Draft = Not yet reviewed or approved by Radiologist. Signed = Reviewed and approved by Radiologist. <AttendingPhy></AttendingPhy> <FamilyPhy>Tc Desouza Jr,D.O.</FamilyPhy> < PrimaryPhy>Tc Desouza Jr,D.O.</PrimaryPhy> <UnitNumber>[id number]</ UnitNumber> <VisitNumber>[id number]</VisitNumber> <PatientName>VALARIEERICKA</ PatientName> <DateOfBirth>1965</DateOfBirth> <Location>[facility]</Location> < ServiceDate>01/13/17</ServiceDate> <MNE>ESINDI</MNE> <OrderingPhy>Naveen Cavazos DO</OrderingPhy> <OrderingPhyMNE>f rep ord dr zuniga</OrderingPhyMNE> < DictatingPhyMNE>f rep dict dr zuniga</DictatingPhyMNE> <CCListMNE>f rep ct mne</ CCListMNE> <AdmittingPhyMNE>f pt admit dr zuniga</AdmittingPhyMNE> <AttendingPhyMNE >f pt attend dr zuniga</AttendingPhyMNE> <ConsultingPhyMNE>f pt consult dr zuniga</ConsultingPhyMNE> <FamilyPhyMNE>f pt fam dr zuniga</FamilyPhyMNE> <OtherPhyMNE>f pt other dr zuniga</OtherPhyMNE> < PrimaryPhyMNE>f pt prim care dr zuniga</PrimaryPhyMNE> <ReferringPhyMNE>f pt referring dr zuniga</ReferringPhyMNE> Assessment & Plan 51-year-old male with sepsis and peritonitis from incarcerated hernia and sigmoid colon perforation now status post emergency repair. Cultures growing both gram-positive and Gram-negative organisms, so combination of vancomycin and Zosyn appropriate pending final identification and sensitivities. Length of IV antibiotics will be determined by clinical response. ID service will follow.
[2017-01-15] MEDS: D5W AND NSS 1,000 ML IV SCH ×2 (06:26→08:06)
[2017-01-15] MEDS ORDERED: NURSING VERBAL MED ORDER ONE (07:30)
--- NOTE | 2017-01-15 07:58 | Surgery Progress Note ---
Surgery Progress Note Date of Service Jan 15, 2017. Subjective Post OP Day: 2 + feeling well pt is stable, pt said he feels better, pt denies nausea, no vomiting, no gas in colostomy bag, AYDIN minimal, Objective Vital Signs: Date Time Temp Pulse Resp B/P (MAP) Pulse Ox O2 Delivery O2 Flow Rate FiO2 01/15/17 07:20 100 16 93 Nasal Cannula 2.0 01/15/17 07:00 37.2 98 20 112/70 (84) 91 1.0 01/15/17 06:08 105 24 121/73 (89) 92 1.0 01/15/17 05:01 102 19 106/68 (81) 91 1.0 01/15/17 04:01 37.0 105 18 113/68 (83) 92 1.0 01/15/17 04:00 95 Nasal Cannula 1.0 01/15/17 03:02 108 18 110/64 (79) 92 1.0 01/15/17 02:18 97 16 89 Room Air 01/15/17 02:02 99 18 113/60 (77) 89 2.0 01/15/17 01:02 103 17 111/65 (80) 88 2.0 01/15/17 00:01 37.1 112 30 124/74 (91) 92 2.0 01/14/17 23:59 95 Nasal Cannula 1.0 01/14/17 23:02 100 18 97/57 (70) 92 2.0 01/14/17 22:02 111 23 107/57 (74) 91 1.0 01/14/17 21:02 111 17 97/68 (78) 90 01/14/17 20:02 37.3 113 23 120/79 (93) 91 1.0 01/14/17 20:00 93 Nasal Cannula 1.0 01/14/17 19:45 112 33 148/95 (112) 86 01/14/17 19:26 100 16 93 Nasal Cannula 1.0 01/14/17 18:00 106 22 113/75 (88) 94 2.0 01/14/17 16:00 36.7 108 24 122/79 (93) 91 2.0 01/14/17 15:28 104 14 92 Nasal Cannula 2.0 01/14/17 15:28 91 Nasal Cannula 2.0 01/14/17 14:00 104 24 124/76 (92) 92 2.0 01/14/17 12:00 91 20 92 01/14/17 12:00 37.1 100 24 99/69 (79) 92 2.0 01/14/17 11:58 92 Nasal Cannula 2.0 01/14/17 11:56 37.1 98 24 99/69 (79) 92 01/14/17 11:01 92 22 97/56 (70) 91 01/14/17 11:00 93 18 91 01/14/17 10:46 100/67 (78) 01/14/17 10:39 110 30 126/87 (100) 01/14/17 10:35 96 24 93/53 (66) 91 01/14/17 10:02 96 19 78/51 (60) 91 01/14/17 10:00 98 19 91 01/14/17 09:02 105 27 69/50 (56) 92 01/14/17 09:00 103 29 93/78 (83) 91 01/14/17 08:00 91 Nasal Cannula 3.0 01/14/17 08:00 37.2 100 24 109/72 (84) 91 3.0 General Appearance: WD/WN Head: normocephalic Neck: supple, no JVD Respiratory/Chest: chest non-tender, lungs clear Cardiovascular: regular rate, rhythm, no edema, no gallop, no JVD Abdomen: normal bowel sounds, non distended, soft, + tenderness Incision(s): clean, dry, no drainage Extremities: normal range of motion, non-tender, normal inspection Laboratory Results: Results Past 24 Hours Test 01/14/17 11:31 01/14/17 23:39 01/15/17 01:25 Range/Units Bedside Glucose 117 129 70-99 mg/dl White Blood Count 12.06 4.8-10.8 K/uL Red Blood Count 3.93 4.7-6.1 M/uL Hemoglobin 12.0 14.0-18.0 g/dL Hematocrit 36.6 42-52 % Mean Corpuscular Volume 93.1 80-100 fL Mean Corpuscular Hemoglobin 30.5 25-34 pg Mean Corpuscular Hemoglobin Concent 32.8 32-36 g/dl RDW Standard Deviation 52.4 36.4-46.3 fL RDW Coefficient of Variation 15.2 11.5-14.5 % Platelet Count 121 130-400 K/uL Mean Platelet Volume 9.8 7.4-10.4 fL Sodium Level 141 136-145 mmol/L Potassium Level 3.8 3.5-5.1 mmol/L Chloride Level 109 98-107 mmol/L Carbon Dioxide Level 26 21-32 mmol/L Anion Gap 6.0 3-11 mmol/L Blood Urea Nitrogen 14 7-18 mg/dl Creatinine 0.94 0.60-1.40 mg/dl Est Creatinine Clear Calc Drug Dose 111.0 ml/min Estimated GFR () 109.9 Estimated GFR (Non- 94.8 BUN/Creatinine Ratio 14.9 10-20 Random Glucose 131 70-99 mg/dl Calcium Level 7.8 8.5-10.1 mg/dl Vancomycin Level Trough 11.8 SEE COMMENT mcg/ml Assessment & Plan IMP S/P Exp lap eliu procedure, repair right inguinal hernia,AYDIN X 1, I update information to pt and pt's family members about OR finding and the procedures pt had, they understood, I answered all questions, continue treatment I called ICU attending, repeat labs in am, ID consult, will F/U 01/14/2017 AYDIN minimal pt is doing better, continue treatment, will F/U 01/15/2017 pt is stable, good urine output, WBC 12,000 ID consult for sepsis repeat labs in am, continue iv antibiotic, will F/U IMP S/P Exp lap eliu procedure, repair right inguinal hernia,AYDIN X 1, I update information to pt and pt's family members about OR finding and the procedures pt had, they understood, I answered all questions, continue treatment I called ICU attending, repeat labs in am, ID consult, will F/U 01/14/2017 AYDIN minimal pt is doing better, continue treatment, will F/U
[2017-01-15] MEDS: PANTOprazole INJ 40 MG in SYRINGE 0 ML IV SCH ×2 (08:01→20:14)
[2017-01-15] MEDS: BACITRACIN OINT 15 GM TUBE EXT SCH ×2 (08:05→20:16)
[2017-01-15] MEDS: ENOXAPARIN 40 MG/0.4 ML SYR SQ SCH (08:09)
[2017-01-15] MEDS: ENALAPRILAT IV 2.5 MG in DEXTROSE 5% 25ML 25 ML IV SCH ×2 (08:11→20:14)
[2017-01-15 09:04] LABS: MAGNESIUM 2.2 mg/dl (1.8-2.4); PHOSPHORUS 1.9 mg/dl (2.5-4.9)
[2017-01-15] MEDS: LEVOTHYROXINE SODIUM INJ 100 MCG in SYRINGE 0 ML IV SCH (09:05)
[2017-01-15] MEDS: VANCOMYCIN INJ 1,500 MG in SODIUM CHLORIDE 0.9% 500ML 500 ML IV SCH ×2 (09:40→18:13)
[2017-01-15] MEDS ORDERED: POTASSIUM PHOS 3 MMOL/1 ML INFUSION IV STA (13:19)
--- NOTE | 2017-01-15 13:39 | Critical Care Progress Note ---
Critical Care Progress Note Date of Service Jan 15, 2017. ICU Day ICU Day Number: [address] Del Valle Subjective 51 yo male known to have HTn, hypothyroidism and hyperlipidemia as well as bilateral inguinal hernia s/p surgical correction x 3 /site He was admitted 01/13/17 with incarcerated inguinal hernia on the right with perforate viscus likely sigmoidcolon. Dr Whitten took him to the OR and performed partial colectomy with heartmans pouch and colostomy construction. Patient has been stable in ICU and is on IVF with antiobiotics due to peritonitis. He says his pain is under control but he is tachycardiac. he says he is bored. he is not particularly anemic. The colostomy bag still has minimal clear fluid in it. BS remain quite. He tolerated ambulating really well today Dr Whitten would likely to keep him NPO one more day since colostomy is still not fully functional. Will put his NG to clamp. Objective General Appearance: mild distress Head: normocephalic, atraumatic Eyes: PERRLA, no discharge, sclerae normal ENT: normal ear exam, poor dentition Neck: normal range of motion, supple Respiratory: wheezing cleared Cardiovasular: regular rate/rhythm, normal S1S2, no M/G/R Abdomen: other (right paraambilical and inguinal dressing with colostomy in the LLQ, clean and pink. with minimal clear fluid in the bag. There is no oozing or bleeding. He has direct tenderness in the RLQ and epigastic areas less so in the LLQ) Genitourinary - Male: external genitalia normal Extremities: no edema clubbing or cyanosis Neuro: alert, oriented x 3, normal motor exam Psychiatric: normal affect Current SOFA Score SOFA Score Response (Comments) Value Platelets (x10) < 150 1 Bilirubin (mg/dL) < 1.2 0 [place] Coma Score 15 0 Level of Hypotension No Hypotension 0 Creatinine (mg/dL) < 1.2 0 Total 1 Previous SOFA Scores 1 Assessment & Plan This is a 51 year old male known to have HTN hypothyroidism smoker of 1 ppd hyperlipidemia admitted with incarcerated R inguinal hernia and sigmoid perforation with peritonitis s/p resection lockett's pouch construction and colostomy. for further observation and management in MICU neurologic pain control with hydromorphone escalate to 2mg IV Q3 PRN. respiratory He seems to have COPD his wheezing responded to nebulizers Ipratropium/levalbuterol Q6 hours incentive spirometer and would suggest outpatient PFT and pulmonary eval for sleep study as well cardiovascular will resume his simvastatin once it is OK with surgery to have PO intake Will resume ASA once he is able to have PO intake enalaprilat 2.5 mg IV Q12 to control BP until his lisinopril can be resumed 20 mg daily obtain Echo in am Will use metoprolol PRN for his tachycardia. Will also check TSH in am GI NPO one more day clamp NG pantoprazole IV Renal 100 ml NS His U O is 0.85 ml/Kg BW-hr last 24 hour FU Mg and Phosphorus. His P is even lower today and I gave him 24 mmoles ID vancomycin and zosyn with pharmacy dosing to cover for colonic star related peritonitis blood culture and urine culture given WBC. Initial urine culture has only 1000 CFU but his urine is dark. Will repeat culture DVT prophylaxis lovenox SQ Q am DC garcia catheter, an A line removed Patient is critically ill and will monitor and manage in ICU total CC time 42 minutes. Family updated at bedside, Consults & Procedures Consultants: surgery Procedures: inguinal hernia repair and colostomy a line insertion Data Medications: Current Inpatient Medications Medications (Trade) Dose Ordered Sig/Luis Fernando Route Start Time Stop Time Status Last Admin Dose Admin Ioversol (Optiray 320) 100 ml UD PRN IV 01/13/17 08:15 01/17/17 08:14 Ondansetron HCl (Zofran Inj) 4 mg Q4H PRN IV 01/13/17 15:45 02/12/17 15:44 Acetaminophen (Tylenol Tab) 650 mg Q6H PRN PO 01/13/17 15:45 02/12/17 15:44 Pantoprazole Sodium 40 mg/ Syringe 10 ml @ 5 mls/min DAILY@ IV 01/13/17 21:00 02/12/17 20:59 01/15/17 08:01 5 MLS/MIN Levothyroxine Sodium 100 mcg/ Syringe 5 ml @ 2 mls/min DAILY@09 IV 01/14/17 09:00 02/13/17 08:59 01/15/17 09:05 2 MLS/MIN Enalaprilat 2.5 mg/Dextrose 27 ml @ 100 mls/hr Q12 IV 01/14/17 09:00 02/13/17 08:59 01/15/17 08:11 100 MLS/HR Piperacillin Sod/ Tazobactam Sod (Consult) 1 ea UD PRN N/A 01/13/17 18:10 02/12/17 18:09 Vancomycin HCl (Consult) 1 ea UD PRN N/A 01/13/17 18:09 02/12/17 18:08 Ipratropium [place] (Atrovent 0.02% 0.5MG/2.5ML Neb) 0.5 mg Q6R INH 01/13/17 21:00 02/12/17 20:59 01/15/17 07:20 0.5 MG Levalbuterol (Xopenex 1.25MG/ 0.5ML Neb) 1.25 mg Q6R INH 01/13/17 21:00 02/12/17 20:59 01/15/17 07:20 1.25 MG Piperacillin Sod/ Tazobactam Sod 4.5 gm/Dextrose 120 ml @ 30 mls/hr Q8@0400,1200,2000 IV 01/14/17 04:00 01/23/17 19:59 01/15/17 11:19 30 MLS/HR Enoxaparin Sodium (Lovenox Inj) 40 mg QAM SQ 01/15/17 09:00 02/14/17 08:59 01/15/17 08:09 40 MG Dextrose/Sodium Chloride 1,000 ml @ 125 mls/hr Q8H IV 01/14/17 14:15 01/15/17 14:14 01/15/17 08:06 125 MLS/HR Hydromorphone HCl (Dilaudid Inj) 1.5 mg Q3H PRN IV 01/14/17 15:45 01/27/17 15:44 Hydromorphone HCl (Dilaudid Inj) 2 mg Q3H PRN IV 01/14/17 14:30 01/28/17 14:29 01/15/17 11:51 2 MG Fentanyl Citrate (Fentanyl Inj) 75 mcg Q2H PRN IV 01/14/17 20:15 01/28/17 20:14 01/15/17 10:37 75 MCG Bacitracin (Bacitracin Oint) 1 appln BID EXT 01/15/17 09:00 02/14/17 08:59 01/15/17 08:05 1 APPLN Vancomycin HCl 1500 mg/Sodium Chloride 530 ml @ 200 mls/hr Q8H IV 01/15/17 10:00 01/23/17 17:59 01/15/17 09:40 200 MLS/HR Vital Signs: Date Time Temp Pulse Resp B/P (MAP) Pulse Ox O2 Delivery O2 Flow Rate FiO2 01/15/17 11:43 91 Room Air 01/15/17 08:00 99 21 111/69 (83) 93 1.0 01/15/17 08:00 93 Nasal Cannula 1.0 01/15/17 07:20 100 16 93 Nasal Cannula 2.0 01/15/17 07:00 37.2 98 20 112/70 (84) 91 1.0 01/15/17 06:08 105 24 121/73 (89) 92 1.0 01/15/17 05:01 102 19 106/68 (81) 91 1.0 01/15/17 04:01 37.0 105 18 113/68 (83) 92 1.0 01/15/17 04:00 95 Nasal Cannula 1.0 01/15/17 03:02 108 18 110/64 (79) 92 1.0 01/15/17 02:18 97 16 89 Room Air 01/15/17 02:02 99 18 113/60 (77) 89 2.0 01/15/17 01:02 103 17 111/65 (80) 88 2.0 01/15/17 00:01 37.1 112 30 124/74 (91) 92 2.0 01/14/17 23:59 95 Nasal Cannula 1.0 01/14/17 23:02 100 18 97/57 (70) 92 2.0 01/14/17 22:02 111 23 107/57 (74) 91 1.0 01/14/17 21:02 111 17 97/68 (78) 90 01/14/17 20:02 37.3 113 23 120/79 (93) 91 1.0 01/14/17 20:00 93 Nasal Cannula 1.0 01/14/17 19:45 112 33 148/95 (112) 86 01/14/17 19:26 100 16 93 Nasal Cannula 1.0 01/14/17 18:00 106 22 113/75 (88) 94 2.0 01/14/17 16:00 36.7 108 24 122/79 (93) 91 2.0 01/14/17 15:28 104 14 92 Nasal Cannula 2.0 01/14/17 15:28 91 Nasal Cannula 2.0 01/14/17 14:00 104 24 124/76 (92) 92 2.0 Laboratory Results: Last 24 Hours Test 01/14/17 23:39 01/15/17 01:25 Bedside Glucose 129 mg/dl White Blood Count 12.06 K/uL Red Blood Count 3.93 M/uL Hemoglobin 12.0 g/dL Hematocrit 36.6 % Mean Corpuscular Volume 93.1 fL Mean Corpuscular Hemoglobin 30.5 pg Mean Corpuscular Hemoglobin Concent 32.8 g/dl RDW Standard Deviation 52.4 fL RDW Coefficient of Variation 15.2 % Platelet Count 121 K/uL Mean Platelet Volume 9.8 fL Sodium Level 141 mmol/L Potassium Level 3.8 mmol/L Chloride Level 109 mmol/L Carbon Dioxide Level 26 mmol/L Anion Gap 6.0 mmol/L Blood Urea Nitrogen 14 mg/dl Creatinine 0.94 mg/dl Est Creatinine Clear Calc Drug Dose 111.0 ml/min Estimated GFR () 109.9 Estimated GFR (Non- 94.8 BUN/Creatinine Ratio 14.9 Random Glucose 131 mg/dl Calcium Level 7.8 mg/dl Phosphorus Level 1.9 mg/dl Magnesium Level 2.2 mg/dl Vancomycin Level Trough 11.8 mcg/ml
[2017-01-15] MEDS ORDERED: METOPROLOL TARTRATE 1 MG/ML VIAL IV PRN (13:45)
[2017-01-15] MEDS ORDERED: POTASSIUM PHOSPHATE INJ 24 MMOL in SODIUM CHLORIDE 0.9% 500ML 500 ML IV SCH (13:45)
--- NOTE | 2017-01-15 13:57 | Pharmacy Progress Note ---
Pharmacy Antibiotic Prog Note Date of Service Jan 15, 2017. Subjective The patient is currently receiving Vancomycin 1300 mg (~13mg/kg) IV every 8 hours for s/p colon resection. The patient is currently on day # 310 of Vancomycin IV therapy. Objective Height (Feet): 5 Height (Inches): 10.00 Weight (Kilograms): 96.800 Levels: Item Value Date Time Vancomycin Level Trough 11.8 mcg/ml 01/15/17 0125 Lab Results (24hrs): Test 01/14/17 23:39 01/15/17 01:25 Bedside Glucose 129 mg/dl (70-99) White Blood Count 12.06 K/uL (4.8-10.8) Red Blood Count 3.93 M/uL (4.7-6.1) Hemoglobin 12.0 g/dL (14.0-18.0) Hematocrit 36.6 % (42-52) Mean Corpuscular Volume 93.1 fL (80-100) Mean Corpuscular Hemoglobin 30.5 pg (25-34) Mean Corpuscular Hemoglobin Concent 32.8 g/dl (32-36) RDW Standard Deviation 52.4 fL (36.4-46.3) RDW Coefficient of Variation 15.2 % (11.5-14.5) Platelet Count 121 K/uL (130-400) Mean Platelet Volume 9.8 fL (7.4-10.4) Sodium Level 141 mmol/L (136-145) Potassium Level 3.8 mmol/L (3.5-5.1) Chloride Level 109 mmol/L (98-107) Carbon Dioxide Level 26 mmol/L (21-32) Anion Gap 6.0 mmol/L (3-11) Blood Urea Nitrogen 14 mg/dl (7-18) Creatinine 0.94 mg/dl (0.60-1.40) Est Creatinine Clear Calc Drug Dose 111.0 ml/min Estimated GFR () 109.9 Estimated GFR (Non- 94.8 BUN/Creatinine Ratio 14.9 (10-20) Random Glucose 131 mg/dl (70-99) Calcium Level 7.8 mg/dl (8.5-10.1) Phosphorus Level 1.9 mg/dl (2.5-4.9) Magnesium Level 2.2 mg/dl (1.8-2.4) Vancomycin Level Trough 11.8 mcg/ml (SEE COMMENT) Micro Results: Item Value Date Time Urine Culture Received 01/15/17 1300 Urine , Clean Catch Pending Blood Culture - Preliminary Resulted 01/13/17 1745 Blood NO GROWTH TO DATE. Gram Stain - Final Resulted 01/13/17 0000 Peritoneal Fluid e. coli Gram negative bacilli Gram positive cocci Urine Culture - Final Complete 01/13/17 0000 Urine,Catheterized NO GROWTH - LESS THAN 1,000 COLONIES/ML SPEC #: [id number] DENNIS: 01/13/17-UNK STATUS: RES REQ #: [id number] RECD: 01/13/[address] [facility] DR: Naveen Cavazos DO SOURCE: PER [facility] ENTR: 01/13/[address] [facility] [address]: Kate Mccrary ., PA-C SPDESC: Tc Desouza Jr,Nacho Hunt MD ORDERED: AER/GIOVANI CULTSMR Procedure Result Verified Site GRAM STAIN Final 01/14/17-1042 Test not performed OR AER/GIOVANI CULT Preliminary 01/15/17-1323 Organism 1 ESCHERICHIA COLI QUANITY RARE SENS SENSITIVITY TO FOLLOW Organism 2 GRAM NEGATIVE BACILLI#2 QUANITY RARE SENS SENSITIVITY TO FOLLOW Organism 3 GRAM POSITIVE COCCI QUANITY RARE SENS SENSITIVITY TO FOLLOW 1. ESCHERICHIA COLI Target Route Dose RX AB Cost M.I.C. IQ ------ ----- ------ -- ------ -------- - ------ TRIMET/SULFA R > AMPICILLIN R >16 AMPICILLIN/SUL I 16/8 CEFAZOLIN S <=8 CEFOTAXIME S <=2 CEFTRIAXONE S <=1 CEFEPIME S <=4 CEFUROXIME S <=4 IMIPENEM S <=1 GENTAMICIN R >8 TOBRAMYCIN R >8 AMIKACIN S <=16 CIPROFLOXACIN R >2 LEVOFLOXACIN R >4 ERTAPENEM S <=1 PIP/TAZO S <=16 S = SENSITIVE I = INTERMEDIATE R = RESISTANT Recent Pertinent Medications Item Value Date Time Metronidazole 500 100 ml @ 100 mls/hr 01/13/17 1200 mg/Prmx TODAY@1200/IV 01/13/17 1215 Piperacillin Sod/ 4.5 gm 01/13/17 0936 Tazobactam Sod NOW STAT/IV 01/13/17 0936 (Zosyn Iv) Piperacillin Sod/ 120 ml @ 200 mls/hr 01/13/17 1200 Tazobactam Sod TODAY@1200/IV 01/13/17 1215 4.5 gm/Dextrose Piperacillin Sod/ 120 ml @ 28.7 mls/hr 01/13/17 1830 Tazobactam Sod Q8/IV 01/13/17 1926 4.5 gm/Dextrose Piperacillin Sod/ 120 ml @ 30 mls/hr 01/14/17 0400 Tazobactam Sod Q8@0400,1200,2000/IV 01/15/17 1119 4.5 gm/Dextrose Vancomycin HCl 276 ml @ 125 mls/hr 01/14/17 0200 1300 mg/Sodium Q8@0200,1000,1800/IV 01/15/17 0236 Chloride Vancomycin HCl 548 ml @ 200 mls/hr 01/13/17 1800 2400 mg/Sodium TODAY@1800/IV 01/13/17 1808 Chloride Assessment & Plan Pharmacy has been consulted to dose and monitor Vancomycin for s/p colon resection. Vancomycin trough level of 11.8mcg/mL is: Subtherapeutic Change to Vancomycin 1500 mg (~15mg/kg) IV every 8 hours. * Dose increased by ~15% in order to increase serum concentrations by 15% and achieve therapeutic levels. * Goal trough level estimate: between 15 - 20 mcg/mL. * Trough level has been ordered for: ~30 minutes before the 1800 dose in order to ensure therapeutic concentrations without causing Vancomycin accumulation and toxicity. Pharmacy will continue to follow and will adjust dose/frequency as necessary. Thank you
[2017-01-16] VITALS (19 sets, daily range): BP systolic 98–136; BP diastolic 65–91; PULSE 72–102; TEMP 36.7–37.1; O2SAT 90–98
[2017-01-16] MEDS: FENTANYL CITRATE INJ 50 MCG/1 ML 2 ML VIAL IV PRN ×2 (01:00→11:13)
[2017-01-16] MEDS: VANCOMYCIN INJ 1,500 MG in SODIUM CHLORIDE 0.9% 500ML 500 ML IV SCH ×3 (01:35→18:13)
[2017-01-16] MEDS: IPRATROPIUM BROMIDE NEB SOLN 0.02% 2.5 ML VIAL INH SCH ×4 (01:56→19:46)
[2017-01-16] MEDS: LEVALBUTEROL 1.25MG/0.5ML NEB INH SCH ×4 (01:56→19:46)
[2017-01-16] MEDS: HYDROmorphone INJ 2 MG/ML SYR/VIAL IV PRN ×6 (02:56→22:35)
[2017-01-16] MEDS: PIPERACILL/TAZOBAC IV 4.5 GM in DEXTROSE 5% 100ML 100 ML IV SCH ×3 (04:38→19:42)
[2017-01-16 05:12] LABS: HEMATOCRIT 34.3 % (42-52); MEAN CORPUSCULAR HEMOGLOBIN 29.6 pg (25-34); MEAN CORPUSCULAR HGB CONC 31.5 g/dl (32-36); MEAN PLATELET VOLUME 9.7 fL (7.4-10.4); PLATELET COUNT 130 K/uL (130-400); RED BLOOD COUNT 3.65 M/uL (4.7-6.1); WHITE BLOOD COUNT 13.28 K/uL (4.8-10.8)
[2017-01-16 05:40] LABS: BUN/CREATININE RATIO 13.5 (10-20); CALCIUM 7.7 mg/dl (8.5-10.1); CREATININE 0.99 mg/dl (0.60-1.40); POTASSIUM 3.6 mmol/L (3.5-5.1)
[2017-01-16 05:52] LABS: PHOSPHORUS 2.2 mg/dl (2.5-4.9); THYROID STIMULATING HORMONE 7.43 uIu/ml (0.300-4.500)
[2017-01-16] MEDS ORDERED: POTASSIUM PHOS 3 MMOL/1 ML INFUSION IV STA (06:48)
[2017-01-16] MEDS: BACITRACIN OINT 15 GM TUBE EXT SCH ×2 (07:19→21:42)
[2017-01-16] MEDS ORDERED: POTASSIUM PHOSPHATE INJ 15 MMOL in SODIUM CHLORIDE 0.9% 250ML 250 ML IV SCH (07:30)
[2017-01-16] MEDS: PANTOprazole INJ 40 MG in SYRINGE 0 ML IV SCH ×2 (09:27→20:51)
[2017-01-16] MEDS: LEVOTHYROXINE SODIUM INJ 100 MCG in SYRINGE 0 ML IV SCH (09:28)
[2017-01-16] MEDS: ENALAPRILAT IV 2.5 MG in DEXTROSE 5% 25ML 25 ML IV SCH ×2 (09:28→20:51)
[2017-01-16] MEDS: ENOXAPARIN 40 MG/0.4 ML SYR SQ SCH (09:29)
--- NOTE | 2017-01-16 09:50 | Anesthesiology Progress Note ---
Anesthesia Post Op Note Date & Time Jan 16, 2017 at 09:50 Vital Signs Vital Signs Past 12 Hours Date Time Temp Pulse Resp B/P (MAP) Pulse Ox O2 Delivery O2 Flow Rate FiO2 01/16/17 07:25 72 22 92 01/16/17 06:02 102 27 122/87 (99) 91 01/16/17 05:02 89 15 105/65 (78) 93 01/16/17 04:02 37.0 97 25 120/74 (89) 94 Nasal Cannula 2.0 01/16/17 04:00 95 Nasal Cannula 2.0 01/16/17 03:02 97 8 109/75 (86) 92 Nasal Cannula 2.0 01/16/17 02:02 88 21 114/68 (83) 98 Nasal Cannula 2.0 01/16/17 01:56 86 18 95 Nasal Cannula 2.0 01/16/17 01:02 92 26 112/76 (88) 94 Nasal Cannula 2.0 01/16/17 00:02 90 22 98/69 (79) 92 Nasal Cannula 2.0 01/15/17 23:59 91 Nasal Cannula 2.0 01/15/17 23:02 95 23 109/75 (86) 91 Nasal Cannula 2.0 01/15/17 22:02 93 17 106/65 (79) 94 Nasal Cannula 2.0 Notes Mental Status: alert / awake / arousable, participated in evaluation Pt Amnestic to Procedure: Yes Nausea / Vomiting: adequately controlled Pain: adequately controlled Airway Patency, RR, SpO2: stable & adequate BP & HR: stable & adequate Hydration State: stable & adequate Anesthetic Complications: no major complications apparent
--- NOTE | 2017-01-16 10:24 | Surgery Progress Note ---
Surgery Progress Note Date of Service Jan 16, 2017. Subjective Post OP Day: 3 + feeling well pt feels better, no nausea, no vomiting, walked on hallway, AYDIN minimal, Objective Vital Signs: Date Time Temp Pulse Resp B/P (MAP) Pulse Ox O2 Delivery O2 Flow Rate FiO2 01/16/17 10:00 36.9 97 24 133/79 (97) 91 Room Air 01/16/17 08:00 91 Room Air 01/16/17 07:25 72 22 92 01/16/17 06:02 102 27 122/87 (99) 91 01/16/17 05:02 89 15 105/65 (78) 93 01/16/17 04:02 37.0 97 25 120/74 (89) 94 Nasal Cannula 2.0 01/16/17 04:00 95 Nasal Cannula 2.0 01/16/17 03:02 97 8 109/75 (86) 92 Nasal Cannula 2.0 01/16/17 02:02 88 21 114/68 (83) 98 Nasal Cannula 2.0 01/16/17 01:56 86 18 95 Nasal Cannula 2.0 01/16/17 01:02 92 26 112/76 (88) 94 Nasal Cannula 2.0 01/16/17 00:02 90 22 98/69 (79) 92 Nasal Cannula 2.0 01/15/17 23:59 91 Nasal Cannula 2.0 01/15/17 23:02 95 23 109/75 (86) 91 Nasal Cannula 2.0 01/15/17 22:02 93 17 106/65 (79) 94 Nasal Cannula 2.0 01/15/17 21:02 96 16 99/69 (79) 93 Nasal Cannula 2.0 01/15/17 20:02 36.8 104 23 121/80 (94) 94 Nasal Cannula 2.0 01/15/17 20:00 92 Room Air 01/15/17 19:49 96 23 124/84 (97) 95 Nasal Cannula 2.0 01/15/17 19:37 95 16 89 Room Air 01/15/17 18:08 103 16 136/83 (100) 92 Room Air 01/15/17 16:55 99 32 92 01/15/17 16:50 99 21 91 01/15/17 16:45 97 29 92 01/15/17 16:40 95 27 91 01/15/17 16:35 98 24 92 01/15/17 16:30 97 25 91 01/15/17 16:25 100 25 91 01/15/17 16:20 97 25 91 01/15/17 16:15 89 21 91 01/15/17 16:10 91 19 89 01/15/17 16:05 99 26 90 01/15/17 16:02 100 21 113/74 (87) 01/15/17 15:50 92 28 92 01/15/17 15:47 93 22 108/74 (85) 92 01/15/17 15:45 101 19 92 01/15/17 15:45 93 Nasal Cannula 2.0 01/15/17 15:44 36.7 90 21 97/67 (77) 94 2.0 01/15/17 15:40 36.7 87 20 86/64 (71) 93 2.0 01/15/17 15:32 36.7 111 16 110/65 (80) 90 2.0 01/15/17 15:26 111 116/66 01/15/17 15:00 36.7 110 18 116/66 (83) 91 01/15/17 14:10 95 16 90 Room Air 01/15/17 13:02 96 24 126/79 (95) 91 01/15/17 13:00 97 20 90 01/15/17 13:00 36.8 96 18 126/79 (95) 92 01/15/17 12:45 101 24 127/84 (98) 01/15/17 12:00 94 21 90 01/15/17 11:43 91 Room Air 01/15/17 11:00 100 19 91 General Appearance: WD/WN Head: normocephalic Neck: supple, no JVD Respiratory/Chest: chest non-tender, lungs clear Cardiovascular: regular rate, rhythm, no edema, no gallop, no JVD Abdomen: normal bowel sounds, non distended, soft, + tenderness Incision(s): clean, dry, intact Extremities: normal range of motion, non-tender, normal inspection Laboratory Results: Results Past 24 Hours Test 01/16/17 05:00 Range/Units White Blood Count 13.28 4.8-10.8 K/uL Red Blood Count 3.65 4.7-6.1 M/uL Hemoglobin 10.8 14.0-18.0 g/dL Hematocrit 34.3 42-52 % Mean Corpuscular Volume 94.0 80-100 fL Mean Corpuscular Hemoglobin 29.6 25-34 pg Mean Corpuscular Hemoglobin Concent 31.5 32-36 g/dl RDW Standard Deviation 55.1 36.4-46.3 fL RDW Coefficient of Variation 15.9 11.5-14.5 % Platelet Count 130 130-400 K/uL Mean Platelet Volume 9.7 7.4-10.4 fL Sodium Level 145 136-145 mmol/L Potassium Level 3.6 3.5-5.1 mmol/L Chloride Level 113 98-107 mmol/L Carbon Dioxide Level 25 21-32 mmol/L Anion Gap 7.0 3-11 mmol/L Blood Urea Nitrogen 13 7-18 mg/dl Creatinine 0.99 0.60-1.40 mg/dl Est Creatinine Clear Calc Drug Dose 105.3 ml/min Estimated GFR () 103.2 Estimated GFR (Non- 89.1 BUN/Creatinine Ratio 13.5 10-20 Random Glucose 117 70-99 mg/dl Calcium Level 7.7 8.5-10.1 mg/dl Phosphorus Level 2.2 2.5-4.9 mg/dl Thyroid Stimulating Hormone (TSH) 7.430 0.300-4.500 uIu/ml Microbiology Results 01/15/17 Urine Culture, Received Pending Assessment & Plan IMP S/P Exp lap eliu procedure, repair right inguinal hernia,AYDIN X 1, I update information to pt and pt's family members about OR finding and the procedures pt had, they understood, I answered all questions, continue treatment I called ICU attending, repeat labs in am, ID consult, will F/U 01/14/2017 AYDIN minimal pt is doing better, continue treatment, will F/U 01/15/2017 pt is stable, good urine output, WBC 12,000 ID consult for sepsis repeat labs in am, continue iv antibiotic, will F/U 01/16/2017 D/C NG tube, clear diet, repeat labs in am, ID consult, transfer to surgical floor, will F/U clear liquids IMP S/P Exp lap eliu procedure, repair right inguinal hernia,AYDIN X 1, I update information to pt and pt's family members about OR finding and the procedures pt had, they understood, I answered all questions, continue treatment I called ICU attending, repeat labs in am, ID consult, will F/U 01/14/2017 AYDIN minimal pt is doing better, continue treatment, will F/U 01/15/2017 pt is stable, good urine output, WBC 12,000 ID consult for sepsis repeat labs in am, continue iv antibiotic, will F/U
--- NOTE | 2017-01-16 10:35 | Critical Care Progress Note ---
Critical Care Progress Note Date of Service Jan 16, 2017. Attending Dr. Gamboa Subjective He is starting to feel better. Bowel sounds now present. No worsening pain. No nausea or vomiting. The current med profile is tolerated. He is ambulating about the unit. Objective General Appearance: no distress Head: normocephalic, atraumatic Eyes: PERRLA, no discharge, sclerae normal ENT: no targets Neck: negative finding Respiratory: diminished some in the base but overall good. No rales or rhonchi. Cardiovasular: no edema/rate and B/P ok Abdomen: The wound is dressed. No new surgical target identified Genitourinary -no issue Extremities: no edema clubbing or cyanosis Neuro: alert, oriented x 3, normal motor exam Psychiatric: normal affect Current SOFA Score SOFA Score Response (Comments) Value Platelets (x10) < 150 1 Bilirubin (mg/dL) < 1.2 0 [place] Coma Score 15 0 Level of Hypotension No Hypotension 0 Creatinine (mg/dL) < 1.2 0 Total 1 Previous SOFA Scores 1 Assessment & Plan Incarcerated hernia with surgical resection and colostomy: 1. Cardio--volume status acceptable--would like to see advance of oral and reduction of IV 2. Pulmonary--toilette facilitated with ambulation 3. GI--starting to be functional--clears to advance recommended--NG out if ok with surgery 4. F/E/N--acceptable 5. Dispo--no ICU concerns identified--will be ok for med/surg floor Consults & Procedures Consultants: surgery Procedures: inguinal hernia repair and colostomy a line insertion Data Medications: Current Inpatient Medications Medications (Trade) Dose Ordered Sig/Luis Fernando Route Start Time Stop Time Status Last Admin Dose Admin Ioversol (Optiray 320) 100 ml UD PRN IV 01/13/17 08:15 01/17/17 08:14 Ondansetron HCl (Zofran Inj) 4 mg Q4H PRN IV 01/13/17 15:45 02/12/17 15:44 Acetaminophen (Tylenol Tab) 650 mg Q6H PRN PO 01/13/17 15:45 02/12/17 15:44 Pantoprazole Sodium 40 mg/ Syringe 10 ml @ 5 mls/min DAILY@,21 IV 01/13/17 21:00 02/12/17 20:59 6/17 09:27 5 MLS/MIN Levothyroxine Sodium 100 mcg/ Syringe 5 ml @ 2 mls/min DAILY@09 IV 01/14/17 09:00 02/13/17 08:59 01/16/17 09:28 2 MLS/MIN Enalaprilat 2.5 mg/Dextrose 27 ml @ 100 mls/hr Q12 IV 01/14/17 09:00 02/13/17 08:59 01/16/17 09:28 100 MLS/HR Piperacillin Sod/ Tazobactam Sod (Consult) 1 ea UD PRN N/A 01/13/17 18:10 02/12/17 18:09 Vancomycin HCl (Consult) 1 ea UD PRN N/A 01/13/17 18:09 02/12/17 18:08 Ipratropium [place] (Atrovent 0.02% 0.5MG/2.5ML Neb) 0.5 mg Q6R INH 01/13/17 21:00 02/12/17 20:59 01/16/17 07:25 0.5 MG Levalbuterol (Xopenex 1.25MG/ 0.5ML Neb) 1.25 mg Q6R INH 01/13/17 21:00 02/12/17 20:59 01/16/17 07:25 1.25 MG Piperacillin Sod/ Tazobactam Sod 4.5 gm/Dextrose 120 ml @ 30 mls/hr Q8@0400,1200,2000 IV 01/14/17 04:00 01/23/17 19:59 01/16/17 04:38 30 MLS/HR Enoxaparin Sodium (Lovenox Inj) 40 mg QAM SQ 01/15/17 09:00 02/14/17 08:59 01/16/17 09:29 40 MG Hydromorphone HCl (Dilaudid Inj) 1.5 mg Q3H PRN IV 01/14/17 15:45 01/27/17 15:44 Hydromorphone HCl (Dilaudid Inj) 2 mg Q3H PRN IV 01/14/17 14:30 01/28/17 14:29 01/16/17 09:05 2 MG Fentanyl Citrate (Fentanyl Inj) 75 mcg Q2H PRN IV 01/14/17 20:15 01/28/17 20:14 01/16/17 01:00 75 MCG Bacitracin (Bacitracin Oint) 1 appln BID EXT 01/15/17 09:00 02/14/17 08:59 01/16/17 07:19 1 APPLN Vancomycin HCl 1500 mg/Sodium Chloride 530 ml @ 200 mls/hr Q8H IV 01/15/17 10:00 01/23/17 17:59 01/16/17 09:34 200 MLS/HR Metoprolol Tartrate (Lopressor Iv) 5 mg Q4H PRN IV 01/15/17 13:45 02/14/17 13:44 01/15/17 15:26 5 MG Potassium Chloride (Klor-Con M10) 10 meq BID PO 01/16/17 21:00 02/15/17 20:59 Vital Signs: Date Time Temp Pulse Resp B/P (MAP) Pulse Ox O2 Delivery O2 Flow Rate FiO2 01/16/17 10:00 36.9 97 24 133/79 (97) 91 Room Air 01/16/17 08:00 91 Room Air 01/16/17 07:25 72 22 92 01/16/17 06:02 102 27 122/87 (99) 91 01/16/17 05:02 89 15 105/65 (78) 93 01/16/17 04:02 37.0 97 25 120/74 (89) 94 Nasal Cannula 2.0 01/16/17 04:00 95 Nasal Cannula 2.0 01/16/17 03:02 97 8 109/75 (86) 92 Nasal Cannula 2.0 01/16/17 02:02 88 21 114/68 (83) 98 Nasal Cannula 2.0 01/16/17 01:56 86 18 95 Nasal Cannula 2.0 01/16/17 01:02 92 26 112/76 (88) 94 Nasal Cannula 2.0 01/16/17 00:02 90 22 98/69 (79) 92 Nasal Cannula 2.0 01/15/17 23:59 91 Nasal Cannula 2.0 01/15/17 23:02 95 23 109/75 (86) 91 Nasal Cannula 2.0 01/15/17 22:02 93 17 106/65 (79) 94 Nasal Cannula 2.0 01/15/17 21:02 96 16 99/69 (79) 93 Nasal Cannula 2.0 01/15/17 20:02 36.8 104 23 121/80 (94) 94 Nasal Cannula 2.0 01/15/17 20:00 92 Room Air 01/15/17 19:49 96 23 124/84 (97) 95 Nasal Cannula 2.0 01/15/17 19:37 95 16 89 Room Air 01/15/17 18:08 103 16 136/83 (100) 92 Room Air 01/15/17 16:55 99 32 92 01/15/17 16:50 99 21 91 01/15/17 16:45 97 29 92 01/15/17 16:40 95 27 91 01/15/17 16:35 98 24 92 01/15/17 16:30 97 25 91 01/15/17 16:25 100 25 91 01/15/17 16:20 97 25 91 01/15/17 16:15 89 21 91 01/15/17 16:10 91 19 89 01/15/17 16:05 99 26 90 01/15/17 16:02 100 21 113/74 (87) 01/15/17 15:50 92 28 92 01/15/17 15:47 93 22 108/74 (85) 92 01/15/17 15:45 101 19 92 01/15/17 15:45 93 Nasal Cannula 2.0 01/15/17 15:44 36.7 90 21 97/67 (77) 94 2.0 01/15/17 15:40 36.7 87 20 86/64 (71) 93 2.0 01/15/17 15:32 36.7 111 16 110/65 (80) 90 2.0 01/15/17 15:26 111 116/66 01/15/17 15:00 36.7 110 18 116/66 (83) 91 01/15/17 14:10 95 16 90 Room Air 01/15/17 13:02 96 24 126/79 (95) 91 01/15/17 13:00 97 20 90 01/15/17 13:00 36.8 96 18 126/79 (95) 92 01/15/17 12:45 101 24 127/84 (98) 01/15/17 12:00 94 21 90 01/15/17 11:43 91 Room Air 01/15/17 11:00 100 19 91 Laboratory Results: Last 24 Hours Test 01/16/17 05:00 White Blood Count 13.28 K/uL Red Blood Count 3.65 M/uL Hemoglobin 10.8 g/dL Hematocrit 34.3 % Mean Corpuscular Volume 94.0 fL Mean Corpuscular Hemoglobin 29.6 pg Mean Corpuscular Hemoglobin Concent 31.5 g/dl RDW Standard Deviation 55.1 fL RDW Coefficient of Variation 15.9 % Platelet Count 130 K/uL Mean Platelet Volume 9.7 fL Sodium Level 145 mmol/L Potassium Level 3.6 mmol/L Chloride Level 113 mmol/L Carbon Dioxide Level 25 mmol/L Anion Gap 7.0 mmol/L Blood Urea Nitrogen 13 mg/dl Creatinine 0.99 mg/dl Est Creatinine Clear Calc Drug Dose 105.3 ml/min Estimated GFR () 103.2 Estimated GFR (Non- 89.1 BUN/Creatinine Ratio 13.5 Random Glucose 117 mg/dl Calcium Level 7.7 mg/dl Phosphorus Level 2.2 mg/dl Thyroid Stimulating Hormone (TSH) 7.430 uIu/ml
[2017-01-16] MEDS ORDERED: BISACODYL 5 MG TABEC PO ONE (10:45)
[2017-01-16] MEDS: OXYCODONE/ACETAMINOPHEN 5-325 TAB PO PRN ×2 (12:29→19:55)
--- NOTE | 2017-01-16 14:24 | Infectious Disease Progress Nt ---
Progress Note Date of Service Jan 16, 2017. Subjective Pt evaluation today including: conversation w/ patient, physical exam, chart review, lab review, review of studies, conversation w/ reimbursement consultant, review of inpatient medication list Patient feeling better, ambulating in hallway. Remains afebrile, hemodynamically stable. Tolerating antibiotics without apparent difficulty. Cultures from OR are growing E coli, 2 strains, Enterococcus, and anaerobes. All Other Systems: Reviewed and Negative Medications Current Inpatient Medications Medications (Trade) Dose Ordered Sig/Luis Fernando Route Start Time Stop Time Status Last Admin Dose Admin Ioversol (Optiray 320) 100 ml UD PRN IV 01/13/17 08:15 01/17/17 08:14 Ondansetron HCl (Zofran Inj) 4 mg Q4H PRN IV 01/13/17 15:45 02/12/17 15:44 Acetaminophen (Tylenol Tab) 650 mg Q6H PRN PO 01/13/17 15:45 02/12/17 15:44 Pantoprazole Sodium 40 mg/ Syringe 10 ml @ 5 mls/min DAILY@ IV 01/13/17 21:00 02/12/17 20:59 01/16/17 09:27 5 MLS/MIN Enalaprilat 2.5 mg/Dextrose 27 ml @ 100 mls/hr Q12 IV 01/14/17 09:00 02/13/17 08:59 01/16/17 09:28 100 MLS/HR Piperacillin Sod/ Tazobactam Sod (Consult) 1 ea UD PRN N/A 01/13/17 18:10 02/12/17 18:09 Vancomycin HCl (Consult) 1 ea UD PRN N/A 01/13/17 18:09 02/12/17 18:08 Ipratropium [place] (Atrovent 0.02% 0.5MG/2.5ML Neb) 0.5 mg Q6R INH 01/13/17 21:00 02/12/17 20:59 01/16/17 07:25 0.5 MG Levalbuterol (Xopenex 1.25MG/ 0.5ML Neb) 1.25 mg Q6R INH 01/13/17 21:00 02/12/17 20:59 01/16/17 07:25 1.25 MG Piperacillin Sod/ Tazobactam Sod 4.5 gm/Dextrose 120 ml @ 30 mls/hr Q8@0400,1200,2000 IV 01/14/17 04:00 01/23/17 19:59 01/16/17 11:41 30 MLS/HR Enoxaparin Sodium (Lovenox Inj) 40 mg QAM SQ 01/15/17 09:00 02/14/17 08:59 01/16/17 09:29 40 MG Hydromorphone HCl (Dilaudid Inj) 1.5 mg Q3H PRN IV 01/14/17 15:45 01/27/17 15:44 Hydromorphone HCl (Dilaudid Inj) 2 mg Q3H PRN IV 01/14/17 14:30 01/28/17 14:29 01/16/17 14:09 2 MG Fentanyl Citrate (Fentanyl Inj) 75 mcg Q2H PRN IV 01/14/17 20:15 01/28/17 20:14 01/16/17 11:13 75 MCG Bacitracin (Bacitracin Oint) 1 appln BID EXT 01/15/17 09:00 02/14/17 08:59 01/16/17 07:19 1 APPLN Vancomycin HCl 1500 mg/Sodium Chloride 530 ml @ 200 mls/hr Q8H IV 01/15/17 10:00 01/23/17 17:59 01/16/17 09:34 200 MLS/HR Potassium Chloride (Klor-Con M10) 10 meq BID PO 01/16/17 21:00 02/15/17 20:59 Oxycodone/ Acetaminophen (Percocet 5-325mg Tab) 1 tab Q4H PRN PO 01/16/17 10:30 01/30/17 10:29 01/16/17 12:29 1 TAB Levothyroxine Sodium (Synthroid Tab) 200 mcg DAILYBB PO 01/17/17 06:00 02/16/17 05:59 Objective Vital Signs Date Time Temp Pulse Resp B/P (MAP) Pulse Ox O2 Delivery O2 Flow Rate FiO2 01/16/17 12:30 Room Air 01/16/17 12:20 36.7 91 18 134/91 (105) 92 01/16/17 11:55 36.9 97 24 92 2.0 01/16/17 11:46 92 Room Air 01/16/17 10:00 36.9 97 24 133/79 (97) 91 Room Air 01/16/17 08:00 91 Room Air 01/16/17 07:25 72 22 92 01/16/17 06:02 102 27 122/87 (99) 91 01/16/17 05:02 89 15 105/65 (78) 93 01/16/17 04:02 37.0 97 25 120/74 (89) 94 Nasal Cannula 2.0 01/16/17 04:00 95 Nasal Cannula 2.0 01/16/17 03:02 97 8 109/75 (86) 92 Nasal Cannula 2.0 01/16/17 02:02 88 21 114/68 (83) 98 Nasal Cannula 2.0 01/16/17 01:56 86 18 95 Nasal Cannula 2.0 01/16/17 01:02 92 26 112/76 (88) 94 Nasal Cannula 2.0 01/16/17 00:02 90 22 98/69 (79) 92 Nasal Cannula 2.0 01/15/17 23:59 91 Nasal Cannula 2.0 01/15/17 23:02 95 23 109/75 (86) 91 Nasal Cannula 2.0 01/15/17 22:02 93 17 106/65 (79) 94 Nasal Cannula 2.0 01/15/17 21:02 96 16 99/69 (79) 93 Nasal Cannula 2.0 01/15/17 20:02 36.8 104 23 121/80 (94) 94 Nasal Cannula 2.0 01/15/17 20:00 92 Room Air 01/15/17 19:49 96 23 124/84 (97) 95 Nasal Cannula 2.0 01/15/17 19:37 95 16 89 Room Air 01/15/17 18:08 103 16 136/83 (100) 92 Room Air 01/15/17 16:55 99 32 92 01/15/17 16:50 99 21 91 01/15/17 16:45 97 29 92 01/15/17 16:40 95 27 91 01/15/17 16:35 98 24 92 01/15/17 16:30 97 25 91 01/15/17 16:25 100 25 91 01/15/17 16:20 97 25 91 01/15/17 16:15 89 21 91 01/15/17 16:10 91 19 89 01/15/17 16:05 99 26 90 01/15/17 16:02 100 21 113/74 (87) 01/15/17 15:50 92 28 92 01/15/17 15:47 93 22 108/74 (85) 92 01/15/17 15:45 101 19 92 01/15/17 15:45 93 Nasal Cannula 2.0 01/15/17 15:44 36.7 90 21 97/67 (77) 94 2.0 01/15/17 15:40 36.7 87 20 86/64 (71) 93 2.0 01/15/17 15:32 36.7 111 16 110/65 (80) 90 2.0 01/15/17 15:26 111 116/66 01/15/17 15:00 36.7 110 18 116/66 (83) 91 Physical Exam General Appearance: WD/WN, no apparent distress Eyes: normal inspection, EOMI, sclerae normal ENT: normal ENT inspection, pharynx normal Neck: supple, no adenopathy, trachea midline Respiratory/Chest: lungs clear, normal breath sounds, no respiratory distress Cardiovascular: regular rate, rhythm, no gallop, no murmur Abdomen: normal bowel sounds, non tender, soft, no organomegaly Extremities: non-tender, no calf tenderness Neurologic/Psychiatric: alert, oriented x 3 Skin: normal color, no rash, + pertinent finding (Surgical dressing intact) Lymphatic: no adenopathy Laboratory Results RUN DATE: 01/16/17 [facility] PAGE 1 RUN TIME: 1226 Specimen Inquiry PATIENT: ERICKA SHEPPARD LOC: TAMANNA # : [id number] AGE/SX: 51/M ROOM: E107 REG : 01/13/[address]: Nacho Whitten MD : 1965 BED: 1 DIS : STATUS: ADM IN TLOC: SPEC #: [id number] DENNIS: 01/13/17-UNK STATUS: RES REQ #: [id number] RECD: 01/13/[address]: Naveen Cavazos DO SOURCE: PER FLD ENTR: 01/13/[address]: Kate Mccrary, PA-C SPDESC: Tc Desouza Jr,Whit.ONacho Lopez MD ORDERED: AER/GIOVANI CULTSMR Procedure Result Verified Site GRAM STAIN Final 01/14/17-1041 Test not performed OR AER/GIOVANI CULT Preliminary 01/16/17-1226 Organism 1 ESCHERICHIA COLI QUANITY RARE SENS SENSITIVITY TO FOLLOW Organism 2 ESCHERICHIA COLI#2 QUANITY RARE SENS SENSITIVITY TO FOLLOW Organism 3 ENTEROCOCCUS SPECIES QUANITY RARE SENS SENSITIVITY TO FOLLOW Organism 4 ANAEROBIC GRAM NEGATIVE BACILL QUANITY FEW SENS NO SENSITIVITY TO FOLLOW E COLI E COLI#2 M.I.C. RX M.I.C. RX --------- ------ --------- ------ TRIMET/SULFA >2/38 R <=2/38 S AMPICILLIN >16 R <=8 S AMPICILLIN/SUL 16/8 I <=8/4 S CEFAZOLIN <=8 S <=8 S CEFOTAXIME <=2 S <=2 S CEFTRIAXONE <=1 S <=1 S CEFEPIME <=4 S <=4 S CEFUROXIME <=4 S <=4 S IMIPENEM <=1 S <=1 S GENTAMICIN >8 R <=4 S TOBRAMYCIN >8 R <=4 S AMIKACIN <=16 S <=16 S CIPROFLOXACIN >2 R <=1 S LEVOFLOXACIN >4 R <=2 S ERTAPENEM <=1 S <=1 S PIP/TAZO <=16 S <=16 S CONTINUED ON NEXT PAGE RUN DATE: 01/16/17 [facility] LAB PAGE 2 RUN TIME: 1226 Specimen Inquiry SPEC: [id number] PATIENT: ERICKA SHEPPARD [id number] ( Continued) Procedure Result Verified Site OR AER/GIOVANI CULT Preliminary (continued) 01/16/17-1226 1. ESCHERICHIA COLI Target Route Dose RX AB Cost M.I.C. IQ ------ ----- ------ -- ------ -------- - ------ TRIMET/SULFA R >2/38 AMPICILLIN R >16 AMPICILLIN/SUL I 16/8 CEFAZOLIN S <=8 CEFOTAXIME S <=2 CEFTRIAXONE S <=1 CEFEPIME S <=4 CEFUROXIME S <=4 IMIPENEM S <=1 GENTAMICIN R >8 TOBRAMYCIN R >8 AMIKACIN S <=16 CIPROFLOXACIN R >2 LEVOFLOXACIN R >4 ERTAPENEM S <=1 PIP/TAZO S <=16 2. ESCHERICHIA COLI#2 Target Route Dose RX AB Cost M.I.C. IQ ------ ----- ------ -- ------ -------- - ------ TRIMET/SULFA S <=2/38 AMPICILLIN S <=8 AMPICILLIN/SUL S <=8/4 CEFAZOLIN S <=8 CEFOTAXIME S <=2 CEFTRIAXONE S <=1 CEFEPIME S <=4 CEFUROXIME S <=4 IMIPENEM S <=1 GENTAMICIN S <=4 TOBRAMYCIN S <=4 AMIKACIN S <=16 CIPROFLOXACIN S <=1 LEVOFLOXACIN S <=2 ERTAPENEM S <=1 PIP/TAZO S <=16 S = SENSITIVE I = INTERMEDIATE R = RESISTANT END OF REPORT Last 24 Hours Test 01/16/17 05:00 White Blood Count 13.28 K/uL Red Blood Count 3.65 M/uL Hemoglobin 10.8 g/dL Hematocrit 34.3 % Mean Corpuscular Volume 94.0 fL Mean Corpuscular Hemoglobin 29.6 pg Mean Corpuscular Hemoglobin Concent 31.5 g/dl RDW Standard Deviation 55.1 fL RDW Coefficient of Variation 15.9 % Platelet Count 130 K/uL Mean Platelet Volume 9.7 fL Sodium Level 145 mmol/L Potassium Level 3.6 mmol/L Chloride Level 113 mmol/L Carbon Dioxide Level 25 mmol/L Anion Gap 7.0 mmol/L Blood Urea Nitrogen 13 mg/dl Creatinine 0.99 mg/dl Est Creatinine Clear Calc Drug Dose 105.3 ml/min Estimated GFR () 103.2 Estimated GFR (Non- 89.1 BUN/Creatinine Ratio 13.5 Random Glucose 117 mg/dl Calcium Level 7.7 mg/dl Phosphorus Level 2.2 mg/dl Thyroid Stimulating Hormone (TSH) 7.430 uIu/ml Assessment and Plan 51-year-old male with sepsis and peritonitis from incarcerated hernia and sigmoid colon perforation now status post emergency repair. Cultures with E coli, Enterococcus, and anaerobes, so combination of vancomycin and Zosyn should provide adequate coverage. Will likely require in the range of 7 days of IV therapy. Will follow.
--- NOTE | 2017-01-16 16:55 | ECHOCARDIOGRAM REPORT ---
*NOTICE TO RECEIVING REPUBLICAN AGENCY This information is strictly Confidential and protected under [place] law. [place] law prohibits you from making any further disclosure of this information unless further disclosure is expressly permitted by the written consent of the person to whom it pertains or is authorized by law. A general authorization for the release of medical or other information is not sufficient for this purpose. Hospital accepts no responsibility if the information is made available to any other person, INCLUDING THE PATIENT. Interpretation Summary * Name: ERICKA SHEPPARD Study Date: 01/16/2017 07:00 AM BP: 122/87 mmHg * [facility] HR: 72 * : 1965 (M/d/yyyy) Gender: Male Height: 70 in * Age: 51 yrs Ethnicity: [place] Weight: 213 lb * Ordering Physician: Luís Del Valle * Referring Physician: Self, Referred * Performed By: Summer Whitfield RDCS * * Reason For Study: ? CARDIAC ASTHMA * BSA: 2.1 m2 * -- Conclusions -- * 1. Normal LV size. Mild concentric LVH. * 2. Normal LV systolic function. LVEF 55-60 %. * 3. Borderline RV enlargement, normal RV function. * 4. Bicuspid aortic valve. No significant aortic stenosis or regurgitation. 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 * 6. Compared with prior study on 09/02/2011: Aortic root slightly enlarged. Procedure Details * A complete two-dimensional transthoracic echocardiogram was performed (2D, M-mode, Doppler and color flow Doppler). Left Ventricle * The left ventricle is borderline dilated. * There is mild concentric left ventricular hypertrophy. * Ejection Fraction = 55-60%. * Paradoxical septal motion is consistent with right ventricular volume overload. Right Ventricle * Borderline right ventricular enlargement. * The right ventricular systolic function is normal as assessed by tricuspid annular plane systolic excursion (TAPSE) (normal >1.5 cm). Atria * The left atrial size is normal. * Right atrial size is normal. * No ASD detected; PFO is not assessed. Mitral Valve * The mitral valve is grossly normal. * Mitral stenosis is absent. * Significant mitral regurgitation is absent. Tricuspid Valve * The tricuspid valve is not well visualized, but is grossly normal. * There is no tricuspid stenosis. * Significant tricuspid regurgitation is absent. * Right ventricular systolic pressure is normal. Aortic Valve * The aortic valve is bicuspid. * No hemodynamically significant valvular aortic stenosis. * There is no significant aortic regurgitation. Pulmonic Valve * The pulmonary valve is inadequately visualized, but the Doppler data is adequate for interpretation. * Pulmonic stenosis is absent. * There is no significant pulmonary regurgitation. Great Vessels * Mild aortic root dilatation. Pericardium/Pleural * There is no pericardial effusion. Great Vessels * IVC < 2.1, < 50% change with respiration. Est RA 8 mmHg. MMode 2D Measurements and Calculations IVSd 1.4 cm IVSs 1.6 cm LVIDd 5.6 cm LVIDs 3.9 cm LVPWd 1.2 cm LVPWs 1.9 cm IVS/LVPW 1.2 FS 29.5 % EDV(Teich) 152.1 ml ESV(Teich) 67.1 ml EF(Teich) 55.9 % EDV(cubed) 173.3 ml ESV(cubed) 60.6 ml EF(cubed) 65.0 % % IVS thick 17.1 % % LVPW thick 64.0 % LV mass(C)d 301.3 grams LV mass(C)dI 140.5 grams/m\S\2 LV mass(C)s 295.0 grams LV mass(C)sI 137.6 grams/m\S\2 SV(Teich) 85.1 ml SI(Teich) 39.7 ml/m\S\2 SV(cubed) 112.7 ml SI(cubed) 52.6 ml/m\S\2 Ao root diam 4.7 cm Ao root area 17.5 cm\S\2 LA dimension 3.4 cm LA/Ao 0.71 LVAd ap4 34.6 cm\S\2 LVLd ap4 8.6 cm EDV(MOD-sp4) 114.3 ml EDV(sp4-el) 118.0 ml LVAs ap4 21.9 cm\S\2 LVLs ap4 7.5 cm ESV(MOD-sp4) 55.9 ml ESV(sp4-el) 54.1 ml EF(MOD-sp4) 51.1 % EF(sp4-el) 54.1 % LVAd ap2 38.8 cm\S\2 LVLd ap2 8.6 cm EDV(MOD-sp2) 147.2 ml EDV(sp2-el) 148.2 ml LVAs ap2 25.2 cm\S\2 LVLs ap2 7.8 cm ESV(MOD-sp2) 73.1 ml ESV(sp2-el) 69.2 ml EF(MOD-sp2) 50.3 % EF(sp2-el) 53.3 % LVLd %diff -0.09 % EDV(MOD-bp) 129.9 ml LVLs %diff 3.7 % ESV(MOD-bp) 63.4 ml EF(MOD-bp) 51.2 % SV(MOD-sp4) 58.4 ml SI(MOD-sp4) 27.2 ml/m\S\2 SV(MOD-sp2) 74.1 ml SI(MOD-sp2) 34.5 ml/m\S\2 SV(MOD-bp) 66.5 ml SI(MOD-bp) 31.0 ml/m\S\2 SV(sp4-el) 63.9 ml SI(sp4-el) 29.8 ml/m\S\2 SV(sp2-el) 79.0 ml SI(sp2-el) 36.9 ml/m\S\2 Doppler Measurements and Calculations MV E max pauline 100.4 cm/sec MV A max pauline 102.3 cm/sec MV E/A 0.98 MV dec time 0.35 sec Ao V2 max 164.0 cm/sec Ao max PG 10.8 mmHg Ao max PG (full) 5.7 mmHg LV V1 max PG 5.1 mmHg LV V1 max 112.7 cm/sec
[2017-01-16] MEDS ORDERED: VANCOMYCIN TROUGH SCH (17:30)
[2017-01-16] MEDS ORDERED: NURSING VERBAL MED ORDER ONE (18:15)
[2017-01-16] MEDS: POTASSIUM CHLORIDE 10 MEQ TABCR PO SCH (20:51)
[2017-01-17] VITALS (8 sets, daily range): BP systolic 125–136; BP diastolic 81–89; PULSE 67–91; TEMP 36.7–37; O2SAT 91–95
[2017-01-17] MEDS: VANCOMYCIN INJ 1,500 MG in SODIUM CHLORIDE 0.9% 500ML 500 ML IV SCH ×3 (01:30→18:14)
[2017-01-17] MEDS: HYDROmorphone INJ 2 MG/ML SYR/VIAL IV PRN ×5 (02:09→19:22)
[2017-01-17] MEDS: IPRATROPIUM BROMIDE NEB SOLN 0.02% 2.5 ML VIAL INH SCH ×4 (02:22→19:10)
[2017-01-17] MEDS: LEVALBUTEROL 1.25MG/0.5ML NEB INH SCH ×4 (02:22→19:10)
[2017-01-17] MEDS: PIPERACILL/TAZOBAC IV 4.5 GM in DEXTROSE 5% 100ML 100 ML IV SCH ×3 (03:44→20:01)
[2017-01-17] MEDS: OXYCODONE/ACETAMINOPHEN 5-325 TAB PO PRN ×4 (04:47→21:56)
[2017-01-17 05:25] LABS: BASO % 0.2 %; BASO ABS # 0.03 K/uL (0-0.2); COMPLETE YES; EOS % 2.2 %; HEMATOCRIT 35.8 % (42-52); IG% 0.7 %; LYMPH % 7.8 %; LYMPH ABS # 1.01 K/uL (1.2-3.4); MEAN CELL VOLUME 94.7 fL (80-100); MEAN CORPUSCULAR HEMOGLOBIN 29.6 pg (25-34); MEAN CORPUSCULAR HGB CONC 31.3 g/dl (32-36); MEAN PLATELET VOLUME 9.6 fL (7.4-10.4); MONO % 10.9 %; NEUT % 78.2 %; PLATELET COUNT 158 K/uL (130-400); RED BLOOD COUNT 3.78 M/uL (4.7-6.1); WHITE BLOOD COUNT 12.95 K/uL (4.8-10.8)
[2017-01-17] MEDS: LEVOTHYROXINE 200 MCG TAB PO SCH (05:31)
[2017-01-17] MEDS ORDERED: LEVOTHYROXINE 100 MCG TAB PO SCH (06:00)
[2017-01-17] MEDS: BACITRACIN OINT 15 GM TUBE EXT SCH ×2 (09:00→21:13)
[2017-01-17] MEDS: POTASSIUM CHLORIDE 10 MEQ TABCR PO SCH (09:14)
[2017-01-17] MEDS: PANTOprazole INJ 40 MG in SYRINGE 0 ML IV SCH ×2 (09:14→21:13)
[2017-01-17] MEDS: ENALAPRILAT IV 2.5 MG in DEXTROSE 5% 25ML 25 ML IV SCH ×2 (09:19→21:13)
[2017-01-17] MEDS: ENOXAPARIN 40 MG/0.4 ML SYR SQ SCH (09:19)
[2017-01-17] MEDS ORDERED: BISACODYL 5 MG TABEC PO STA (13:28)
--- NOTE | 2017-01-17 13:32 | Surgery Progress Note ---
Surgery Progress Note Date of Service Jan 17, 2017. Subjective Post OP Day: 4 + feeling well, + bowel movement (in ostomy), + diet (clear liquids), No chest pain, No SOB, No nausea, No vomiting "pain not really controlled well with one Percocet" Objective Vital Signs: Date Time Temp Pulse Resp B/P (MAP) Pulse Ox O2 Delivery O2 Flow Rate FiO2 01/17/17 07:45 67 16 92 Room Air 01/17/17 07:30 36.7 83 14 128/89 (102) 91 Room Air 01/17/17 02:23 91 16 91 Room Air 01/16/17 23:28 37.1 91 16 114/75 (88) 94 Room Air 01/16/17 19:46 93 16 90 Room Air 01/16/17 19:45 Room Air 01/16/17 15:30 36.8 94 18 136/88 (104) 91 Room Air 01/16/17 14:24 76 14 92 Physical Exam: AYDIN drainage (serosanguineous) General Appearance: WD/WN, no apparent distress Head: normocephalic, atraumatic Neck: trachea midline Respiratory/Chest: no respiratory distress, no accessory muscle use Abdomen: non distended, soft, + tenderness (appropriate post op), + pertinent finding (ostomy present and brown liquid present) Incision(s): clean, dry (dressing clean and dry) Laboratory Results: Results Past 24 Hours Test 01/16/17 17:36 01/17/17 05:05 Range/Units Vancomycin Level Trough 18.6 SEE COMMENT mcg/ml White Blood Count 12.95 4.8-10.8 K/uL Red Blood Count 3.78 4.7-6.1 M/uL Hemoglobin 11.2 14.0-18.0 g/dL Hematocrit 35.8 42-52 % Mean Corpuscular Volume 94.7 80-100 fL Mean Corpuscular Hemoglobin 29.6 25-34 pg Mean Corpuscular Hemoglobin Concent 31.3 32-36 g/dl Platelet Count 158 130-400 K/uL Mean Platelet Volume 9.6 7.4-10.4 fL Neutrophils (%) (Auto) 78.2 % Lymphocytes (%) (Auto) 7.8 % Monocytes (%) (Auto) 10.9 % Eosinophils (%) (Auto) 2.2 % Basophils (%) (Auto) 0.2 % Neutrophils # (Auto) 10.13 1.4-6.5 K/uL Lymphocytes # (Auto) 1.01 1.2-3.4 K/uL Monocytes # (Auto) 1.41 0.11-0.59 K/uL Eosinophils # (Auto) 0.28 0-0.5 K/uL Basophils # (Auto) 0.03 0-0.2 K/uL RDW Standard Deviation 56.7 36.4-46.3 fL RDW Coefficient of Variation 16.4 11.5-14.5 % Immature Granulocyte % (Auto) 0.7 % Immature Granulocyte # (Auto) 0.09 0.00-0.02 K/uL Assessment & Plan POD # 4 s/p Exploratory Laparotomy; Sigmoid Colon Resection, Creation Greg Pouch, Colostomy, and primary Repair Right Inguinal Hernia -vitals stable - Leukocytosis decreased to 12.95 (yesterday 13.8) - ostomy output- liquid stool - pain somewhat controlled - adequate urine output Plan: Continue PO Percocet (will change to 1-2 tabs Q4H prn pain) and breakthrough Dilaudid Continue incentive spirometry Continue IV fluids and Clear liquids Dulcolax tab 5 mg PO one time Continue IV antibiotics Continue home meds encourage ambulation Continue AYDIN drain to bulb suction repeat am labs stop oral potassium Appreciate ID recs Dr. Whitten has seen and examined patient, agrees with above.
[2017-01-18] VITALS (9 sets, daily range): BP systolic 122–142; BP diastolic 82–89; PULSE 78–87; TEMP 36.7–36.9; O2SAT 91–98
[2017-01-18] MEDS: HYDROmorphone INJ 2 MG/ML SYR/VIAL IV PRN ×7 (00:26→23:31)
[2017-01-18] MEDS ORDERED: VANCOMYCIN TROUGH ONE (01:30)
[2017-01-18] MEDS: VANCOMYCIN INJ 1,500 MG in SODIUM CHLORIDE 0.9% 500ML 500 ML IV SCH (02:04)
[2017-01-18] MEDS: IPRATROPIUM BROMIDE NEB SOLN 0.02% 2.5 ML VIAL INH SCH ×3 (03:07→14:17)
[2017-01-18] MEDS: LEVALBUTEROL 1.25MG/0.5ML NEB INH SCH ×3 (03:07→14:17)
[2017-01-18] MEDS: PIPERACILL/TAZOBAC IV 4.5 GM in DEXTROSE 5% 100ML 100 ML IV SCH ×3 (04:01→19:49)
[2017-01-18] MEDS: LEVOTHYROXINE 200 MCG TAB PO SCH (05:31)
[2017-01-18 07:17] LABS: HEMATOCRIT 36.2 % (42-52); MEAN CELL VOLUME 94.8 fL (80-100); MEAN CORPUSCULAR HEMOGLOBIN 29.6 pg (25-34); MEAN CORPUSCULAR HGB CONC 31.2 g/dl (32-36); MEAN PLATELET VOLUME 9.1 fL (7.4-10.4); PLATELET COUNT 156 K/uL (130-400); RED BLOOD COUNT 3.82 M/uL (4.7-6.1); WHITE BLOOD COUNT 9.99 K/uL (4.8-10.8)
[2017-01-18 07:58] LABS: BUN/CREATININE RATIO 12.8 (10-20); CALCIUM 8.4 mg/dl (8.5-10.1); CREATININE 1.2 mg/dl (0.60-1.40); MAGNESIUM 2.6 mg/dl (1.8-2.4); POTASSIUM 3.5 mmol/L (3.5-5.1)
[2017-01-18 08:10] LABS: PHOSPHORUS 3.6 mg/dl (2.5-4.9)
[2017-01-18] MEDS: BACITRACIN OINT 15 GM TUBE EXT SCH ×2 (08:58→21:34)
[2017-01-18] MEDS: ENALAPRILAT IV 2.5 MG in DEXTROSE 5% 25ML 25 ML IV SCH ×2 (08:58→21:34)
[2017-01-18] MEDS: PANTOprazole INJ 40 MG in SYRINGE 0 ML IV SCH ×2 (08:58→21:34)
[2017-01-18] MEDS: ENOXAPARIN 40 MG/0.4 ML SYR SQ SCH (08:59)
[2017-01-18] MEDS: OXYCODONE/ACETAMINOPHEN 5-325 TAB PO PRN ×2 (09:06→18:17)
--- NOTE | 2017-01-18 09:25 | Surgery Progress Note ---
Surgery Progress Note Date of Service Jan 18, 2017. Subjective Post OP Day: 5 + feeling well, + ambulating, + pain controlled, + diet (tolerating clear liquids), No complaints, No chest pain, No SOB, No bowel movement, No flatus, No nausea, No vomiting do not see any stool in ostomy , nothing recorded Objective Vital Signs: Date Time Temp Pulse Resp B/P (MAP) Pulse Ox O2 Delivery O2 Flow Rate FiO2 01/18/17 08:23 93 Room Air 01/18/17 07:52 36.9 79 18 130/88 (102) 93 Room Air 01/18/17 07:19 78 16 92 Room Air 01/18/17 03:07 82 16 94 Room Air 01/18/17 00:20 Room Air 01/17/17 23:35 37.0 86 16 125/81 (96) 93 Room Air 01/17/17 21:18 90 129/84 (99) 01/17/17 19:10 85 24 95 Room Air 01/17/17 15:15 Room Air 01/17/17 15:10 36.7 67 18 136/84 (101) 91 Room Air 01/17/17 14:14 85 16 94 Room Air Physical Exam: AYDIN drainage (serous) General Appearance: WD/WN, no apparent distress Head: normocephalic, atraumatic Neck: trachea midline Respiratory/Chest: no respiratory distress, no accessory muscle use Abdomen: non distended, soft, + tenderness (appropriate post op at midline incision and right inguinal incision), + pertinent finding (LLQ ostomy, pink with serous drainage in bag, no stool present) Incision(s): clean, dry, intact, no erythema, drainage (serous drainage from midline incision), findings (there is a bullae skin blister just above ostomy from tape) Extremities: no pedal edema Laboratory Results: Results Past 24 Hours Test 01/18/17 01:45 01/18/17 07:06 Range/Units Vancomycin Level Trough 26.2 SEE COMMENT mcg/ml White Blood Count 9.99 4.8-10.8 K/uL Red Blood Count 3.82 4.7-6.1 M/uL Hemoglobin 11.3 14.0-18.0 g/dL Hematocrit 36.2 42-52 % Mean Corpuscular Volume 94.8 80-100 fL Mean Corpuscular Hemoglobin 29.6 25-34 pg Mean Corpuscular Hemoglobin Concent 31.2 32-36 g/dl RDW Standard Deviation 57.5 36.4-46.3 fL RDW Coefficient of Variation 16.5 11.5-14.5 % Platelet Count 156 130-400 K/uL Mean Platelet Volume 9.1 7.4-10.4 fL Sodium Level 146 136-145 mmol/L Potassium Level 3.5 3.5-5.1 mmol/L Chloride Level 113 98-107 mmol/L Carbon Dioxide Level 25 21-32 mmol/L Anion Gap 8.0 3-11 mmol/L Blood Urea Nitrogen 15 7-18 mg/dl Creatinine 1.20 0.60-1.40 mg/dl Est Creatinine Clear Calc Drug Dose 87.7 ml/min Estimated GFR () 81.8 Estimated GFR (Non- 70.6 BUN/Creatinine Ratio 12.8 10-20 Random Glucose 112 70-99 mg/dl Calcium Level 8.4 8.5-10.1 mg/dl Phosphorus Level 3.6 2.5-4.9 mg/dl Magnesium Level 2.6 1.8-2.4 mg/dl Assessment & Plan POD # 5 s/p Exploratory Laparotomy; Sigmoid Colon Resection, Creation Greg Pouch, Colostomy, and primary Repair Right Inguinal Hernia - vitals stable - Leukocytosis resolved - ostomy output- serous - pain controlled - adequate urine output Plan: Continue PO Percocet (1-2 tabs Q4H prn pain) and breakthrough Dilaudid Continue incentive spirometry Continue IV fluids and Clear liquids Continue IV antibiotics Continue home meds continue ambulation Continue AYDIN drain to bulb suction repeat am labs Appreciate ID recs Bacitracin to incision and blister BID Dr. Whitten has seen and examined patient, agrees with above
--- NOTE | 2017-01-18 20:28 | Infectious Disease Progress Nt ---
Progress Note Date of Service Jan 18, 2017. Subjective Pt evaluation today including: conversation w/ patient, physical exam, chart review, lab review, review of studies, conversation w/ architectural sales consultant, review of inpatient medication list Offers no new complaints today. Pain control. Remains afebrile. Tolerating antibiotics without apparent difficulty. All Other Systems: Reviewed and Negative Medications Current Inpatient Medications Medications (Trade) Dose Ordered Sig/Luis Fernando Route Start Time Stop Time Status Last Admin Dose Admin Ondansetron HCl (Zofran Inj) 4 mg Q4H PRN IV 01/13/17 15:45 02/12/17 15:44 Acetaminophen (Tylenol Tab) 650 mg Q6H PRN PO 01/13/17 15:45 02/12/17 15:44 01/17/17 08:04 650 MG Pantoprazole Sodium 40 mg/ Syringe 10 ml @ 5 mls/min DAILY@,21 IV 01/13/17 21:00 02/12/17 20:59 01/18/17 08:58 5 MLS/MIN Enalaprilat 2.5 mg/Dextrose 27 ml @ 100 mls/hr Q12 IV 01/14/17 09:00 02/13/17 08:59 01/18/17 08:58 100 MLS/HR Piperacillin Sod/ Tazobactam Sod (Consult) 1 ea UD PRN N/A 01/13/17 18:10 02/12/17 18:09 Ipratropium [place] (Atrovent 0.02% 0.5MG/2.5ML Neb) 0.5 mg Q6R INH 01/13/17 21:00 02/12/17 20:59 01/18/17 14:17 0.5 MG Levalbuterol (Xopenex 1.25MG/ 0.5ML Neb) 1.25 mg Q6R INH 01/13/17 21:00 02/12/17 20:59 01/18/17 14:17 1.25 MG Piperacillin Sod/ Tazobactam Sod 4.5 gm/Dextrose 120 ml @ 30 mls/hr Q8@0400,1200,2000 IV 01/14/17 04:00 01/23/17 19:59 01/18/17 19:49 30 MLS/HR Enoxaparin Sodium (Lovenox Inj) 40 mg QAM SQ 01/15/17 09:00 02/14/17 08:59 01/18/17 08:59 40 MG Hydromorphone HCl (Dilaudid Inj) 1.5 mg Q3H PRN IV 01/14/17 15:45 01/27/17 15:44 Hydromorphone HCl (Dilaudid Inj) 2 mg Q3H PRN IV 01/14/17 14:30 01/28/17 14:29 01/18/17 20:18 2 MG Bacitracin (Bacitracin Oint) 1 appln BID EXT 01/15/17 09:00 02/14/17 08:59 01/18/17 08:58 1 APPLN Levothyroxine Sodium (Synthroid Tab) 200 mcg DAILYBB PO 01/17/17 06:00 02/16/17 05:59 01/18/17 05:31 200 MCG Oxycodone/ Acetaminophen (Percocet 5-325mg Tab) 1-2 tabs po every 4 hours ... Q4H PRN PO 01/17/17 14:30 01/30/17 10:29 01/18/17 18:17 2 TAB Objective Vital Signs Date Time Temp Pulse Resp B/P (MAP) Pulse Ox O2 Delivery O2 Flow Rate FiO2 01/18/17 15:40 Room Air 01/18/17 15:15 36.7 87 18 142/89 (106) 91 01/18/17 14:17 83 16 94 Room Air 01/18/17 12:16 36.8 81 16 132/82 (99) 95 Room Air 01/18/17 08:23 93 Room Air 01/18/17 07:52 36.9 79 18 130/88 (102) 93 Room Air 01/18/17 07:45 Room Air 01/18/17 07:19 78 16 92 Room Air 01/18/17 03:07 82 16 94 Room Air 01/18/17 00:20 Room Air 01/17/17 23:35 37.0 86 16 125/81 (96) 93 Room Air 01/17/17 21:18 90 129/84 (99) Physical Exam General Appearance: WD/WN, no apparent distress Eyes: normal inspection, sclerae normal ENT: normal ENT inspection, pharynx normal Neck: supple, no adenopathy, trachea midline Respiratory/Chest: lungs clear, normal breath sounds, no respiratory distress Cardiovascular: regular rate, rhythm, no gallop, no murmur Abdomen: normal bowel sounds, non tender, soft, no organomegaly Extremities: non-tender, no calf tenderness Neurologic/Psychiatric: alert, oriented x 3 Skin: normal color, no rash, + pertinent finding (small blister near ostomy site) Lymphatic: no adenopathy Laboratory Results RUN DATE: 01/18/17 [facility] PAGE 1 RUN TIME: 1427 Specimen Inquiry PATIENT: ERICKA SHEPPARD LOC: MAC U # : [id number] AGE/SX: 51/M ROOM: [facility] REG : 01/13/[address]: Nacho Whittne MD : [id number] BED: 1 DIS : STATUS: ADM IN TLOC: SPEC #: [id number] DENNIS: 01/13/17-ERICAK STATUS: SOTERO REQ #: [id number] RECD: 01/13/[address]: Naveen Cavazos DO SOURCE: PER FLD ENTR: 01/13/[address]: Kate Mccrary PA-C [facility]: Tc Desouza Jr,Nacho Hunt MD ORDERED: AER/GIOVANI CULTSMR Procedure Result Verified Site GRAM STAIN Final 01/17/17-1552 RESULT MANY WBCs SEEN MODERATE GRAM NEGATIVE BACILLI MODERATE GRAM POSITIVE BACILLI MODERATE GRAM POSITIVE COCCI OR AER/GIOVANI CULT Final 01/18/17-985 Organism 1 ESCHERICHIA COLI QUANITY RARE SENS SENSITIVITY TO FOLLOW Organism 2 ESCHERICHIA COLI#2 QUANITY RARE SENS SENSITIVITY TO FOLLOW Organism 3 ENTEROCOCCUS FAECIUM QUANITY RARE SENS SENSITIVITY TO FOLLOW Organism 4 BACTEROIDES VULGATUS QUANITY MODERATE SENS NO SENSITIVITY TO FOLLOW Organism 5 BACTEROIDES FRAGILIS QUANITY MODERATE SENS NO SENSITIVITY TO FOLLOW CONTINUED ON NEXT PAGE RUN DATE: 01/18/17 [facility] PAGE 2 RUN TIME: 0129 Specimen Inquiry SPEC: [id number] PATIENT: ERICKA SHEPPARD [id number] ( Continued) Procedure Result Verified Site OR AER/GIOVANI CULT Final (continued) 01/18/17-1427 E COLI E COLI#2 ET FAECIUM M.I.C. RX M.I.C. RX M.I.C. RX --------- ------ --------- ------ --------- ------ TRIMET/SULFA >2/38 R <=2/38 S AMPICILLIN >16 R <=8 S <=2 S AMPICILLIN/SUL 16/8 I <=8/4 S CEFAZOLIN <=8 S <=8 S CEFOTAXIME <=2 S <=2 S CEFTRIAXONE <=1 S <=1 S CEFEPIME <=4 S <=4 S CEFUROXIME <=4 S <=4 S IMIPENEM <=1 S <=1 S GENT SYNERGY <=500 S VANCOMYCIN 1 S PENICILLIN 2 S GENTAMICIN >8 R <=4 S TOBRAMYCIN >8 R <=4 S AMIKACIN <=16 S <=16 S CIPROFLOXACIN >2 R <=1 S LEVOFLOXACIN >4 R <=2 S ERTAPENEM <=1 S <=1 S DAPTOMYCIN 4 S PIP/TAZO <=16 S <=16 S STREP SYNERGY <=1000 S ENTEROCOCCUS FAECIUM: POSITIVE COMBO 33 Streptomycin Synergy Screen S Gentamicin Synergy Screen S 1. ESCHERICHIA COLI Target Route Dose RX AB Cost M.I.C. IQ ------ ----- ------ -- ------ -------- - ------ TRIMET/SULFA R >2/38 AMPICILLIN R >16 AMPICILLIN/SUL I 16/8 CEFAZOLIN S <=8 CEFOTAXIME S <=2 CEFTRIAXONE S <=1 CEFEPIME S <=4 CEFUROXIME S <=4 IMIPENEM S <=1 GENTAMICIN R >8 TOBRAMYCIN R >8 AMIKACIN S <=16 CIPROFLOXACIN R >2 LEVOFLOXACIN R >4 ERTAPENEM S <=1 PIP/TAZO S <=16 CONTINUED ON NEXT PAGE RUN DATE: 01/18/17 [facility] PAGE 3 RUN TIME: 1427 Specimen Inquiry SPEC: [id number] PATIENT: ERICKA SHEPPARD [id number] ( Continued) Procedure Result Verified Site OR AER/GIOVANI CULT Final (continued) 01/18/17-1427 2. ESCHERICHIA COLI#2 Target Route Dose RX AB Cost M.I.C. IQ ------ ----- ------ -- ------ -------- - ------ TRIMET/SULFA S <=238 AMPICILLIN S <=8 AMPICILLIN/SUL S <=8/4 CEFAZOLIN S <=8 CEFOTAXIME S <=2 CEFTRIAXONE S <=1 CEFEPIME S <=4 CEFUROXIME S <=4 IMIPENEM S <=1 GENTAMICIN S <=4 TOBRAMYCIN S <=4 AMIKACIN S <=16 CIPROFLOXACIN S <=1 LEVOFLOXACIN S <=2 ERTAPENEM S <=1 PIP/TAZO S <=16 3. ENTEROCOCCUS FAECIUM Target Route Dose RX AB Cost M.I.C. IQ ------ ----- ------ -- ------ -------- - ------ AMPICILLIN S <=2 GENT SYNERGY S <=500 VANCOMYCIN S 1 PENICILLIN S 2 DAPTOMYCIN S 4 STREP SYNERGY S <=1000 Streptomycin Synergy Screen S Gentamicin Synergy Screen S S = SENSITIVE I = INTERMEDIATE R = RESISTANT END OF REPORT Last 24 Hours Test 01/18/17 01:45 01/18/17 07:06 Vancomycin Level Trough 26.2 mcg/ml White Blood Count 9.99 K/uL Red Blood Count 3.82 M/uL Hemoglobin 11.3 g/dL Hematocrit 36.2 % Mean Corpuscular Volume 94.8 fL Mean Corpuscular Hemoglobin 29.6 pg Mean Corpuscular Hemoglobin Concent 31.2 g/dl RDW Standard Deviation 57.5 fL RDW Coefficient of Variation 16.5 % Platelet Count 156 K/uL Mean Platelet Volume 9.1 fL Sodium Level 146 mmol/L Potassium Level 3.5 mmol/L Chloride Level 113 mmol/L Carbon Dioxide Level 25 mmol/L Anion Gap 8.0 mmol/L Blood Urea Nitrogen 15 mg/dl Creatinine 1.20 mg/dl Est Creatinine Clear Calc Drug Dose 87.7 ml/min Estimated GFR () 81.8 Estimated GFR (Non- 70.6 BUN/Creatinine Ratio 12.8 Random Glucose 112 mg/dl Calcium Level 8.4 mg/dl Phosphorus Level 3.6 mg/dl Magnesium Level 2.6 mg/dl Assessment and Plan 51-year-old male with sepsis and peritonitis from incarcerated hernia and sigmoid colon perforation now status post emergency repair. Cultures with E coli, Enterococcus, and anaerobes, so combination of vancomycin and Zosyn should provide adequate coverage. Will likely require in the range of 7 days of IV therapy. Will follow.
[2017-01-18] MEDS: IPRATROPIUM BROMIDE HFA INHALER INH SCH (23:25)
[2017-01-18] MEDS: LEValbuterol HFA 15GM INHALER INH SCH (23:25)
[2017-01-19] MEDS: OXYCODONE/ACETAMINOPHEN 5-325 TAB PO PRN ×4 (02:35→21:39)
[2017-01-19] MEDS: PIPERACILL/TAZOBAC IV 4.5 GM in DEXTROSE 5% 100ML 100 ML IV SCH ×3 (04:06→19:59)
[2017-01-19] MEDS: HYDROmorphone INJ 2 MG/ML SYR/VIAL IV PRN ×5 (05:33→23:59)
[2017-01-19] MEDS: IPRATROPIUM BROMIDE HFA INHALER INH SCH ×4 (05:34→23:52)
[2017-01-19] MEDS: LEVOTHYROXINE 200 MCG TAB PO SCH (05:34)
[2017-01-19] MEDS: LEValbuterol HFA 15GM INHALER INH SCH ×4 (05:34→23:52)
[2017-01-19 06:08] LABS: HEMATOCRIT 38.2 % (42-52); MEAN CORPUSCULAR HEMOGLOBIN 29.1 pg (25-34); MEAN CORPUSCULAR HGB CONC 30.6 g/dl (32-36); MEAN PLATELET VOLUME 9.1 fL (7.4-10.4); PLATELET COUNT 173 K/uL (130-400); RED BLOOD COUNT 4.02 M/uL (4.7-6.1); WHITE BLOOD COUNT 10.28 K/uL (4.8-10.8)
[2017-01-19 06:45] VITALS: BP 124/82; PULSE 79; TEMP 36.8; O2SAT 92
[2017-01-19 06:50] LABS: BUN/CREATININE RATIO 12.1 (10-20); CALCIUM 8.2 mg/dl (8.5-10.1); CREATININE 1.4 mg/dl (0.60-1.40); POTASSIUM 3.6 mmol/L (3.5-5.1)
[2017-01-19] MEDS: PANTOprazole INJ 40 MG in SYRINGE 0 ML IV SCH ×2 (09:16→21:19)
[2017-01-19] MEDS: ENOXAPARIN 40 MG/0.4 ML SYR SQ SCH (09:17)
[2017-01-19] MEDS: BACITRACIN OINT 15 GM TUBE EXT SCH ×2 (09:17→21:19)
[2017-01-19] MEDS: ENALAPRILAT IV 2.5 MG in DEXTROSE 5% 25ML 25 ML IV SCH ×2 (09:32→21:19)
[2017-01-19] MEDS ORDERED: POTASSIUM CHLORIDE 10 MEQ TABCR PO STA (10:08)
--- NOTE | 2017-01-19 10:27 | Surgery Progress Note ---
Surgery Progress Note Date of Service Jan 19, 2017. Subjective Post OP Day: 5 + feeling well pt is doing fine, no C/O, he tolearted clear diet, colostomy working, Objective Vital Signs: Date Time Temp Pulse Resp B/P (MAP) Pulse Ox O2 Delivery O2 Flow Rate FiO2 01/19/17 06:45 36.8 79 18 124/82 (96) 92 Room Air 01/18/17 23:45 Room Air 01/18/17 22:58 36.9 83 18 122/84 (97) 93 Room Air 01/18/17 19:36 80 16 94 Room Air 01/18/17 15:40 Room Air 01/18/17 15:15 36.7 87 18 142/89 (106) 91 01/18/17 14:17 83 16 94 Room Air 01/18/17 12:16 36.8 81 16 132/82 (99) 95 Room Air General Appearance: WD/WN, no apparent distress Head: normocephalic Neck: supple, no JVD Respiratory/Chest: chest non-tender, lungs clear, normal breath sounds Cardiovascular: regular rate, rhythm, no edema, no gallop, no JVD Abdomen: normal bowel sounds, non tender, non distended, soft Incision(s): clean, dry, intact Extremities: normal range of motion, non-tender, normal inspection Laboratory Results: Results Past 24 Hours Test 01/19/17 05:36 Range/Units White Blood Count 10.28 4.8-10.8 K/uL Red Blood Count 4.02 4.7-6.1 M/uL Hemoglobin 11.7 14.0-18.0 g/dL Hematocrit 38.2 42-52 % Mean Corpuscular Volume 95.0 80-100 fL Mean Corpuscular Hemoglobin 29.1 25-34 pg Mean Corpuscular Hemoglobin Concent 30.6 32-36 g/dl RDW Standard Deviation 57.7 36.4-46.3 fL RDW Coefficient of Variation 16.4 11.5-14.5 % Platelet Count 173 130-400 K/uL Mean Platelet Volume 9.1 7.4-10.4 fL Sodium Level 145 136-145 mmol/L Potassium Level 3.6 3.5-5.1 mmol/L Chloride Level 112 98-107 mmol/L Carbon Dioxide Level 24 21-32 mmol/L Anion Gap 9.0 3-11 mmol/L Blood Urea Nitrogen 17 7-18 mg/dl Creatinine 1.40 0.60-1.40 mg/dl Est Creatinine Clear Calc Drug Dose 75.2 ml/min Estimated GFR () 67.9 Estimated GFR (Non- 58.6 BUN/Creatinine Ratio 12.1 10-20 Random Glucose 106 70-99 mg/dl Calcium Level 8.2 8.5-10.1 mg/dl Assessment & Plan IMP S/P Exp lap eliu procedure, repair right inguinal hernia,AYDIN X 1, I update information to pt and pt's family members about OR finding and the procedures pt had, they understood, I answered all questions, continue treatment I called ICU attending, repeat labs in am, ID consult, will F/U 01/14/2017 AYDIN minimal pt is doing better, continue treatment, will F/U 01/15/2017 pt is stable, good urine output, WBC 12,000 ID consult for sepsis repeat labs in am, continue iv antibiotic, will F/U 01/19/2017 doing fine, full liquid diet teaching change colostomy bag possible D/C home tomorrow, dressing change with bacitricin and 4x4 gouze once a day, pull out AYDIN tomorrow, will F/U 01/16/2017 D/C NG tube, clear diet, repeat labs in am, ID consult, transfer to surgical floor, will F/U full liquids IMP S/P Exp lap eliu procedure, repair right inguinal hernia,AYDIN X 1, I update information to pt and pt's family members about OR finding and the procedures pt had, they understood, I answered all questions, continue treatment I called ICU attending, repeat labs in am, ID consult, will F/U 01/14/2017 AYDIN minimal pt is doing better, continue treatment, will F/U 01/15/2017 pt is stable, good urine output, WBC 12,000 ID consult for sepsis repeat labs in am, continue iv antibiotic, will F/U 01/16/2017 D/C NG tube, clear diet, repeat labs in am, ID consult, transfer to surgical floor, will F/U
[2017-01-19 14:49] VITALS: BP 154/70; PULSE 70; TEMP 36.8; O2SAT 91
[2017-01-19] MEDS ORDERED: POTASSIUM CHLORIDE 10 MEQ TABCR PO SCH (21:00)
[2017-01-19 22:42] VITALS: BP 129/85; PULSE 73; TEMP 36.8; O2SAT 94
[2017-01-20] MEDS: PIPERACILL/TAZOBAC IV 4.5 GM in DEXTROSE 5% 100ML 100 ML IV SCH ×3 (03:34→20:41)
[2017-01-20] MEDS: OXYCODONE/ACETAMINOPHEN 5-325 TAB PO PRN ×3 (04:35→17:40)
[2017-01-20] MEDS: IPRATROPIUM BROMIDE HFA INHALER INH SCH ×4 (05:40→23:52)
[2017-01-20] MEDS: LEVOTHYROXINE 200 MCG TAB PO SCH (05:40)
[2017-01-20] MEDS: LEValbuterol HFA 15GM INHALER INH SCH ×4 (05:40→23:53)
[2017-01-20 07:50] VITALS: BP 139/89; PULSE 73; TEMP 36.9; O2SAT 92
[2017-01-20] MEDS: PANTOprazole SOD 40 MG TAB PO SCH ×2 (09:11→21:07)
[2017-01-20] MEDS: ENOXAPARIN 40 MG/0.4 ML SYR SQ SCH (09:12)
[2017-01-20] MEDS: BACITRACIN OINT 15 GM TUBE EXT SCH ×2 (09:13→21:07)
[2017-01-20] MEDS: ENALAPRILAT IV 2.5 MG in DEXTROSE 5% 25ML 25 ML IV SCH ×2 (09:32→21:06)
[2017-01-20] MEDS: HYDROmorphone INJ 2 MG/ML SYR/VIAL IV PRN ×4 (11:55→22:31)
[2017-01-20] MEDS ORDERED: OXYC-57 PO (12:01)
[2017-01-20] MEDS ORDERED: METR500T PO (12:01)
[2017-01-20] MEDS ORDERED: CIPR-255 PO (12:01)
--- NOTE | 2017-01-20 12:03 | Discharge Instructions ---
Discharge Instructions Date of Service Jan 20, 2017. Admission Reason for Admission: Perforation Of Colon Discharge Discharge Diagnosis / Problem: Bowel obstruction, Incerated Right inguinal hernia, Bowel peroforation Discharge Goals Goal(s): Decrease discomfort, Improve function Activity Recommendations Activity Limitations: as noted below No heavy lifting over 10 pounds for 6 weeks or until cleared by surgeon No strenuous activity No working until seen by surgeon and cleared to return to work No driving while taking narcotic pain medication or until you are pain free Instructions / Follow-Up Instructions / Follow-Up You may shower, do not submerge incisions underwater You will be given narcotic pain medication to take as needed for pain You will also need to take oral antibiotics for another 7 days Please follow-up with Dr. Whitten in 1 week please call office at [phone] to make an appointment Please bring your FMLA paperwork with you to the office Current Hospital Diet Patient's current hospital diet: Low Fiber Diet Discharge Diet Recommended Diet: Low Fiber Diet Procedures Procedures Performed: Exploratory Laparotomy; Sigmoid Colon Resection, Creation Greg Pouch, Colostomy, primary Repair Right Inguinal Hernia Pending Studies Studies pending at discharge: no Medical Emergencies . Who to Call and When: Medical Emergencies: If at any time you feel your situation is an emergency, please call 911 immediately. . Non-Emergent Contact Non-Emergency issues call your: Primary Care Provider, Surgeon Call Non-Emergent contact if: you have a fever, temperature is above 101, your pain is not controlled, your pain is worsening, wound has increased redness, wound has increased pain . "Provider Documentation" section prepared by Kate Mccrary. . VTE Core Measure Inpt VTE Proph given/why not?: Enoxaparin (Lovenox)SQ, SCD's [place] Drug Monitoring Program Search Results: patient reviewed within database Drug Monitoring Findings: Patient does have monthly prescription for Hydrocodone 30 pills last given middle of December however patient had major abdominal surgery and will need narcotic pain medication prn prescribed.
--- NOTE | 2017-01-20 12:51 | Surgery Progress Note ---
Surgery Progress Note Date of Service Jan 20, 2017. Subjective Post OP Day: POD # 7 + feeling well, + ambulating, + flatus, + pain controlled, + diet (tolerated full liquids), No complaints, No chest pain, No SOB, No bowel movement (in ostomy), No nausea, No vomiting Objective Vital Signs: Date Time Temp Pulse Resp B/P (MAP) Pulse Ox O2 Delivery O2 Flow Rate FiO2 01/20/17 07:50 36.9 73 18 139/89 (106) 92 Room Air 01/20/17 07:45 Room Air 01/19/17 23:50 Room Air 01/19/17 22:42 36.8 73 16 129/85 (100) 94 Room Air 01/19/17 15:30 Room Air 01/19/17 14:49 36.8 70 16 154/70 (98) 91 Room Air General Appearance: WD/WN, no apparent distress Head: normocephalic, atraumatic Neck: trachea midline Respiratory/Chest: no respiratory distress, no accessory muscle use Abdomen: non distended, soft, + tenderness (appropriate post op), + pertinent finding (ostomy with soft brown stool present) Incision(s): clean, dry, intact, no erythema, findings (surgical patel present) Assessment & Plan POD # 7 s/p Exploratory Laparotomy; Sigmoid Colon Resection, Creation Greg Pouch, Colostomy, and primary Repair Right Inguinal Hernia - vitals stable - ostomy output + - pain controlled - adequate urine output - tolerating full liquids Plan: D/C home today with home health care Will advance diet to soft diet for lunch will need ostomy teaching prior to d/c AYDIN drain to be discontinued prior to discharge Will be given Rx for Percocet and PO antibiotics Cipro/Flagyl for 7 days Follow-up with Dr. Whitten 1 week Discharge instructions given Dr. Whitten has seen and examined patient, agrees with above
[2017-01-20 15:15] VITALS: BP 155/99; PULSE 79; TEMP 36.8; O2SAT 93
[2017-01-20 23:03] VITALS: BP 128/81; PULSE 79; TEMP 36.9; O2SAT 93
[2017-01-21] MEDS: OXYCODONE/ACETAMINOPHEN 5-325 TAB PO PRN ×5 (01:14→21:19)
[2017-01-21] MEDS: PIPERACILL/TAZOBAC IV 4.5 GM in DEXTROSE 5% 100ML 100 ML IV SCH ×3 (04:28→22:06)
[2017-01-21] MEDS: LEValbuterol HFA 15GM INHALER INH SCH ×3 (05:25→18:14)
[2017-01-21] MEDS: IPRATROPIUM BROMIDE HFA INHALER INH SCH ×3 (05:26→18:16)
[2017-01-21] MEDS: LEVOTHYROXINE 200 MCG TAB PO SCH (05:27)
[2017-01-21 07:01] VITALS: BP 127/75; PULSE 69; TEMP 36.8; O2SAT 92
[2017-01-21 08:00] VITALS: O2SAT 92
[2017-01-21] MEDS: BACITRACIN OINT 15 GM TUBE EXT SCH ×2 (08:20→21:16)
[2017-01-21] MEDS: ENALAPRILAT IV 2.5 MG in DEXTROSE 5% 25ML 25 ML IV SCH ×2 (08:21→21:17)
[2017-01-21] MEDS: PANTOprazole SOD 40 MG TAB PO SCH ×2 (08:21→21:18)
[2017-01-21] MEDS: ENOXAPARIN 40 MG/0.4 ML SYR SQ SCH (08:21)
[2017-01-21] MEDS: HYDROmorphone INJ 2 MG/ML SYR/VIAL IV PRN ×3 (08:22→18:17)
--- NOTE | 2017-01-21 09:33 | SURGERY PROGRESS NOTE ---
DATE: 01/21/2017 DATE: 01/21/2017. Covering for Dr. Whitten. Duncan Lin is 1 week postop a Greg procedure for perforated diverticulum and right inguinal hernia repair. Apparently he was told he could go home today and I was covering for Dr. Whitten. The patient's last vitals showed a temperature of 36.8, a pulse 69, respirations 18, blood pressure 127/75, O2 sats 92 on room air. I&O, he had 1250 of urine out overnight. His colostomy had 150 overnight, some loose contents, nonbloody. His abdomen is markedly distended, very tympanitic. The right inguinal incision looks free of any infection. The [place] drainage had 10 mL overnight and by the PAs note said that probably remove it prior to discharge. However, the patient did say that they tried to take it out yesterday and had excruciating pain taking it out and may have been stuck. Having said that, I discussed with the patient that he is not ready to be discharged yet. His abdomen is still moderately distended. I would feel more comfortable than if he had less of a postoperative ileus. He is agreeable to that and will reevaluate him tomorrow. Also of note, his laboratory had a TSH level 7.4. He is probably on thyroid replacement. We will recheck his labs today.
[2017-01-21 09:55] LABS: HEMATOCRIT 38.4 % (42-52); MEAN CORPUSCULAR HEMOGLOBIN 29.5 pg (25-34); MEAN PLATELET VOLUME 8.7 fL (7.4-10.4); PLATELET COUNT 244 K/uL (130-400); RED BLOOD COUNT 4.04 M/uL (4.7-6.1); WHITE BLOOD COUNT 13.16 K/uL (4.8-10.8)
[2017-01-21 10:22] LABS: BUN/CREATININE RATIO 11.1 (10-20); CALCIUM 8.6 mg/dl (8.5-10.1); CREATININE 1.5 mg/dl (0.60-1.40); POTASSIUM 3.9 mmol/L (3.5-5.1)
[2017-01-21 10:48] LABS: BASO % 0.6 %; BASO ABS # 0.08 K/uL (0-0.2); COMPLETE YES; EOS % 2.7 %; IG% 5.5 %; LYMPH ABS # 2.11 K/uL (1.2-3.4); MONO % 9.9 %; NEUT % 65.3 %
[2017-01-21] MEDS: SODIUM CHLOR 0.45% + 20MEQ KCL 1,000 ML IV SCH (11:54)
[2017-01-21] MEDS ORDERED: PIPERACILL/TAZOBAC CONSULT ACTIVE PRN (13:15)
[2017-01-21 14:47] VITALS: BP 132/83; PULSE 75; TEMP 36.8; O2SAT 92
[2017-01-21 21:20] VITALS: BP 136/88; PULSE 75
[2017-01-21 23:32] VITALS: BP 122/76; PULSE 69; TEMP 36.8; O2SAT 92
[2017-01-22] MEDS: LEValbuterol HFA 15GM INHALER INH SCH ×2 (00:04→05:35)
[2017-01-22] MEDS: IPRATROPIUM BROMIDE HFA INHALER INH SCH ×2 (00:04→05:35)
[2017-01-22] MEDS: HYDROmorphone INJ 2 MG/ML SYR/VIAL IV PRN ×2 (00:11→07:41)
[2017-01-22] MEDS: PIPERACILL/TAZOBAC IV 4.5 GM in DEXTROSE 5% 100ML 100 ML IV SCH (05:34)
[2017-01-22] MEDS: OXYCODONE/ACETAMINOPHEN 5-325 TAB PO PRN ×2 (05:34→10:36)
[2017-01-22] MEDS: LEVOTHYROXINE 200 MCG TAB PO SCH (05:35)
[2017-01-22 06:47] LABS: BASO % 0.4 %; BASO ABS # 0.05 K/uL (0-0.2); COMPLETE YES; EOS % 2.4 %; HEMATOCRIT 37.2 % (42-52); IG% 4.6 %; LYMPH % 14.3 %; LYMPH ABS # 1.94 K/uL (1.2-3.4); MEAN CELL VOLUME 94.9 fL (80-100); MEAN CORPUSCULAR HEMOGLOBIN 29.1 pg (25-34); MEAN CORPUSCULAR HGB CONC 30.6 g/dl (32-36); MEAN PLATELET VOLUME 8.8 fL (7.4-10.4); MONO % 9.3 %; PLATELET COUNT 269 K/uL (130-400); RED BLOOD COUNT 3.92 M/uL (4.7-6.1); WHITE BLOOD COUNT 13.61 K/uL (4.8-10.8)
[2017-01-22 07:18] VITALS: BP 126/82; PULSE 61; TEMP 37; O2SAT 93
[2017-01-22 07:21] LABS: BUN/CREATININE RATIO 12.7 (10-20); CALCIUM 8.5 mg/dl (8.5-10.1); CREATININE 1.5 mg/dl (0.60-1.40)
[2017-01-22] MEDS: SODIUM CHLOR 0.45% + 20MEQ KCL 1,000 ML IV SCH (07:44)
[2017-01-22 07:45] VITALS: O2SAT 93
--- NOTE | 2017-01-22 08:43 | SURGERY PROGRESS NOTE ---
DATE: 01/22/2017 Ray is 9th postoperative day status post a Greg procedure for perforated sigmoid diverticula. The path report is noted. He feels much better than yesterday. Yesterday he was significantly distended. Therefore, I kept him in the hospital and restarted Zosyn on since his white count was still moderately elevated at 13. This morning he feels much better. The abdomen is much softer. The incision has a few open areas in the midline where a drain probably had been placed. The Eitan-Garrison drain in the right lower quadrant had minimal drainage and was removed. The right groin incision appears fine. At this point, the patient is ready to discharge. His last vitals shows a temperature of 37, pulse 61, respirations 17, blood pressure 126/82, O2 sats 93% on room air. His colostomy is working well. His urine output was 1200 over yesterday. His laboratory; however, shows his white count is still 13.1 with a left shift. His chemistries, the BUN is 19, creatinine 1.5 unchanged. We did give him some fluid yesterday. I think this patient is anxious to go home and I would recommend he be discharged and follow up with Dr. Whitten. He stated that he has an appointment to call him on Monday. He has RX for cipro and Flagyl by primary service , and just wrote RX for Percocet 5/325 (#30) since pharmacy would not fill Rx given by Pa since it was a copy( to pick it up on 3rd floor). GRICEL
[2017-01-22] MEDS: BACITRACIN OINT 15 GM TUBE EXT SCH (09:57)
[2017-01-22] MEDS: ENALAPRILAT IV 2.5 MG in DEXTROSE 5% 25ML 25 ML IV SCH (09:58)
[2017-01-22] MEDS: PANTOprazole SOD 40 MG TAB PO SCH (09:59)
[2017-01-22] MEDS: ENOXAPARIN 40 MG/0.4 ML SYR SQ SCH (09:59)
[2017-01-22 10:52] VITALS: BP 126/82; PULSE 61; TEMP 37; O2SAT 93
--- NOTE | 2017-01-24 07:52 | EDITING REQUIRED CODING QUERY ---
PRESENT ON ADMISSION QUERY To promote full compliance with coding requirements relating to patient care, physician participation is requested in all cases of decorator inspector uncertainty. Please assist us with the question(s) below: Please place an X within the parenthesis (x). The following diagnosis listed in this patient's medical record requires physician assistance to determine if they were present on admission (POA) or not. Please advise for each diagnosis whether it was present on admission, not present on admission, or if it was clinically undetermined. 1. Sepsis documented on progress notes beginning 01/15. Was Sepsis POA or did it develop after admission? Thank you for your help! ( ) Present On Admission (x ) Not Present On Admission ( ) Clinically Undetermined Thank you! Glendy Gordon *Definition of the present on admission (POA)-Present on admission is defined as present at the time the order for inpatient admission occurs. Conditions that develop during an outpatient encounter prior to a written order for inpatient admission (including emergency department, observation, or outpatient surgery) are considered present on admission.
[2017-05-09] MEDS ORDERED: ERYTTAB PO (09:10)
[2017-05-09] MEDS ORDERED: METO25TA56 PO (09:10)
[2017-05-09] MEDS ORDERED: NEOM500T PO (09:10)
[2017-05-09] MEDS ORDERED: ATOR-26 PO (09:10)
[2017-05-09] MEDS ORDERED: OXYC-57 PO (09:10)
== END 2017-01-22 11:30 | disposition home health service (06) | DRG 329 ==
LOC: EDBD 07:59 → C.EDA 08:02 → C.MSICU 15:51 → ENRESERV 16:33 → C.MSW 01-16 10:26 → ENRESERV 01-16 11:41
PROVIDERS: ADMIT Surgery; ATTEND Surgery
PROC: 0D1N0Z4 Bypass Sigmoid Colon to Cutaneous, Open Approach (ICD-10-PCS; principal; 2017-01-13 11:00)
PROC: 0WQF0ZZ Repair Abdominal Wall, Open Approach (ICD-10-PCS; principal; 2017-01-13 11:00)
PROC: 0DBN0ZZ Excision of Sigmoid Colon, Open Approach (ICD-10-PCS; principal; 2017-01-13 11:00)
DX: K63.1 Perforation of intestine (nontraumatic) (principal); K65.9 Peritonitis, unspecified; A41.51 Sepsis due to Escherichia coli [E. coli]; K40.90 Unilateral inguinal hernia, without obstruction or gangrene, not specified as recurrent; I10 Essential (primary) hypertension; E03.9 Hypothyroidism, unspecified; E78.5 Hyperlipidemia, unspecified; Z79.82 Long term (current) use of aspirin; Z79.899 Other long term (current) drug therapy; F17.200 Nicotine dependence, unspecified, uncomplicated

== ENCOUNTER 2017-05-22 06:35 | Inpatient (IN) | payer BC ==
[2017-05-09 09:12] VITALS: BMI 32.0
--- NOTE | 2017-05-09 09:47 | PAT Medication Instructions ---
Service Date May 09, 2017. Current Home Medication List Aspirin Enteric Coated (Ecotrin Or Generic), 81 MG PO QAM Atorvastatin (Lipitor), 80 MG PO QAM Erythromycin (Erythromycin), 1 TAB PO UD Levothyroxine Sodium (Synthroid), 200 MCG PO QAM Lisinopril (Prinivil), 20 MG PO QAM Metoprolol Tartrate (Lopressor) (Lopressor), 25 MG PO BID Neomycin Sulfate (Neomycin Sulfate), 2 TAB PO UD Oxycodone/Acetaminophen 5MG/325MG (Percocet 5MG/325MG), 1 TABLET PO QID PRN for hemodialysis technician Instructions For Your Scheduled Surgery - Take as directed by your surgeon: Erythromycin (Erythromycin), 1 TAB PO UD Neomycin Sulfate (Neomycin Sulfate), 2 TAB PO UD - Hold the following medications the morning of surgery: Lisinopril (Prinivil), 20 MG PO QAM - Take the following medications the morning of surgery with a sip of water: Aspirin Enteric Coated (Ecotrin Or Generic), 81 MG PO QAM (okay per surgeon) Metoprolol Tartrate (Lopressor) (Lopressor), 25 MG PO BID Levothyroxine Sodium (Synthroid), 200 MCG PO QAM Atorvastatin (Lipitor), 80 MG PO QAM Oxycodone/Acetaminophen 5MG/325MG (Percocet 5MG/325MG), 1 TABLET PO QID PRN ( can take up to 4 hours before surgery if needed) - Take the following medications as scheduled the night before surgery: Metoprolol Tartrate (Lopressor) (Lopressor), 25 MG PO BID Oxycodone/Acetaminophen 5MG/325MG (Percocet 5MG/325MG), 1 TABLET PO QID PRN If you have any questions please call us at [phone] or [phone] or [phone]
[~2017-05-22] VITALS: Ht 177.8 cm; Wt 101.8 kg
[2017-05-22] VITALS (10 sets, daily range): BP systolic 112–135; BP diastolic 79–93; PULSE 77–102; TEMP 36.4–36.8; O2SAT 90–95; Ht 177.8 cm; Wt 101.8 kg
[~2017-05-22 06:35] MED LIST changes: +ATOR-26 PO; +CEFAZOLIN 2000 MG/60 ML D5W IV SCH; +ERYTTAB PO; +LACTATED RINGER'S 1000ML 1,000 ML IV SCH; +METO25TA56 PO; +NEOM500T PO; +OXYC-57 PO; -SIMV80TA2 PO
[2017-05-22] MEDS ORDERED: ATROPINE SULFATE 0.1 MG/ML 5ML SYR IV PRN (07:15)
[2017-05-22] MEDS ORDERED: ONDANSETRON INJ 2 MG/ML 2 ML VIAL IV PRN ×2 (07:15→12:00)
[2017-05-22] MEDS ORDERED: EpHEDrine SULFATE INJ 50 MG/ML AMP IV PRN (07:15)
[2017-05-22] MEDS ORDERED: NEOSTIGMINE METHYLSULFATE 5 MG/5 ML SYR ONE (08:21)
[2017-05-22] MEDS ORDERED: PROPOFOL IV EMULSION 10 MG/ML 20 ML VIAL IV ONE ×2 (08:21→11:23)
[2017-05-22] MEDS ORDERED: FENTANYL CITRATE INJ 50 MCG/1 ML 2 ML VIAL ONE ×2 (08:21→11:49)
[2017-05-22] MEDS ORDERED: ONDANSETRON INJ 2 MG/ML 2 ML VIAL ONE (08:21)
[2017-05-22] MEDS ORDERED: DEXAMETHASONE SOD INJ 4 MG/ML VIAL ONE (08:21)
[2017-05-22] MEDS ORDERED: LIDOCAINE HCL 2% 2 ML VIAL (20MG/ML) ONE (08:21)
[2017-05-22] MEDS ORDERED: GLYCOPYRROLATE INJ 0.2 MG/ML VIAL ONE (08:21)
[2017-05-22] MEDS ORDERED: MIDAZOLAM HCL 1 MG/ML 2ML VIAL ONE (08:21)
[2017-05-22] MEDS ORDERED: CEFOXITIN SOD 1 GM VIAL ONE ×2 (08:28→09:40)
[2017-05-22] MEDS ORDERED: ROCURONIUM BROMIDE 10 MG/ML 5 ML VIAL IV ONE ×6 (08:57→10:52)
[2017-05-22] MEDS ORDERED: METOPROLOL TARTRATE 1 MG/ML VIAL ONE (09:19)
[2017-05-22] MEDS ORDERED: HYDROmorphone INJ 2 MG/ML SYR/VIAL ONE (09:56)
[2017-05-22] MEDS ORDERED: PHENYLEPHRINE 100MCG/ML 5ML SYR ONE (10:46)
[2017-05-22] MEDS ORDERED: BACITRACIN OINT 15 GM TUBE ONE (11:35)
--- NOTE | 2017-05-22 11:49 | [facility] Post Operative Brief Note ---
Immediate Operative Summary Operative Date May 22, 2017. Pre-Operative Diagnosis Para-Stoma Hernia, Patient desires Colostomy Reversal Post-Operative Diagnosis Para-Stoma Hernia, Patient desires Colostomy Reversal Procedure(s) Performed Reverse Colostomy, Repair of Parastoma Hernia, lysis adhesion Surgeon Dr. Margo Whitten Lapidary Apprentice Surgeon(s) Kate Mccrary PA-C Estimated Blood Loss 50 ml Findings para-stomal hernia, good blood supply to colostomy Specimens A. Partial Sigmoid Drains AYDIN X1 Anesthesia general Complication(s) None Disposition Recovery Room / PACU
[2017-05-22] MEDS: FENTANYL CITRATE INJ 50 MCG/1 ML 2 ML VIAL IV PRN ×3 (12:00→12:10)
[2017-05-22] MEDS ORDERED: ACETAMINOPHEN 325 MG TAB PO PRN (12:00)
[2017-05-22] MEDS ORDERED: HYDROmorphone INJ 2 MG/ML SYR/VIAL IV PRN (12:00)
[2017-05-22] MEDS: HYDROmorphone INJ 1 MG/ML SYR IV PRN ×10 (12:20→23:48)
--- NOTE | 2017-05-22 12:32 | Anesthesiology Progress Note ---
Anesthesia Post Op Note Date & Time May 22, 2017 at 12:32 Vital Signs Pain Intensity: 6.0 Vital Signs Past 12 Hours Date Time Temp Pulse Resp B/P (MAP) Pulse Ox O2 Delivery O2 Flow Rate FiO2 05/22/17 12:20 75 13 153/94 96 Nasal Cannula 4 05/22/17 12:10 75 18 144/101 93 Nasal Cannula 4 05/22/17 12:00 79 14 152/100 97 Nasal Cannula 4 05/22/17 11:51 36.4 80 19 161/112 100 Oxymask 10 05/22/17 07:28 36.8 84 20 127/86 93 Room Air Notes Mental Status: alert / awake / arousable, participated in evaluation Pt Amnestic to Procedure: Yes Nausea / Vomiting: adequately controlled Pain: adequately controlled Airway Patency, RR, SpO2: stable & adequate BP & HR: stable & adequate Hydration State: stable & adequate Anesthetic Complications: no major complications apparent
[2017-05-22] MEDS ORDERED: METRONIDAZOLE / NSS 500 MG in PREMIXED NSS 0 ML IV SCH (14:00)
[2017-05-22] MEDS ORDERED: NURSING VERBAL MED ORDER ONE ×3 (15:15→17:15)
[2017-05-22 15:16] LABS: CREATININE 1.1 mg/dl (0.60-1.40)
[2017-05-22] MEDS: D5W AND 1/2NSS + 20MEQ KCL 1,000 ML IV SCH ×2 (15:26→23:47)
[2017-05-22] MEDS: METRONIDAZOLE / NSS 500 MG in PREMIXED NSS 100 ML IV SCH ×2 (15:26→22:06)
[2017-05-22] MEDS: PANTOprazole INJ 40 MG in SYRINGE 0 ML IV SCH (16:29)
[2017-05-22] MEDS: MoRPHine SULFATE 4 MG/ML 1 ML CARP\\VIAL IV PRN ×2 (17:13→21:31)
--- NOTE | 2017-05-22 20:05 | OPERATIVE REPORT ---
DATE OF OPERATION: 05/22/2017 PREOPERATIVE DIAGNOSIS: S/P Greg's procedure. POSTOPERATIVE DIAGNOSIS: Same. PROCEDURE: Closed colostomy, repair of parastomal hernia, lysis of adhesion. SURGEON: Nacho Whitten MD. ANESTHESIA: General. ESTIMATED BLOOD LOSS: About 50 mL FINDINGS: Parastomal hernia, good blood circulation, support to colostomy. COMPLICATIONS: None. IV FLUIDS: 1500 mL INDICATIONS FOR THE PROCEDURE: This is a 51-year-old gentleman who had a Greg procedure done for colon perforation 3 months ago and then the patient required to do a closure of colostomy, repair of a parastomal hernia. I did talk to the patient about the benefit and risk, alternate procedure. I indicated the risks may include but not limited such as bleeding, infection, abscess, internal hernia, may need more procedure, injury to bowel, anastomosis leak, sepsis, myocardial infarction, DVT, stroke, even . The patient and patient's understand. The patient signed informed consent. I answered all questions. DETAILS OF PROCEDURE: We brought the patient to the OR and put the patient in the supine position. The patient received SCD in bilateral legs to prevent DVT. Also, the patient received 2 grams Ancef IV for prophylactic antibiotic. The patient received general anesthesia without difficulty. Then, we repositioned to lithotomy position. The patient's abdomen was prepped and draped in routine sterile fashion and also included rectal area. After a timeout, I used 2-0 Prolene to close the stoma continuous running and then I used a 15 blade and took down the stoma, and once we took down the stoma, then I made a midline incision using the old midline incision, opened fascia and opened peritoneum under direct vision. There were some adhesions, we took down. Then, we mobilized the stoma from inside the abdomen free. At this moment, we use suture 2-0 Prolene and then I used a SAM staple and removed partial colostomy, about 4 cm. Then, I used Bovie to takedown the staple line and put a pulse drainage in and put anvil in and tied the suture. We chose the 28 mm EEA staple and MONALISA Nieto, went to the rectal area and dilated the rectum with a 28 mm dilator and then we passed the staple through the rectal and then we did anastomosis sigmoid colon to rectum by using 28mm EEA stapl the staple and then we used normal saline to check any leak, injected air from rectal, no leak noticed. close mensenteric defect by using 2-0 vicryl. Hemostasis obtained. Then, I closed the stomal hernia facial layer by using #1 Ethibond interrupted suture and then closed the subcutaneous layer by using 2-0 Vicryl continuous running, closed the skin by using staple, the medial layer also I used #1 PDS continuous running, closed the fascial layer using 2-0 Vicryl, closed the subcutaneous layer continuous running and closed skin by using staple. Then, we put the dressing on. Also, before we closed the incision, we also put one 10 mm AYDIN drainage in abdominal cavity, fixed AYDIN drainage on the skin incision by using 2-0 silk. Then, we put the dressing on. The patient tolerated the procedure well. All instrument, needle and sponge count correct x2 at the end of the case. The specimen sent to pathology. After we did bowel anastomosis, we checked 2 anastomosis rings which were intact. After procedure, I did talk to the patient and family member about the OR finding and procedure we did, they understand. The patient will be admitted to hospital. I attest to the content of the Intraoperative Record and any orders documented therein. Any exceptions are noted below. GRICEL
[2017-05-22] MEDS: CIPROFLOXACIN / D5W 400 MG in PREMIXED IN D5W 200 ML IV SCH (21:31)
[2017-05-23] MEDS: MoRPHine SULFATE 4 MG/ML 1 ML CARP\\VIAL IV PRN ×2 (02:32→06:01)
[2017-05-23 03:47] VITALS: BP 122/78; PULSE 94; TEMP 37; O2SAT 93
[2017-05-23] MEDS: METRONIDAZOLE / NSS 500 MG in PREMIXED NSS 100 ML IV SCH ×2 (05:56→14:45)
[2017-05-23] MEDS ORDERED: CEFAZOLIN IV 2,000 MG/60 ML D5W IV ONE (06:00)
[2017-05-23 07:01] VITALS: BP 124/81; PULSE 90; TEMP 37; O2SAT 90
[2017-05-23 07:09] LABS: BASO % 0.1 %; BASO ABS # 0.02 K/uL (0-0.2); COMPLETE YES; EOS % 0.1 %; HEMATOCRIT 40.5 % (42-52); IG% 0.5 %; LYMPH % 15.7 %; LYMPH ABS # 2.33 K/uL (1.2-3.4); MEAN CELL VOLUME 91.4 fL (80-100); MEAN CORPUSCULAR HEMOGLOBIN 30.9 pg (25-34); MEAN CORPUSCULAR HGB CONC 33.8 g/dl (32-36); MEAN PLATELET VOLUME 9.5 fL (7.4-10.4); MONO % 13.7 %; NEUT % 69.9 %; PLATELET COUNT 185 K/uL (130-400); RED BLOOD COUNT 4.43 M/uL (4.7-6.1); WHITE BLOOD COUNT 14.81 K/uL (4.8-10.8)
[2017-05-23 07:42] LABS: CALCIUM 8.3 mg/dl (8.5-10.1); CREATININE 1.1 mg/dl (0.60-1.40); POTASSIUM 3.9 mmol/L (3.5-5.1)
[2017-05-23 07:44] LABS: ALB/GLOB RATIO 0.9 (0.9-2)
[2017-05-23] MEDS: HYDROmorphone INJ 1 MG/ML SYR IV PRN (07:48)
--- NOTE | 2017-05-23 08:07 | Anesthesiology Progress Note ---
Anesthesia Post Op Note Date & Time May 23, 2017 at 08:06 Vital Signs Vital Signs Past 12 Hours Date Time Temp Pulse Resp B/P (MAP) Pulse Ox O2 Delivery O2 Flow Rate FiO2 05/23/17 07:01 37.0 90 18 124/81 (95) 90 Room Air 05/23/17 03:47 37.0 94 18 122/78 (93) 93 Nasal Cannula 2.0 05/22/17 23:45 36.8 82 18 127/93 (104) 94 Nasal Cannula 2.0 05/22/17 23:40 Nasal Cannula 2.0 Notes Mental Status: alert / awake / arousable, participated in evaluation Pt Amnestic to Procedure: Yes Nausea / Vomiting: adequately controlled Pain: adequately controlled Airway Patency, RR, SpO2: stable & adequate BP & HR: stable & adequate Hydration State: stable & adequate Anesthetic Complications: no major complications apparent
[2017-05-23] MEDS: D5W AND 1/2NSS + 20MEQ KCL 1,000 ML IV SCH ×2 (08:52→20:04)
[2017-05-23] MEDS: CIPROFLOXACIN / D5W 400 MG in PREMIXED IN D5W 200 ML IV SCH ×2 (08:52→21:21)
--- NOTE | 2017-05-23 09:52 | Surgery Progress Note ---
Surgery Progress Note Date of Service May 23, 2017. Subjective Post OP Day: 1 + feeling well, + ambulating, + pain controlled, No complaints, No chest pain, No SOB, No bowel movement, No flatus, No nausea, No vomiting Objective Vital Signs: Date Time Temp Pulse Resp B/P (MAP) Pulse Ox O2 Delivery O2 Flow Rate FiO2 05/23/17 07:01 37.0 90 18 124/81 (95) 90 Room Air 05/23/17 03:47 37.0 94 18 122/78 (93) 93 Nasal Cannula 2.0 05/22/17 23:45 36.8 82 18 127/93 (104) 94 Nasal Cannula 2.0 05/22/17 23:40 Nasal Cannula 2.0 05/22/17 19:20 36.4 102 20 135/86 (102) 90 Room Air 05/22/17 17:34 Room Air 05/22/17 16:30 36.4 89 18 112/79 (90) 92 Nasal Cannula 2.0 05/22/17 15:35 Nasal Cannula 2.0 05/22/17 15:30 36.4 81 20 123/82 (96) 92 Nasal Cannula 2.0 05/22/17 14:26 77 18 123/88 (100) 93 05/22/17 13:39 95 Nasal Cannula 2.0 05/22/17 13:32 95 Nasal Cannula 2.0 05/22/17 13:30 36.8 86 14 133/83 (100) 95 Nasal Cannula 2.0 05/22/17 13:10 72 12 126/84 94 Nasal Cannula 4 05/22/17 13:00 36.6 74 13 130/87 95 Nasal Cannula 4 05/22/17 12:50 36.6 86 13 132/99 96 Nasal Cannula 4 05/22/17 12:40 77 13 125/87 95 Nasal Cannula 4 05/22/17 12:30 73 13 134/88 95 Nasal Cannula 4 05/22/17 12:20 75 13 153/94 96 Nasal Cannula 4 05/22/17 12:10 75 18 144/101 93 Nasal Cannula 4 05/22/17 12:00 79 14 152/100 97 Nasal Cannula 4 05/22/17 11:51 36.4 80 19 161/112 100 Oxymask 10 Physical Exam: AYDIN drainage (serosanguineous), nasogastric drainage (no output) General Appearance: WD/WN, no apparent distress Head: normocephalic, atraumatic Neck: trachea midline Respiratory/Chest: lungs clear, normal breath sounds, no respiratory distress, no accessory muscle use Cardiovascular: regular rate, rhythm, no murmur Abdomen: non distended, soft, + tenderness (appropriate post op at midline incision and general abdomen, no peritonitis, rigidity, or guarding) Incision(s): findings (dressing has some drainage on it, will be inspected later today) Laboratory Results: Results Past 24 Hours Test 05/22/17 13:59 05/23/17 06:32 Range/Units Creatinine 1.10 1.10 0.60-1.40 mg/dl Est Creatinine Clear Calc Drug Dose 97.1 97.1 ml/min Estimated GFR () 90.9 90.9 Estimated GFR (Non- 78.4 78.4 White Blood Count 14.81 4.8-10.8 K/uL Red Blood Count 4.43 4.7-6.1 M/uL Hemoglobin 13.7 14.0-18.0 g/dL Hematocrit 40.5 42-52 % Mean Corpuscular Volume 91.4 80-100 fL Mean Corpuscular Hemoglobin 30.9 25-34 pg Mean Corpuscular Hemoglobin Concent 33.8 32-36 g/dl Platelet Count 185 130-400 K/uL Mean Platelet Volume 9.5 7.4-10.4 fL Neutrophils (%) (Auto) 69.9 % Lymphocytes (%) (Auto) 15.7 % Monocytes (%) (Auto) 13.7 % Eosinophils (%) (Auto) 0.1 % Basophils (%) (Auto) 0.1 % Neutrophils # (Auto) 10.34 1.4-6.5 K/uL Lymphocytes # (Auto) 2.33 1.2-3.4 K/uL Monocytes # (Auto) 2.03 0.11-0.59 K/uL Eosinophils # (Auto) 0.02 0-0.5 K/uL Basophils # (Auto) 0.02 0-0.2 K/uL RDW Standard Deviation 48.0 36.4-46.3 fL RDW Coefficient of Variation 14.3 11.5-14.5 % Immature Granulocyte % (Auto) 0.5 % Immature Granulocyte # (Auto) 0.07 0.00-0.02 K/uL Sodium Level 138 136-145 mmol/L Potassium Level 3.9 3.5-5.1 mmol/L Chloride Level 107 98-107 mmol/L Carbon Dioxide Level 24 21-32 mmol/L Anion Gap 7.0 3-11 mmol/L Blood Urea Nitrogen 13 7-18 mg/dl BUN/Creatinine Ratio 12.0 10-20 Random Glucose 121 70-99 mg/dl Calcium Level 8.3 8.5-10.1 mg/dl Total Bilirubin 0.3 0.2-1 mg/dl Aspartate Amino Transf (AST/SGOT) 10 15-37 U/L Alanine Aminotransferase (ALT/SGPT) 22 12-78 U/L Alkaline Phosphatase 57 45-117 U/L Total Protein 6.6 6.4-8.2 gm/dl Albumin 3.2 3.4-5.0 gm/dl Globulin 3.4 2.5-4.0 gm/dl Albumin/Globulin Ratio 0.9 0.9-2 Assessment & Plan POD # 1 s/p reversal of ostomy and repair of parastomal hernia -vitals stable - leukocytosis of 14.81, most likely post operative, afebrile - adequate urine output, No NGT output - no flatus or bowel movements - ambulating without difficulty Plan: Continue current pain management Continue IV fluids Continue IV antibiotics repeat am labs NGT advanced further, continue to LIS Continue AYDIN drain to bulb suction Continue SCDs Encourage OOB to chair and ambulation has seen and examined patient, agrees with above
[2017-05-23] MEDS ORDERED: HYDROmorphone INJ 2 MG/ML SYR/VIAL IV PRN (10:45)
[2017-05-23] MEDS ORDERED: HYDROmorphone INJ 2 MG/ML SYR/VIAL ONE (10:57)
[2017-05-23 11:10] VITALS: BP 129/79; PULSE 97; TEMP 36.6; O2SAT 91
[2017-05-23] MEDS: PANTOprazole INJ 40 MG in SYRINGE 0 ML IV SCH (12:12)
[2017-05-23] MEDS: SODIUM CHLORIDE 0.9% 1000ML 1,000 ML IV SCH (12:53)
[2017-05-23] MEDS ORDERED: NALOXONE HCL 0.4 MG/1 ML VIAL/CARP IV PRN (13:00)
[2017-05-23] MEDS: HYDROmorphone HCL 0.5MG/ML 50 ML CASSETTE IV PRN ×2 (15:01→23:05)
[2017-05-23 15:50] VITALS: BP 120/76; PULSE 95; TEMP 37.2; O2SAT 90
[2017-05-23 19:45] VITALS: BP 124/79; PULSE 94; TEMP 37; O2SAT 91
[2017-05-23 22:55] VITALS: BP 126/80; PULSE 93; TEMP 36.8; O2SAT 92
[2017-05-24] MEDS: D5W AND 1/2NSS + 20MEQ KCL 1,000 ML IV SCH ×2 (05:24→15:57)
[2017-05-24] MEDS: HYDROmorphone HCL 0.5MG/ML 50 ML CASSETTE IV PRN ×3 (07:00→22:54)
[2017-05-24 07:47] VITALS: BP 132/81; PULSE 85; TEMP 37; O2SAT 91
[2017-05-24 08:14] LABS: HEMATOCRIT 37.7 % (42-52); MEAN CELL VOLUME 93.3 fL (80-100); MEAN CORPUSCULAR HEMOGLOBIN 30.2 pg (25-34); MEAN CORPUSCULAR HGB CONC 32.4 g/dl (32-36); MEAN PLATELET VOLUME 9.5 fL (7.4-10.4); PLATELET COUNT 158 K/uL (130-400); RED BLOOD COUNT 4.04 M/uL (4.7-6.1); WHITE BLOOD COUNT 12.34 K/uL (4.8-10.8)
[2017-05-24] MEDS: CIPROFLOXACIN / D5W 400 MG in PREMIXED IN D5W 200 ML IV SCH (08:19)
[2017-05-24 08:54] LABS: BUN/CREATININE RATIO 11.5 (10-20); CALCIUM 8.4 mg/dl (8.5-10.1); CREATININE 1.1 mg/dl (0.60-1.40); POTASSIUM 3.7 mmol/L (3.5-5.1)
[2017-05-24 08:57] LABS: ALB/GLOB RATIO 0.9 (0.9-2)
[2017-05-24] MEDS: SODIUM CHLORIDE 0.9% 1000ML 1,000 ML IV SCH (09:47)
[2017-05-24] MEDS: PANTOprazole INJ 40 MG in SYRINGE 0 ML IV SCH ×2 (09:47→21:02)
[2017-05-24 11:07] VITALS: BP 111/74; PULSE 81; TEMP 36.8; O2SAT 91
--- NOTE | 2017-05-24 14:27 | Surgery Progress Note ---
Surgery Progress Note Date of Service May 24, 2017. 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), No complaints, No chest pain, No SOB, No bowel movement, No flatus, No nausea, No vomiting Objective Vital Signs: Date Time Temp Pulse Resp B/P (MAP) Pulse Ox O2 Delivery O2 Flow Rate FiO2 05/24/17 11:07 36.8 81 16 111/74 (86) 91 Room Air 05/24/17 08:00 Room Air 05/24/17 07:47 37.0 85 16 132/81 (98) 91 Room Air 05/23/17 23:45 Room Air 05/23/17 22:55 36.8 93 18 126/80 (95) 92 Room Air 05/23/17 19:45 37.0 94 18 124/79 (94) 91 Room Air 05/23/17 16:00 Room Air 05/23/17 15:50 37.2 95 18 120/76 (91) 90 Room Air Physical Exam: AYDIN drainage (serosanguineous), nasogastric drainage (dark bilious output) General Appearance: WD/WN, no apparent distress Head: normocephalic, atraumatic Neck: trachea midline Respiratory/Chest: no respiratory distress, no accessory muscle use Abdomen: non distended, soft, no organomegaly, no pulsatile mass, + tenderness (appropriate post op) Incision(s): clean, dry Laboratory Results: Results Past 24 Hours Test 05/24/17 07:43 Range/Units White Blood Count 12.34 4.8-10.8 K/uL Red Blood Count 4.04 4.7-6.1 M/uL Hemoglobin 12.2 14.0-18.0 g/dL Hematocrit 37.7 42-52 % Mean Corpuscular Volume 93.3 80-100 fL Mean Corpuscular Hemoglobin 30.2 25-34 pg Mean Corpuscular Hemoglobin Concent 32.4 32-36 g/dl RDW Standard Deviation 49.8 36.4-46.3 fL RDW Coefficient of Variation 14.6 11.5-14.5 % Platelet Count 158 130-400 K/uL Mean Platelet Volume 9.5 7.4-10.4 fL Sodium Level 139 136-145 mmol/L Potassium Level 3.7 3.5-5.1 mmol/L Chloride Level 105 98-107 mmol/L Carbon Dioxide Level 28 21-32 mmol/L Anion Gap 6.0 3-11 mmol/L Blood Urea Nitrogen 13 7-18 mg/dl Creatinine 1.10 0.60-1.40 mg/dl Est Creatinine Clear Calc Drug Dose 97.1 ml/min Estimated GFR () 90.9 Estimated GFR (Non- 78.4 BUN/Creatinine Ratio 11.5 10-20 Random Glucose 107 70-99 mg/dl Calcium Level 8.4 8.5-10.1 mg/dl Total Bilirubin 0.4 0.2-1 mg/dl Aspartate Amino Transf (AST/SGOT) 11 15-37 U/L Alanine Aminotransferase (ALT/SGPT) 16 12-78 U/L Alkaline Phosphatase 51 45-117 U/L Total Protein 6.2 6.4-8.2 gm/dl Albumin 3.0 3.4-5.0 gm/dl Globulin 3.2 2.5-4.0 gm/dl Albumin/Globulin Ratio 0.9 0.9-2 Assessment & Plan POD # 2 s/p reversal of ostomy and repair of parastomal hernia - vitals stable - leukocytosis of 12.34, improving - adequate urine output - 400 of NGT output, dark bilious in last 8 hour shift - no flatus or bowel movements - ambulating without difficulty Plan: Continue current pain management Continue IV fluids Continue IV antibiotics repeat am labs Continue NGT to LIS Will change Protonix IV to BID Continue AYDIN drain to bulb suction Continue SCDs Encourage OOB to chair and ambulation Daily dressing changes starting today has seen and examined patient, agrees with above
[2017-05-24 15:20] VITALS: BP 119/76; PULSE 83; TEMP 36.7; O2SAT 91
[2017-05-24 19:40] VITALS: BP 130/83; PULSE 84; TEMP 37; O2SAT 91
[2017-05-24 22:50] VITALS: BP 123/78; PULSE 84; TEMP 36.9; O2SAT 90
[2017-05-25] MEDS: D5W AND 1/2NSS + 20MEQ KCL 1,000 ML IV SCH ×3 (01:35→21:40)
[2017-05-25 03:46] VITALS: BP 115/74; PULSE 82; TEMP 37; O2SAT 91
[2017-05-25] MEDS: HYDROmorphone HCL 0.5MG/ML 50 ML CASSETTE IV PRN (06:51)
[2017-05-25 07:26] LABS: MEAN CELL VOLUME 92.5 fL (80-100); MEAN CORPUSCULAR HGB CONC 32.4 g/dl (32-36); MEAN PLATELET VOLUME 9.6 fL (7.4-10.4); PLATELET COUNT 160 K/uL (130-400); WHITE BLOOD COUNT 10.08 K/uL (4.8-10.8)
[2017-05-25 07:58] LABS: BUN/CREATININE RATIO 11.2 (10-20); CALCIUM 8.7 mg/dl (8.5-10.1); CREATININE 0.95 mg/dl (0.60-1.40); POTASSIUM 3.6 mmol/L (3.5-5.1)
[2017-05-25 09:29] VITALS: BP 125/83; PULSE 80; TEMP 37.1; O2SAT 90
[2017-05-25] MEDS ORDERED: HYDROmorphone INJ 2 MG/ML SYR/VIAL IV PRN (09:30)
--- NOTE | 2017-05-25 09:54 | Surgery Progress Note ---
Surgery Progress Note Date of Service May 25, 2017. Subjective Post OP Day: 3 (s/p reversal of colostomy and parastomal hernia repair) + feeling well, + ambulating, + pain controlled, No complaints, No chest pain, No SOB, No bowel movement, No flatus, No nausea, No vomiting Objective Vital Signs: Date Time Temp Pulse Resp B/P (MAP) Pulse Ox O2 Delivery O2 Flow Rate FiO2 05/25/17 09:29 37.1 80 20 125/83 (97) 90 Room Air 05/25/17 03:46 37.0 82 16 115/74 (88) 91 Room Air 05/24/17 23:20 Room Air 05/24/17 22:50 36.9 84 18 123/78 (93) 90 Room Air 05/24/17 19:40 37.0 84 18 130/83 (99) 91 Room Air 05/24/17 16:00 Room Air 05/24/17 15:20 36.7 83 18 119/76 (90) 91 Room Air 05/24/17 11:07 36.8 81 16 111/74 (86) 91 Room Air Physical Exam: AYDIN drainage (serosanguineous), nasogastric drainage (dark brown output, 900 mls yesterday, 240 cc in canister this am) General Appearance: WD/WN, no apparent distress Head: normocephalic, atraumatic Neck: trachea midline Respiratory/Chest: no respiratory distress, no accessory muscle use Abdomen: non distended, soft, + tenderness (appropriate post op) Incision(s): findings (dressing with drainage present, incision not evaluated, will change later today) Laboratory Results: Results Past 24 Hours Test 05/25/17 06:35 Range/Units White Blood Count 10.08 4.8-10.8 K/uL Red Blood Count 4.00 4.7-6.1 M/uL Hemoglobin 12.0 14.0-18.0 g/dL Hematocrit 37.0 42-52 % Mean Corpuscular Volume 92.5 80-100 fL Mean Corpuscular Hemoglobin 30.0 25-34 pg Mean Corpuscular Hemoglobin Concent 32.4 32-36 g/dl RDW Standard Deviation 48.0 36.4-46.3 fL RDW Coefficient of Variation 14.2 11.5-14.5 % Platelet Count 160 130-400 K/uL Mean Platelet Volume 9.6 7.4-10.4 fL Sodium Level 136 136-145 mmol/L Potassium Level 3.6 3.5-5.1 mmol/L Chloride Level 102 98-107 mmol/L Carbon Dioxide Level 29 21-32 mmol/L Anion Gap 5.0 3-11 mmol/L Blood Urea Nitrogen 11 7-18 mg/dl Creatinine 0.95 0.60-1.40 mg/dl Est Creatinine Clear Calc Drug Dose 112.4 ml/min Estimated GFR () 108.5 Estimated GFR (Non- 93.6 BUN/Creatinine Ratio 11.2 10-20 Random Glucose 109 70-99 mg/dl Calcium Level 8.7 8.5-10.1 mg/dl Assessment & Plan POD # 3 s/p colostomy reversal and repair of parastomal hernia -vitals stable, afebrile - leukocytosis resolved - NGT with dark red brown output, 900 cc yesterday - no flatus or BM - pain currently controlled with INSIDE FINISHER- Dilaudid Plan: D/C Dilaudid INSIDE FINISHER, Start IV Dilaudid 1.2 mg q3H prn pain Start IV Reglan 10 mg q8h Continue NPO Continue NGT to LIS Continue IV Protonix BID Continue IV abx and IV Fluids Continue ambulation and OOB to chair Daily dressing changes AYDIN drain to bulb suction SCDs, avoid systemic anticoagulation given NGT output Dr. Whitten has seen and examined patient, agrees with above
[2017-05-25] MEDS: PANTOprazole INJ 40 MG in SYRINGE 0 ML IV SCH ×2 (10:08→21:40)
[2017-05-25 11:26] VITALS: BP 121/76; PULSE 78; TEMP 37.2; O2SAT 91
[2017-05-25] MEDS: METOCLOPRAMIDE HCL INJ 5 MG/ML 2 ML VIAL IV SCH ×2 (14:14→21:42)
[2017-05-25 15:21] VITALS: BP 120/77; PULSE 76; TEMP 37.3; O2SAT 91
[2017-05-25 15:45] VITALS: O2SAT 91
[2017-05-25] MEDS ORDERED: COUGH DROP (SUGAR FREE) LOZ 24 LOZ/1 BOX PO PRN (17:15)
[2017-05-25] MEDS: HYDROmorphone INJ 2 MG/ML SYR/VIAL IV PRN ×2 (17:55→21:40)
[2017-05-25 22:45] VITALS: BP 116/76; PULSE 75; TEMP 37; O2SAT 92
[2017-05-26] MEDS: HYDROmorphone INJ 2 MG/ML SYR/VIAL IV PRN ×4 (00:33→10:19)
[2017-05-26] MEDS: METOCLOPRAMIDE HCL INJ 5 MG/ML 2 ML VIAL IV SCH (05:34)
[2017-05-26 06:45] VITALS: BP 126/81; PULSE 70; TEMP 37.1; O2SAT 93
[2017-05-26 07:14] LABS: HEMATOCRIT 36.8 % (42-52); MEAN CELL VOLUME 91.8 fL (80-100); MEAN CORPUSCULAR HEMOGLOBIN 29.9 pg (25-34); MEAN CORPUSCULAR HGB CONC 32.6 g/dl (32-36); MEAN PLATELET VOLUME 9.3 fL (7.4-10.4); PLATELET COUNT 170 K/uL (130-400); RED BLOOD COUNT 4.01 M/uL (4.7-6.1); WHITE BLOOD COUNT 10.02 K/uL (4.8-10.8)
[2017-05-26 07:15] VITALS: O2SAT 93
[2017-05-26 07:41] LABS: BUN/CREATININE RATIO 11.3 (10-20); CALCIUM 8.4 mg/dl (8.5-10.1); CREATININE 0.83 mg/dl (0.60-1.40); POTASSIUM 3.8 mmol/L (3.5-5.1)
[2017-05-26] MEDS: D5W AND 1/2NSS + 20MEQ KCL 1,000 ML IV SCH ×2 (08:04→18:17)
[2017-05-26] MEDS: PANTOprazole INJ 40 MG in SYRINGE 0 ML IV SCH (08:51)
[2017-05-26] MEDS ORDERED: OXYC-57 PO (10:52)
--- NOTE | 2017-05-26 10:56 | Discharge Instructions ---
Discharge Instructions Date of Service May 26, 2017. Admission Reason for Admission: Status Post Greg's Procedure Discharge Discharge Diagnosis / Problem: Reversal of Colostomy, repair of parastomal hernia Discharge Goals Goal(s): Decrease discomfort, Improve function Activity Recommendations Activity Limitations: as noted below No heavy lifting over 10 pounds for 6 weeks or until cleared by surgeon No strenuous activity of physical/contact activity for 6 weeks No submerging incisions underwater for 2 weeks (no bathing, swimming, or hot tubs) No driving while taking narcotic pain medication or until you are pain free . Instructions / Follow-Up Instructions / Follow-Up You may shower when you get home. Gently clean incisions with soap and water. Keep dressing on incisions until seen in follow-up wear abdominal binder daily, may take off at bedtime if needed Walking and light activity is encouraged to prevent blood clots from forming Follow-up with Dr. Whitten in 1 week, please call office at [phone] if you do not already have an appointment You may take extra strength Tylenol or Ibuprofen based products as needed for pain however DO NOT alternate Tylenol with Percocet as Percocet has Tylenol in it. Surgical patel will be removed in office at follow up Current Hospital Diet Patient's current hospital diet: NPO Discharge Diet Recommended Diet: Low Fiber Diet Procedures Procedures Performed: Reverse Colostomy, Repair of Parastoma Hernia, lysis adhesion Pending Studies Studies pending at discharge: no Medical Emergencies . Who to Call and When: Medical Emergencies: If at any time you feel your situation is an emergency, please call 911 immediately. . Non-Emergent Contact Non-Emergency issues call your: Primary Care Provider, Surgeon Call Non-Emergent contact if: you have a fever, temperature is above 101.5, your pain is not controlled, your pain is worsening, your pain is unusual for you, wound has increased drainage, wound has increased redness, wound has increased pain . "Provider Documentation" section prepared by Kate Mccrary. . VTE Core Measure Inpt VTE Proph given/why not?: SCD's [place] Drug Monitoring Program Search Results: patient reviewed within database, no issues identified
[2017-05-26] MEDS ORDERED: OXYCODONE/ACETAMINOPHEN 5-325 TAB PO PRN (11:15)
[2017-05-26] MEDS ORDERED: HYDROmorphone INJ 2 MG/ML SYR/VIAL IV PRN (11:15)
--- NOTE | 2017-05-26 11:16 | Surgery Progress Note ---
Surgery Progress Note Date of Service May 26, 2017. Subjective Post OP Day: 4 (s/p reversal of colostomy and repair of parastomal ventral hernia) + feeling well, + ambulating, + flatus, + pain controlled, No chest pain, No SOB , No bowel movement, No nausea, No vomiting Objective Vital Signs: Date Time Temp Pulse Resp B/P (MAP) Pulse Ox O2 Delivery O2 Flow Rate FiO2 05/26/17 06:45 37.1 70 18 126/81 (96) 93 Room Air 05/26/17 00:42 Room Air 05/25/17 22:45 37.0 75 16 116/76 (89) 92 Room Air 05/25/17 15:45 91 Room Air 05/25/17 15:21 37.3 76 18 120/77 (91) 91 Room Air 05/25/17 11:26 37.2 78 20 121/76 (91) 91 Room Air Physical Exam: AYDIN drainage (serous), nasogastric drainage (dark brown output) General Appearance: WD/WN, no apparent distress Head: normocephalic, atraumatic Neck: trachea midline Respiratory/Chest: no respiratory distress, no accessory muscle use Abdomen: normal bowel sounds, non distended, soft, no organomegaly, no pulsatile mass, + tenderness (appropriate post op) Incision(s): clean, dry, intact (dressing intact, incision not inspected, changed dressing at 6 pm last evening) Laboratory Results: Results Past 24 Hours Test 05/26/17 06:58 Range/Units White Blood Count 10.02 4.8-10.8 K/uL Red Blood Count 4.01 4.7-6.1 M/uL Hemoglobin 12.0 14.0-18.0 g/dL Hematocrit 36.8 42-52 % Mean Corpuscular Volume 91.8 80-100 fL Mean Corpuscular Hemoglobin 29.9 25-34 pg Mean Corpuscular Hemoglobin Concent 32.6 32-36 g/dl RDW Standard Deviation 46.8 36.4-46.3 fL RDW Coefficient of Variation 13.9 11.5-14.5 % Platelet Count 170 130-400 K/uL Mean Platelet Volume 9.3 7.4-10.4 fL Sodium Level 135 136-145 mmol/L Potassium Level 3.8 3.5-5.1 mmol/L Chloride Level 102 98-107 mmol/L Carbon Dioxide Level 27 21-32 mmol/L Anion Gap 6.0 3-11 mmol/L Blood Urea Nitrogen 9 7-18 mg/dl Creatinine 0.83 0.60-1.40 mg/dl Est Creatinine Clear Calc Drug Dose 128.7 ml/min Estimated GFR () 119.7 Estimated GFR (Non- 103.3 BUN/Creatinine Ratio 11.3 10-20 Random Glucose 117 70-99 mg/dl Calcium Level 8.4 8.5-10.1 mg/dl Assessment & Plan POD # 4 s/p colostomy reversal and repair of parastomal hernia - vitals stable, afebrile - leukocytosis resolved - NGT with dark red brown output, 700 cc yesterday - + flatus or BM - pain currently controlled with IV Dilaudid Plan: Start PO Percocet as needed for pain, breakthrough Dilaudid decrease to 1.5 mg q3h prn d/c IV Reglan 10 mg q8h start clear liquids d/c NGT Switch to oral Protonix daily Continue IV fluids Continue ambulation and OOB to chair Daily dressing changes AYDIN drain to bulb suction, may remove prior to discharge SCDs Dr. Whitten has seen and examined patient, agrees with above
[2017-05-26] MEDS: OXYCODONE/ACETAMINOPHEN 5-325 TAB PO PRN ×3 (13:34→19:50)
[2017-05-26 15:15] VITALS: BP 118/72; PULSE 68; TEMP 36.8; O2SAT 94
[2017-05-26 22:59] VITALS: BP 132/87; PULSE 74; TEMP 37.2; O2SAT 94
[2017-05-27] MEDS: OXYCODONE/ACETAMINOPHEN 5-325 TAB PO PRN ×2 (02:00→07:32)
[2017-05-27] MEDS: D5W AND 1/2NSS + 20MEQ KCL 1,000 ML IV SCH (03:35)
--- NOTE | 2017-05-27 05:56 | Surgery Progress Note ---
Surgery Progress Note Date of Service May 27, 2017. Subjective wants to go home- tolerating diet had bowel movement Objective Vital Signs: Date Time Temp Pulse Resp B/P (MAP) Pulse Ox O2 Delivery O2 Flow Rate FiO2 05/27/17 00:15 Room Air 05/26/17 22:59 37.2 74 16 132/87 (102) 94 Room Air 05/26/17 16:42 Room Air 05/26/17 15:15 36.8 68 20 118/72 (87) 94 Room Air 05/26/17 07:15 93 Room Air 05/26/17 06:45 37.1 70 18 126/81 (96) 93 Room Air General Appearance: no apparent distress Respiratory/Chest: no respiratory distress Abdomen: soft Incision(s): intact Laboratory Results: Results Past 24 Hours Test 05/26/17 06:58 Range/Units White Blood Count 10.02 4.8-10.8 K/uL Red Blood Count 4.01 4.7-6.1 M/uL Hemoglobin 12.0 14.0-18.0 g/dL Hematocrit 36.8 42-52 % Mean Corpuscular Volume 91.8 80-100 fL Mean Corpuscular Hemoglobin 29.9 25-34 pg Mean Corpuscular Hemoglobin Concent 32.6 32-36 g/dl RDW Standard Deviation 46.8 36.4-46.3 fL RDW Coefficient of Variation 13.9 11.5-14.5 % Platelet Count 170 130-400 K/uL Mean Platelet Volume 9.3 7.4-10.4 fL Sodium Level 135 136-145 mmol/L Potassium Level 3.8 3.5-5.1 mmol/L Chloride Level 102 98-107 mmol/L Carbon Dioxide Level 27 21-32 mmol/L Anion Gap 6.0 3-11 mmol/L Blood Urea Nitrogen 9 7-18 mg/dl Creatinine 0.83 0.60-1.40 mg/dl Est Creatinine Clear Calc Drug Dose 128.7 ml/min Estimated GFR () 119.7 Estimated GFR (Non- 103.3 BUN/Creatinine Ratio 11.3 10-20 Random Glucose 117 70-99 mg/dl Calcium Level 8.4 8.5-10.1 mg/dl Assessment & Plan 05/27/17- progressing well- for discharge today d/c drain
[2017-05-27] MEDS ORDERED: LEVOTHYROXINE 200 MCG TAB PO SCH (06:00)
[2017-05-27 07:00] VITALS: BP 128/87; PULSE 66; TEMP 36.8; O2SAT 94
[2017-05-27 07:30] VITALS: O2SAT 94
[2017-05-27] MEDS ORDERED: ATORVASTATIN 40 MG TAB PO SCH (09:00)
[2017-05-27] MEDS ORDERED: LISINOPRIL 20 MG TAB PO SCH (09:00)
[2017-05-27] MEDS ORDERED: PANTOprazole SOD 40 MG TAB PO SCH (09:00)
[2017-05-27] MEDS ORDERED: METOPROLOL TARTRATE 25 MG TAB PO SCH (09:00)
[2017-05-27 09:51] VITALS: BP 128/87; PULSE 66; TEMP 36.8; O2SAT 94
--- NOTE | 2017-05-29 14:31 | Discharge Summary ---
Discharge Summary Dates Admission Date / Time: May 22, 2017 at 11:58 Discharge Date: May 27, 2017 Dispostion / Condition Discharge Disposition: Home Condition at Discharge: Good Principal Diagnosis (1) Hx of diverticulitis of colon Problem List (1) Hypertension (2) Hypothyroidism (3) Aortic aneurysm (4) Chest pain Consultations / Procedures Consultations: None Procedures: Reversal of colostomy with repair of parastomal hernia Medication Reconciliation Changed Medications: Oxycodone/Acetaminophen 5MG/325MG (Percocet 5MG/325MG) Tab 1-2 TABLET PO Q4H PRN for Pain, #30 TAB 0 Refills (Changed from: 1 TABLET; QID; Refills: ) PAIN Continued Medications: Aspirin Enteric Coated (Ecotrin Or Generic) 81 Mg Tab 81 MG PO QAM, TAB Atorvastatin (Lipitor) 80 Mg Tab 80 MG PO QAM, TAB Levothyroxine Sodium (Synthroid) 200 Mcg Tab 200 MCG PO QAM, TAB Lisinopril (Prinivil) 20 Mg Tab 20 MG PO QAM, TAB Metoprolol Tartrate (Lopressor) (Lopressor) 25 Mg Tab 25 MG PO BID, TAB Discontinued Medications: Erythromycin (Erythromycin) 500 Mg Tab 1 TAB PO UD for 10 Days, TAB BEFORE SURG Neomycin Sulfate (Neomycin Sulfate) 500 Mg Tab 2 TAB PO UD for 10 Days, TAB EFORE SURG Admission HPI Per the Admitting provider: Duncan is a 51 year-old male who underwent formation of colostomy urgently given incarcerated right inguinal hernia containing colon with colon perforation 3 months ago. Duncan presented for elective reversal of colostomy with parastomal hernia repair. He was informed of procedure and risks and informed consent obtained for the proposed procedure by DR. Whitten. Hospital Course (1) S/P close colostomy, repair para-stomal hernia Patient was taken to operating room for colostomy reversal and repair of parastomal hernia repair. Patient tolerated procedure well without any complications. Was transferred to recovery room in stable condition and then medical/surgical floor for postoperative care. An NGT was placed in the operating room and was continued on low intermittent suction. Castelan to gravity. NPO, IV fluids, IV antibiotics, IV zofran, IV Dilaudid, and AYDIN drain to bulb suction were his postoperative orders. POD # 1 patient's pain was moderate to severe and not controlled with Dilaudid every 3 hours. A Dilaudid MOVABLE BULKHEAD INSTALLER was started which controlled his pain better. Patient was up and ambulating the night of his operation. No flatus or bowel movements. There was no NGT output since the surgery therefore the NGT was advanced. POD # 2 WBC decreased to 12.34K. There was 400 cc of dark bilious output in the NGT in the last shift. No return of bowel function. IV Protonix BID was started given dark/black NGT output. POD # 3 leukocytosis resolved. 900 cc of NGT output yesterday in 24 hours. Dilaudid MOVABLE BULKHEAD INSTALLER was discontinued and IV Dilaudid 2 mg q 3 hours ordered. Also started Reglan 10 mg IV q 8 hours. NGT was continued given high output the day before. POD # 4 patient was finally passing flatus, still ambulating without difficulty pain controlled with IV Dilaudid. NGT was removed and started on cleared liquids. IV Protonix was converted to oral Protonix daily. PO Percocet was started with breakthrough Dilaudid 1.5 mg q 3 hours as needed. POD # 5 patient had a bowel movement, tolerated clear liquids , pain controlled and wanted to go home. AYDIN drain was removed and patient was discharged home in stable condition. Discharge Instructions as given to patient Copies To Primary Care Provider: Tc Desouza Jr,D.O..
== END 2017-05-27 10:15 | disposition home or self-care (01) | DRG 346 ==
LOC: C.ACU 06:35 → C.MSN 11:58 → ENRESERV 12:41
PROVIDERS: ADMIT Surgery; ATTEND Surgery
PROC: 0WQF0ZZ Repair Abdominal Wall, Open Approach (ICD-10-PCS; principal; 2017-05-22 08:30)
PROC: 0DSN0ZZ Reposition Sigmoid Colon, Open Approach (ICD-10-PCS; principal; 2017-05-22 08:30)
DX: Z43.3 Encounter for attention to colostomy (principal); K43.5 Parastomal hernia without obstruction or gangrene; F17.200 Nicotine dependence, unspecified, uncomplicated; Z79.899 Other long term (current) drug therapy; Z79.82 Long term (current) use of aspirin; Z83.3 Family history of diabetes mellitus; Z82.49 Family history of ischemic heart disease and other diseases of the circulatory system